=== PATIENT | female | born 1940 | race Caucasian/White ===

== ENCOUNTER → 2020-10-12 15:22 | Outpatient (BNV) | payer MEDICARE, SELFPAY | PROVIDERS: PCP Internal Medicine; Visit Provider Internal Medicine | DX: D72.819 Decreased white blood cell count, unspecified (principal) | CPT/HCPCS: 99212; 99213; 99214; G2211 ==

== ENCOUNTER 2020-12-19 10:44 | Outpatient (REF) | payer MEDICARE, SELFPAY ==
--- NOTE | ~2020-12-19 | XR_ITS ---
EXAMINATION: XR CHEST CLINICAL INFORMATION: Cough COMPARISON: Previous chest x-rays most recent October [address] October 2016 TECHNIQUE: 2 views of the chest were obtained. FINDINGS: The cardiac and mediastinal contours are stable. The right pulmonary hilum is slightly prominent but appears unchanged from old exams. The lung volumes are low. The lungs are clear. There is no pleural effusion or pneumothorax. There are degenerative changes of the spine. XR/XR chest 2V IMPRESSION: No evidence for acute disease in the chest.
== END 2020-12-19 10:45 | disposition home or self-care (01) ==
LOC: HO.LAB 10:44
PROVIDERS: Visit Provider Nurse Practitioner Family
DX: R05 Cough (principal); Z20.822 Contact with and (suspected) exposure to COVID-19
CPT/HCPCS: 36415; 71046; U0003; U0005

== ENCOUNTER 2020-12-19 10:55 | Outpatient (REF) | payer MEDICARE, SELFPAY | END 2020-12-19 10:56 | disposition home or self-care (01) | LOC: HO.HMGCX 10:55 | PROVIDERS: PCP Internal Medicine; Visit Provider Nurse Practitioner Family | DX: Z13.89 Encounter for screening for other disorder (principal) ==

== ENCOUNTER 2021-04-29 10:41 | Outpatient (REF) | payer MEDICARE, SELFPAY ==
--- NOTE | ~2021-04-29 | XR_ITS ---
EXAMINATION: XR CHEST CLINICAL INFORMATION: Cough COMPARISON: Previous chest x-ray November 2020 TECHNIQUE: 2 views of the chest were obtained. FINDINGS: The cardiac and mediastinal contours are stable. The lung volumes are low. The lungs are clear. There is no pleural effusion or pneumothorax. There are degenerative changes of the spine. XR/XR chest 2V IMPRESSION: No evidence for acute disease in the chest.
== END 2021-04-29 10:42 | disposition home or self-care (01) ==
LOC: HO.LAB 10:41
PROVIDERS: Visit Provider Nurse Practitioner Family
DX: Z20.822 Contact with and (suspected) exposure to COVID-19 (principal); R05 Cough
CPT/HCPCS: 71046; U0003; U0005

== ENCOUNTER 2021-04-29 10:51 | Outpatient (REF) | payer MEDICARE, SELFPAY | END 2021-04-29 10:52 | disposition home or self-care (01) | LOC: HO.HMGCX 10:51 | PROVIDERS: PCP Internal Medicine; Visit Provider Nurse Practitioner Family | DX: Z13.89 Encounter for screening for other disorder (principal) ==

== ENCOUNTER 2021-11-07 08:06 | Outpatient (REF) | payer MEDICARE, SELFPAY ==
[2021-11-07 10:43] LABS: Appearance Urine HAZY; Color Urine YELLOW; Glucose Urine UA NEG (NEG); Leukocyte Esterase Urine 1+ (NEG); Nitrite Urine NEG (NEG); PH 6.5 (5.0-8.0); Specific Gravity - Urine <= 1.005 (1.005-1.025); Urine Blood NEG (NEG); Urine Ketones NEG (NEG); Urine Protein NEG (NEG-TRACE)
[2021-11-07 10:45] LABS: Hematocrit 38.9 % (37.0-47.0); Hemoglobin 12.6 g/dl (12.0-16.0); Mean Corpuscular HGB Conc 32.4 g/dl (31.0-35.0); Mean Corpuscular Hemoglobin 29.4 pg (27.0-33.0); Mean Corpuscular Volume 90.9 fL (80.0-98.0); Mean Platelet Volume 12.1 fL (9.4-12.3); Platelet Count 201 X10*3/uL (160-400); Red Blood Count 4.28 X10*6/uL (4.20-5.50); Red Cell Distribution Width 13.9 % (11.0-16.0); White Blood Count 3.3 X10*3/uL (4.8-10.8)
[2021-11-07 10:46] LABS: Alanine Aminotransferase 10 U/L (0-31); Albumin Level 4.2 g/dL (3.5-5.0); Alkaline Phosphatase 57 U/L (39-117); Anion Gap 11 (12-20); Aspartate Amino Transferase 14 U/L (5-31); Bilirubin Direct 0.3 mg/dL (0.0-0.5); Bilirubin Total 0.6 mg/dL (0.0-1.0); Blood Urea Nitrogen 16 mg/dL (9-16); Calcium 8.9 mg/dL (8.4-10.2); Carbon Dioxide 25 mmol/L (22-29); Chloride 106 mmol/L (96-108); Cholesterol 177 mg/dL; Estimated Glomerular Filt Rate > 60; Glucose Random 74 mg/dL (60-115); HDL Cholesterol 51 mg/dL; LDL Cholesterol Calculated 108 mg/dl; Potassium 4.5 mmol/L (3.3-5.1); Sodium 137 mmol/L (135-145); Total Protein 7.1 g/dL (6.5-8.0); Triglycerides 92 mg/dL
[2021-11-07 11:07] LABS: Thyroid Stimulating Hormone 2.33 uIU/mL (0.32-4.0)
[2021-11-07 11:12] LABS: Bacteria Urine 1+ /LPF; Mucus Urine 1+ /LPF; RBC Urine 0 /HPF (0); Squamous Epithelial Cell Urine 1+ /LPF
[2021-11-12 14:43] LABS: Vitamin D 25-OH, D2 <4 ng/mL; Vitamin D 25-OH, D3 11 ng/mL; Vitamin D 25-OH, Total 11 ng/mL (30-100)
== END 2021-11-07 08:07 | disposition home or self-care (01) ==
LOC: HO.10HDL 08:06
PROVIDERS: Visit Provider Internal Medicine
DX: I10 Essential (primary) hypertension (principal)
CPT/HCPCS: 36415; 80048; 80061; 80076; 81001; 82306; 84443; 85027

== ENCOUNTER 2021-11-11 09:18 | Outpatient (REF) | payer MEDICARE, SELFPAY ==
--- NOTE | ~2021-11-11 | XR_ITS ---
EXAMINATION: XR CHEST CLINICAL INFORMATION: Cough. COMPARISON: Chest 04/29/2021 TECHNIQUE: 2 views of the chest were obtained. FINDINGS: The lungs are well-expanded and clear of acute process. The heart size and pulmonary vascularity is normal. No gross bony abnormality seen. XR/XR chest 2V IMPRESSION: Unremarkable chest exam.
[2021-11-11 09:49] LABS: Binax Internal Control QC Valid; Binax Now Covid-19 Ag Negative (Negative); Binax Performed by: HO.BONILM
[2021-11-11 11:45] LABS: Appearance Urine CLEAR; Color Urine YELLOW; Glucose Urine UA NEG (NEG); Leukocyte Esterase Urine TRACE (NEG); Nitrite Urine NEG (NEG); Specific Gravity - Urine <= 1.005 (1.005-1.025); Urine Blood NEG (NEG); Urine Ketones NEG (NEG); Urine Protein NEG (NEG-TRACE)
[2021-11-11 11:56] LABS: Bacteria Urine TRACE /LPF; RBC Urine 0-2 /HPF (0); Squamous Epithelial Cell Urine 1+ /LPF
== END 2021-11-11 09:19 | disposition home or self-care (01) ==
LOC: HO.HMGCLDS 09:18
PROVIDERS: PCP Internal Medicine; Visit Provider Physician Assistant
DX: R05.9 Cough, unspecified (principal)
CPT/HCPCS: 71046; 81001

== ENCOUNTER 2022-02-27 08:50 | Outpatient (REF) | payer MEDICARE, SELFPAY ==
[2022-02-27 10:42] LABS: Thyroid Stimulating Hormone 2.04 uIU/mL (0.32-4.0)
[2022-02-27 10:47] LABS: Alanine Aminotransferase 15 U/L (0-31); Albumin Level 4.3 g/dL (3.5-5.0); Alkaline Phosphatase 60 U/L (39-117); Anion Gap 14 (12-20); Aspartate Amino Transferase 16 U/L (5-31); Bilirubin Direct 0.2 mg/dL (0.0-0.5); Bilirubin Total 0.5 mg/dL (0.0-1.0); Blood Urea Nitrogen 20 mg/dL (9-16); Calcium 9.5 mg/dL (8.4-10.2); Carbon Dioxide 25 mmol/L (22-29); Chloride 103 mmol/L (96-108); Cholesterol 181 mg/dL; Estimated Glomerular Filt Rate > 60; Glucose Random 77 mg/dL (60-115); HDL Cholesterol 53 mg/dL; LDL Cholesterol Calculated 113 mg/dl; Potassium 4.7 mmol/L (3.3-5.1); Sodium 137 mmol/L (135-145); Total Protein 7.5 g/dL (6.5-8.0); Triglycerides 78 mg/dL
== END 2022-02-27 08:51 | disposition home or self-care (01) ==
LOC: HO.LAB 08:50
PROVIDERS: PCP Internal Medicine; Visit Provider Internal Medicine
DX: I10 Essential (primary) hypertension (principal)
CPT/HCPCS: 36415; 80048; 80061; 80076; 84443

== ENCOUNTER 2022-04-18 16:41 | Outpatient (REF) | payer MEDICARE, SELFPAY ==
--- NOTE | ~2022-04-18 | XR_ITS ---
EXAMINATION: XR CHEST CLINICAL INFORMATION: Acute bronchitis. COMPARISON: 11/11/2021 chest radiographs. TECHNIQUE: 2 views of the chest were obtained. FINDINGS: No significant abnormality is noted involving the heart, lungs, mediastinum, bony thorax or soft tissues. XR/XR chest 2V IMPRESSION: No acute cardiopulmonary process.
== END 2022-04-18 16:42 | disposition home or self-care (01) ==
LOC: HO.HMGCX 16:41
PROVIDERS: PCP Internal Medicine; Visit Provider Internal Medicine
DX: Z20.822 Contact with and (suspected) exposure to COVID-19 (principal); J20.9 Acute bronchitis, unspecified
CPT/HCPCS: 71046

== ENCOUNTER 2022-05-20 17:44 | Emergency (ER) | payer MEDICARE, SELFPAY ==
--- NOTE | 2022-05-20 | ECG_ITS ---
Test Reason : sob Blood Pressure : / mmHG Vent. Rate : 093 BPM Atrial Rate : 093 BPM P-R Int : 158 ms QRS Dur : 078 ms QT Int : 328 ms P-R-T Axes : -01 -06 019 degrees QTc Int : 407 ms Normal sinus rhythm Cannot rule out Anterior infarct , age undetermined Abnormal ECG When compared with ECG of 15-MAY-2019 03:34, No significant change was found Referred By: Generic ED Physician Electronically Signed By:LEANNA BOYER
--- NOTE | ~2022-05-20 | XR_ITS ---
EXAMINATION: XR CHEST CLINICAL INFORMATION: COVID positive, rule out pneumonia. COMPARISON: 04/18/2022 chest radiograph. TECHNIQUE: Frontal view of the chest was obtained. FINDINGS: No significant abnormality is noted involving the heart, lungs, mediastinum, bony thorax or soft tissues. XR/XR chest 1V IMPRESSION: No acute cardiopulmonary process.
[2022-05-20 19:26] VITALS: BP 156/69; PULSE 95; RESP 20; TEMP 36.9; O2SAT 96; BMI 33.7
[2022-05-20 19:54] LABS: COVID-19 Test Positive (Negative); IDNOW Serial# 16C4AD1C
--- NOTE | 2022-05-20 23:16 | ED_ITS ---
HPI - URI/Sore Throat General Chief Complaint: Upper Respiratory Symptoms Stated Complaint: Cough COVID + Time Seen by Provider: 05/20/22 21:33 Source: patient Mode of arrival: ambulatory Limitations: no limitations History of Present Illness HPI Narrative: this is an 82-year-old female with a history of hypertension, chronic bronchitis who presents to the emergency room with 2 days of nonproductive cough, fatigue, headache, body aches, chest discomfort with coughing. Patient took a home COVID test that was positive. She has had 3 COVID vaccinations. She denies any shortness of breath, leg swelling or leg pain, fevers, neck pain or stiffness, rash, abdominal pain, vomiting, diarrhea. Related Data Previous Rx's Medication Instructions Recorded albuterol sulfate 90 mcg/actuation 1 inh inhalation Q4-6H PRN 11/11/21 aerosol inhaler (ProAir HFA) shortness of breath or wheezing #6.7 grams lisinopril 20 mg tablet 20 mg PO DAILY #90 tabs 11/27/21 cholecalciferol (vitamin D3) 1,250 1,250 mcg PO QWEEK #12 caps 02/05/22 mcg (50,000 unit) capsule pantoprazole 40 mg tablet,delayed 40 mg PO DAILY #90 tabs 03/05/22 release amitriptyline 10 mg tablet 10 mg PO DAILY #90 tabs 04/24/22 metoprolol succinate 25 mg 25 mg PO DAILY #90 tabs 04/24/22 tablet,extended release 24 hr azithromycin 250 mg tablet See Rx Instructions PO .COMPLEX #6 05/20/22 tabs codeine 10 mg-guaifenesin 100 mg/5 10 ml PO Q4-6H PRN cough #118 mL 05/20/22 mL oral liquid (Virtussin AC) prednisone 20 mg tablet 40 mg PO DAILY #10 tabs 05/20/22 Allergies Allergy/AdvReac Type Severity Reaction Status Date / Time ENVIRONMENTAL Allergy Mild CONGESTION Uncoded 05/15/22 10:16 Review of Systems Review of Systems: Yes all other systems are reviewed and are negative Constitutional: Constitutional: Reports no additional constitutional complaints, Reports body ache(s), Denies chills, Reports fatigue, Denies fever(s), Reports headache(s) and Denies weakness Eyes: Eyes: Reports no additional eye complaints and Denies change in vision ENT: Reports system reviewed and no additional complaints, except as documented, Denies dizziness, Reports headache(s), Denies nasal congestion, Denies nasal discharge and Denies neck pain Cardiovascular: Cardiovascular: Reports no additional cardiovascular complaints, Reports chest pain, Denies leg edema and Denies dyspnea Respiratory: Respiratory: Reports no additional respiratory complaints, Reports cough and Denies dyspnea Gastrointestinal: Gastrointestinal: Reports no additional gastrointestinal complaints, Denies abdominal pain, Denies diarrhea, Denies nausea and Denies vomiting Genitourinary: Genitourinary: Reports no additional female genitourinary complaints and Denies urinary incontinence Musculoskeletal: Musculoskeletal: Reports no additional musculoskeletal complaints, Denies back pain, Denies arthralgias, Denies joint swelling, Denies neck pain, Denies numbness and Denies tingling Integumentary/Breasts: Skin/Breast: Reports system reviewed and no additional complaints, except as docu and Denies rash Neurologic: Reports system reviewed and no additional complaints, except as documented, Denies Abnormal speech present, Denies dizziness, Reports headache(s), Denies numbness, Denies tingling and Denies weakness Endocrine: Endocrine: Reports fatigue PMF Past Medical History Attestation statement: The following information was validated with the patient. Source: old records reviewed and nursing notes reviewed Medical History Chronic anxiety Chronic leukopenia GERD (gastroesophageal reflux disease) History of bronchitis Hypertension Osteoarthritis Surgical History History of cholecystectomy Family History Family History Father Medical history unknown Mother Cancer Sister No problems noted. Son No problems noted. Daughter No problems noted. 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) Vision needs: No Physical Exam Vital Signs: Vital Signs: Last Vital Signs Temp 98.5 F 05/20/22 19:26 Pulse 93 05/20/22 23:33 Resp 18 05/20/22 23:33 BP 165/75 H 05/20/22 23:33 Pulse Ox 97 05/20/22 23:33 O2 Del Method 05/20/22 23:33 BMI result Body Mass Index 33.7 Const: General: cooperative, healthy appearing, comfortable and no acute distress Orientation/consciousness: patient oriented x3 Limitations: no limitations HEENT: Head: Yes normal to inspection Ears: hearing grossly normal bilaterally and TM's normal bilaterally General nose exam: Normal external nose present Face and sinus: Yes normal facial exam Mouth: Normal oral and palatal mucosa present Throat: Yes posterior oropharynx normal, Yes tonsils normal and Yes uvula midline Eyes: General: appearance normal, both eyes and all related structures Pupils: Equal, round and reactive pupils present Neck: Neck: Yes normal visual inspection, Yes full ROM, Yes no lymphadenopathy and Yes no meningeal signs Chest: Chest palpation & inspection: normal inspection of the chest Resp: Effort & Inspection: normal respiratory effort Auscultation: clear to auscultation bilaterally Cardio: Rate: regular rate Rhythm: regular rhythm Peripheral pulses: Peripheral pulses 2+ throughout GI: Inspection: Yes normal to inspection Palpation (GI): Soft to palpation and nontender Auscultation: normal bowel sounds Back/Spine/Pelvis: Thoracic/Lumbar Spine: thoracic and lumbar spine normal to inspection Skin: General skin exam: no rashes or lesions noted Neuro: General: patient oriented x3, no meningeal signs, no focal motor deficits and normal sensation to monofilament Cranial nerves: Yes Equal, round and reactive pupils present Cognition (Neuro): normal cognition Speech: No Abnormal speech present Gait exam (Neuro): Normal gait present Motor exam (neuro): 5/5 motor strength present throughout Extrem: General: Yes normal to inspection, Yes no pedal edema and Yes no calf tenderness Course Course Course Narrative: COVID screen is positive. Chest x-ray shows no occult pneumonia. I discussed this with the patient. We reviewed current treatment options for COVID-19 which are under emergency use authorization and are not FDA approved. these include monoclonal antibodies and Paxlovid. I reviewed both medications with the patient and at this time she is not interested in treatment. I will send her home with prednisone burst, antibiotic course and cough suppressant for night time. Patient has adequate albuterol at home which she can take as needed. We discussed that she should return for any shortness of breath, worsening chest pain, weakness. She is comfortable with this plan of care. Patient is up and ambulating with NO SOB/CP and appears well overall and nontoxic. MDM - URI/Sore Throat MDM Narrative Medical decision making narrative: This is an 82-year-old female who to go home COVID test that was positive who presents today with nonproductive cough, chest discomfort with coughing, headache, body aches, fatigue. Patient has had symptoms for 2 days. On arrival her vital signs are stable. She has no tachypnea, tachycardia, hypoxia or fever. Her lungs are clear. She does have some chest discomfort with coughing only. It is not pleuritic in nature. She has no leg pain or leg swelling. Patient reports history of chronic bronchitis which normally improved with antibiotics and prednisone. She does have an albuterol inhaler at home which she uses for cough as needed. Will check chest x-ray to rule out occult pneumonia, COVID screen here. Medical Records Attestation: I reviewed the patient's medical records. Lab Data Attestation: I reviewed the patient's lab results. Labs: Lab Results 05/20/22 Range/Units 19:42 COVID-19 ([facility]) Positive A (Negative) COVID-19 Clin Com See Note Imaging Data Chest x-ray: Attestation: I personally reviewed and interpreted this imaging study as follows: Radiologist's impression: [address] [address] XRay Report Signed Patient: Elisabeth Darling MR#: [id number] : 1940 Acct:[id number] Age/Sex: 82 / F ADM Date: 05/20/22 Loc: HO.ED Attending Dr: Ordering Physician: Kala Stanley MD Date of Service: 05/20/22 Procedure(s): XR chest 1V Accession Number(s): [id number] cc: Kala Stanley MD~ EXAMINATION: XR CHEST CLINICAL INFORMATION: COVID positive, rule out pneumonia. COMPARISON: 04/18/2022 chest radiograph. TECHNIQUE: Frontal view of the chest was obtained. FINDINGS: No significant abnormality is noted involving the heart, lungs, mediastinum, bony thorax or soft tissues. XR/XR chest 1V IMPRESSION: No acute cardiopulmonary process. ? ECG Data Attestation: I personally reviewed and interpreted this ECG as follows: ECG interpretation date: 05/21/22 ECG interpretation time: 19:32 Interpretation: NSR with rate 93, normal pr. normal qrs, normal qtc Discharge Plan Discharge Clinical Impression: COVID-19 Patient Disposition: Home, Self-Care Instructions: COVID-19 (Coronavirus Disease 2019) (ED) Additional Instructions: we discussed current treatments available for COVID including monoclonal antibodies and Paxlovid. At this time he decided to declined this. If you c hange your mind call me tomorrow. Take Motrin or Tylenol for pain or fever as needed Increase fluids, rest Return for chest pain, shortness of breath as discussed. Continue quarantine Prescriptions: New azithromycin 250 mg tablet See Rx Instructions .ROUTE .COMPLEX Qty: 6 0RF Rx Instructions: For 250 mg dose pack: take 500 mg today (day 1), then 250 mg for 4 days (days 2-5) prednisone 20 mg tablet 40 mg PO DAILY Qty: 10 0RF codeine-guaifenesin [Virtussin AC] 10-100 mg/5 mL liquid 10 ml PO Q4-6H PRN (Reason: cough) Qty: 118 0RF No Action lisinopril 20 mg tablet 20 mg PO DAILY Qty: 90 1RF cholecalciferol (vitamin D3) 1,250 mcg (50,000 unit) capsule 1,250 mcg PO QWEEK Qty: 12 1RF pantoprazole 40 mg tablet,delayed release (DR/EC) 40 mg PO DAILY Qty: 90 1RF amitriptyline 10 mg tablet 10 mg PO DAILY Qty: 90 0RF metoprolol succinate 25 mg tablet extended release 24 hr 25 mg PO DAILY Qty: 90 0RF albuterol sulfate [ProAir HFA] 90 mcg/actuation HFA aerosol inhaler 1 inh inhalation Q4-6H PRN (Reason: shortness of breath or wheezing) Qty: 6.7 0RF Referrals: Mustapha Andrew MD [Primary Care Provider] - 1 week (as needed) Interventions: ED Discharge Assessment Last Done: 05/20/22 23:32 Discharge Date/Time: 05/20/22 23:34
[2022-05-20 23:33] VITALS: BP 165/75; PULSE 93; RESP 18; O2SAT 97
== END 2022-05-20 23:34 | disposition home or self-care (01) ==
PROVIDERS: Emergency Provider Internal Medicine; PCP Internal Medicine
DX: U07.1 COVID-19 (principal); R05.9 Cough, unspecified; M79.10 Myalgia, unspecified site; R51.9 Headache, unspecified; Z79.899 Other long term (current) drug therapy
CPT/HCPCS: 71045; 87635; 93005; 99283

== ENCOUNTER 2022-08-14 14:12 | Outpatient (REF) | payer MEDICARE, SELFPAY ==
--- NOTE | ~2022-08-14 | XR_ITS ---
EXAMINATION: XR CHEST CLINICAL INFORMATION: Cough COMPARISON: 05/20/2022 TECHNIQUE: 2 views of the chest were obtained. FINDINGS: Lung volumes are low. Hazy opacity at the left base with bronchial wall thickening throughout. No pleural effusion or pneumothorax. The cardiomediastinal silhouette is size. Degenerative changes of the spine. XR/XR chest 2V IMPRESSION: Bronchial wall thickening can be seen with a small airways process such as asthma or atypical/viral infection. Left basilar opacity could represent superimposed atelectasis or pneumonia.
== END 2022-08-14 14:13 | disposition home or self-care (01) ==
LOC: HO.HMGCX 14:12
PROVIDERS: PCP Internal Medicine
DX: R05.9 Cough, unspecified (principal)
CPT/HCPCS: 71046

== ENCOUNTER 2022-08-31 08:15 | Emergency (ER) | payer MEDICARE, SELFPAY ==
--- NOTE | ~2022-08-31 | CT_ITS ---
EXAMINATION: CT SINUS WITHOUT CONTRAST CLINICAL INFORMATION: Congestion. COMPARISON: None TECHNIQUE: Noncontrast CT imaging examination of the paranasal sinuses performed. The axial images and multiplanar reformatted images are reviewed. This CT examination was performed using dose optimization techniques as appropriate, variously including the following: *Automated exposure control *Adjustment of mA and/or kV according to patient size (this includes techniques or standardized protocols for targeted exams where dose is matched to indication/reason for exam; i.e. extremities or head) *Use of iterative reconstruction technique DLP: 107 mGy-cm FINDINGS: Frontal sinuses and drainage pathways: Normal. Maxillary sinuses and drainage pathways: Normal. No evidence of mucosal thickening along the ostium and infundibulum. Ethmoid and sphenoid sinuses: Well aerated. Ethmoid roofs are symmetric and lamina papyracea are intact. The sphenoid ostia are patent. Carotid canals are covered by bone. Nasal cavity and nasopharynx: Unremarkable. Orbits: Prior ocular lens extractions. The extraocular muscles, optic nerves and retrobulbar fat are unremarkable. Facial bones, mastoids and temporomandibular joints: Intact. No mastoid effusion. Imaged portions of the brain parenchyma: Normal attenuation. No extra-axial fluid collection within the examined [id number]. CT/CT sinus wo IV con IMPRESSION: The paranasal sinuses are well aerated. No mucoperiosteal thickening or air-fluid levels. No evidence of either acute or chronic sinusitis.
--- NOTE | 2022-08-31 08:17 | ECG_ITS ---
Test Reason : CHEST PAIN Blood Pressure : / mmHG Vent. Rate : 089 BPM Atrial Rate : 089 BPM P-R Int : 156 ms QRS Dur : 078 ms QT Int : 340 ms P-R-T Axes : 004 001 030 degrees QTc Int : 413 ms Normal sinus rhythm Cannot rule out Anterior infarct (cited on or before 20-MAY-2022) Abnormal ECG When compared with ECG of 20-MAY-2022 19:32, No significant change was found Referred By: Easton Waters Electronically Signed By:ODETTE EUGENE MD
[2022-08-31 08:33] VITALS: PULSE 85; RESP 22; O2SAT 98; BMI 34.3
--- NOTE | 2022-08-31 08:47 | ED.SOB ---
HPI - SOB/Dyspnea General Chief Complaint: Dyspnea Stated Complaint: Chest pain/Difficulty breathing Time Seen by Provider: 08/31/22 08:17 Source: patient and family Mode of arrival: ambulatory Limitations: no limitations History of Present Illness HPI Narrative: 82 year old female with PMH of COVID, bronchitis, hypertension and leukopenia presents to the ED this morning c/o continued symptoms of cough, nasal and sinus congestion and excessive mucous production. The patient has been seen by her PCP as well as ENT for the same problem, without resolution. She states that she came to the ER this morning so you could figure out what's wrong . MD elicited complaint: cough and chest pain (with coughing) Onset (ago): month(s) Timing: constant Severity: moderate Exacerbating factors: lying flat Relieving factors: nothing Related Data Home oxygen amount: none Previous Rx's Medication Instructions Recorded albuterol sulfate 90 mcg/actuation 1 inh inhalation Q4-6H PRN 11/11/21 aerosol inhaler (ProAir HFA) shortness of breath or wheezing #6.7 grams codeine 10 mg-guaifenesin 100 mg/5 10 ml PO Q4-6H PRN cough #118 mL 05/20/22 mL oral liquid (Virtussin AC) prednisone 20 mg tablet 40 mg PO DAILY #10 tabs 05/20/22 lisinopril 20 mg tablet 20 mg PO DAILY #90 tabs 05/22/22 amitriptyline 10 mg tablet 10 mg PO DAILY #90 tabs 07/18/22 metoprolol succinate 25 mg 25 mg PO DAILY #90 tabs 07/18/22 tablet,extended release 24 hr cholecalciferol (vitamin D3) 1,250 1,250 mcg PO QWEEK #12 caps 08/01/22 mcg (50,000 unit) capsule acetaminophen 120 mg-codeine 12 10 ml PO Q4-6H PRN pain #200 mL 08/14/22 mg/5 mL (5 mL) oral solution azithromycin 250 mg tablet See Rx Instructions PO .COMPLEX #6 08/14/22 (Zithromax Z-Meet) tabs pantoprazole 40 mg tablet,delayed 40 mg PO DAILY #90 tabs 08/28/22 release benzonatate 200 mg capsule 200 mg PO TID PRN cough #20 caps 08/31/22 fluticasone propionate 50 1 spray intranasal BID #16 grams 08/31/22 mcg/actuation nasal spray,suspension (Flonase Allergy Relief) Allergies Allergy/AdvReac Type Severity Reaction Status Date / Time ENVIRONMENTAL Allergy Mild CONGESTION Uncoded 08/14/22 13:52 Review of Systems Review of Systems: Constitutional: Denies chills and Denies fever(s) Eyes: Denies blurry vision and Denies diplopia ENT: Denies dizziness, admits to nasal congestion and sore throat Cardiovascular: admits to chest pain(with cough), Denies syncope and Denies rapid heart rate Respiratory: admits to cough and Denies wheezing Gastrointestinal: Denies diarrhea, Denies nausea and Denies vomiting Genitourinary: No vaginal bleeding. No discharge. Musculoskeletal: Denies back pain and Denies myalgias Neuro: Denies dizziness and Denies syncope Allergic/Immunologic: Denies wheezing, rash Neurologic: Denies Sensory deficit (Neuro) [facility] Past Medical History Medical History Chronic anxiety Chronic leukopenia GERD (gastroesophageal reflux disease) History of bronchitis Hypertension Osteoarthritis Surgical History History of cholecystectomy Family History Family History Father Medical history unknown Mother Cancer Sister No problems noted. Son No problems noted. Daughter No problems noted. 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) Vision needs: No Physical Exam Vital Signs: Vital Signs: Last Vital Signs Temp 97.7 F 08/31/22 11:20 Pulse 78 08/31/22 11:20 Resp 16 08/31/22 11:20 BP 155/61 H 08/31/22 11:20 Pulse Ox 98 08/31/22 08:56 O2 Del Method 08/31/22 11:20 BMI result Body Mass Index 34.3 VS stable and normal Const: General: cooperative, healthy appearing, comfortable and no acute distress Nutritional Appearance: obese Orientation/consciousness: patient oriented x3 HEENT: Head: Yes normal to inspection, Yes normocephalic and Yes atraumatic Ears: external ears normal General nose exam: Normal external nose present Face and sinus: Yes normal facial exam Mouth: Normal oral and palatal mucosa present Eyes: Conjunctivae: conjunctivae normal Sclerae: sclerae normal Pupils: Equal, round and reactive pupils present EOM: EOMs intact bilaterally Neck: Neck: Yes normal visual inspection and Yes full ROM Resp: Effort & Inspection: normal respiratory effort and no cough Auscultation: clear to auscultation bilaterally Cardio: Rate: regular rate Rhythm: regular rhythm GI: Inspection: Yes normal to inspection and No distended Palpation (GI): nontender Back/Spine/Pelvis: Cervical Spine: normal cervical lordosis Thoracic/Lumbar Spine: thoracic and lumbar spine normal to inspection Skin: General skin exam: no rashes or lesions noted, no mottling and no pallor Neuro: General: patient oriented x3 Cranial nerves: Yes CN's II-XII intact bilaterally and Yes Equal, round and reactive pupils present Motor exam (neuro): 5/5 motor strength present throughout Sensory Exam: No Sensory deficit (Neuro) Extrem: General: Yes normal to inspection, Yes full ROM and Yes no clubbing, cyanosis or edema Medications Administered Discontinued Medications Generic Name Dose Route Start Last Admin Trade Name Freq PRN Reason Stop Dose Admin Albuterol/Ipratropium 3 ml 08/31/22 09:09 08/31/22 10:02 Albuterol/Iprat 2.5/0.5mg 3 Ml Ampul.Neb INHALE 08/31/22 09:10 Not Given ONCE ONE Benzonatate 200 mg 08/31/22 11:07 08/31/22 11:39 Benzonatate 100 Mg Capsule PO 08/31/22 11:08 200 mg ONCE ONE Administration Albuterol Sulfate 7.5 mg/ 0 mg 08/31/22 09:28 08/31/22 09:36 Albuterol/Ipratropium 3 ml INHALE 08/31/22 09:29 10 each ONCE ONE Administration MDM - SOB/Dyspnea MDM Narrative Medical decision making narrative: 82-year-old female with a long history of postnasal drip, cough and upper respiratory symptoms. the patient had a CT of the sinuses here which was normal.Ewa Salinas here in the emergency room which seemed to help. She will be discharged home with follow-up to her primary care doctor . I recommended that she also follow up with an hematology technician, as this could potentially be environmental allergy related. Lab Data Attestation: I reviewed the patient's lab results. Labs: Lab Results 08/31/22 Range/Units 09:30 Influenza Type A (PCR) NEGATIVE (Negative) Influenza Type B (PCR) NEGATIVE (Negative) RSV RNA Qual (PCR) NEGATIVE (Negative) SARS-CoV-2 RNA (RT-PCR) NEGATIVE (Negative) Imaging Data CT sinuses: Radiologist's impression: IMPRESSION: The paranasal sinuses are well aerated. No mucoperiosteal thickening or air-fluid levels. No evidence of either acute or chronic sinusitis ECG Data Attestation: I personally reviewed and interpreted this ECG as follows: ECG interpretation date: 08/31/22 ECG interpretation time: 08:35 Interpretation: NSR at 89 normal intervals, normal axis, normal QTc. No old EKG for comparison Discharge Plan Discharge Clinical Impression: Allergic rhinitis with postnasal drip Cough Qualifiers: Cough type: chronic Qualified Code(s): R05.3 - Chronic cough Leucopenia Qualifiers: Leukopenia type: unspecified Qualified Code(s): D72.819 - Decreased white blood cell count, unspecified Patient Disposition: Home, Self-Care Instructions: Allergic Rhinitis (ED) Prescriptions: New benzonatate 200 mg capsule 200 mg PO TID PRN (Reason: cough) Qty: 20 0RF fluticasone propionate [Flonase Allergy Relief] 50 mcg/actuation spray,suspension 1 spray intranasal BID Qty: 16 0RF Rx Instructions: administer into each nostril No Action lisinopril 20 mg tablet 20 mg PO DAILY Qty: 90 1RF amitriptyline 10 mg tablet 10 mg PO DAILY Qty: 90 0RF metoprolol succinate 25 mg tablet extended release 24 hr 25 mg PO DAILY Qty: 90 0RF cholecalciferol (vitamin D3) 1,250 mcg (50,000 unit) capsule 1,250 mcg PO QWEEK Qty: 12 1RF pantoprazole 40 mg tablet,delayed release (DR/EC) 40 mg PO DAILY Qty: 90 1RF prednisone 20 mg tablet 40 mg PO DAILY Qty: 10 0RF codeine-guaifenesin [Virtussin AC] 10-100 mg/5 mL liquid 10 ml PO Q4-6H PRN (Reason: cough) Qty: 118 0RF acetaminophen-codeine 120 mg-12 mg /5 mL (5 mL) solution 10 ml PO Q4-6H PRN (Reason: pain) Qty: 200 0RF azithromycin [Zithromax Z-Meet] 250 mg tablet See Rx Instructions PO .COMPLEX Qty: 6 0RF Rx Instructions: For 250 mg dose pack: take 500 mg today (day 1), then 250 mg for 4 days (days 2-5) PO albuterol sulfate [ProAir HFA] 90 mcg/actuation HFA aerosol inhaler 1 inh inhalation Q4-6H PRN (Reason: shortness of breath or wheezing) Qty: 6.7 0RF
[2022-08-31 08:56] VITALS: BP 156/58; PULSE 85; RESP 22; O2SAT 98
--- NOTE | 2022-08-31 08:57 | PC.NURSE ---
pt complains of chest pain, congestion, coughing, excessive sputum production. LS whizzing on expiration bilat. she states she can't sleep because she can't stop coughing when laying down and is sick of being sick .
[2022-08-31 09:15] VITALS: BP 150/52; PULSE 72; RESP 14; TEMP 36.4
[2022-08-31] MEDS: Albuterol Sulfate 7.5 MG, Albuterol/Iprat 2.5/0.5MG 3 ML 3 ML INHALE (09:36)
[2022-08-31 09:37] VITALS: PULSE 74; RESP 18; O2SAT 96
[2022-08-31 10:21] LABS: Influenza A PCR NEGATIVE (Negative); Influenza B PCR NEGATIVE (Negative); Resp Syncy Virus RNA Qual PCR NEGATIVE (Negative); SARS COV2 PCR INHOUSE NEGATIVE (Negative)
[2022-08-31 11:20] VITALS: BP 155/61; PULSE 78; RESP 16; TEMP 36.5
[2022-08-31] MEDS: Benzonatate 100 MG CAPSULE 200 MG PO (11:39)
--- NOTE | 2022-08-31 11:43 | PC.NURSE ---
pt alert and oriented. she states breathing treatment helped. gave her cough med. waiting deposition.
== END 2022-08-31 14:08 | disposition home or self-care (01) ==
PROVIDERS: Emergency Provider Emergency Medicine; PCP Internal Medicine
DX: J30.9 Allergic rhinitis, unspecified (principal); D72.819 Decreased white blood cell count, unspecified; R07.89 Other chest pain; R06.02 Shortness of breath; R05.3 Chronic cough; Z20.822 Contact with and (suspected) exposure to COVID-19; Z79.899 Other long term (current) drug therapy
CPT/HCPCS: 0241U; 70486; 93005; 94640; 99284

== ENCOUNTER 2022-09-17 12:45 | Emergency (ER) | payer MEDICARE, SELFPAY ==
--- NOTE | ~2022-09-17 | US_ITS ---
EXAMINATION: US VENOUS ULTRASOUND WITH DOPPLER LOWER EXTREMITY, RIGHT CLINICAL INFORMATION: Right leg numbness, swelling, pain COMPARISON: Right lower extremity venous ultrasound with Doppler 10/10/2019. TECHNIQUE: Ultrasound of the deep veins is performed from the hip to the calf with compression sonography and color and pulse Doppler assessment. Spectral analysis with color-flow imaging is performed. FINDINGS: There is incomplete compressibility and subtle echogenic thrombus seen in the right femoral vein proximal thigh. The lumen is wide and there is no venous wall thickening to suggest chronic thrombus. There is also DVT suggested in the profunda femoris vein and poor flow documented in the posterior tibial vein. The remainder of the deep veins show normal compressibility and Doppler and augmentation of flow. No thrombus noted in right common femoral vein. Additional imaging of the left common femoral vein shows no contralateral thrombus at the groin. Results are called to Dr. Kala Stanley in the emergency department at 1552 hours. US/US venous duplex LE RT IMPRESSION: -Positive for DVT right femoral vein and profunda femoris in region of upper thigh. -Suspect thrombus upper calf posterior tibial vein.
--- NOTE | ~2022-09-17 | CT_ITS ---
EXAMINATION: CT HEAD WITHOUT CONTRAST CLINICAL INFORMATION: Right leg numbness. Rule out stroke. COMPARISON: None. TECHNIQUE: Contiguous axial imaging was performed from the skullbase to vertex without intravenous administration of contrast. This CT examination was performed using dose optimization techniques as appropriate, variously including the following: *Automated exposure control *Adjustment of mA and/or kV according to patient size (this includes techniques or standardized protocols for targeted exams where dose is matched to indication/reason for exam; i.e. extremities or head) *Use of iterative reconstruction technique DLP: 533 mGy-cm. FINDINGS: There is no evidence of acute intracranial hemorrhage or territorial infarction. No abnormal mass effect or midline shift is seen. Dominguez to white matter differentiation is well preserved. No extra-axial fluid collections are identified. The ventricles are normal in size. There is no abnormal attenuation within the brain parenchyma. The osseous structures and soft tissues are normal. The mastoid air cells and visualized portions of the paranasal sinuses are well aerated. Moderate degenerative changes noted in the condylar head of the right temporomandibular joint. CT/CT head/brain wo IV con IMPRESSION: No acute territorial infarction or intracranial hemorrhage.
[2022-09-17 12:51] VITALS: BP 154/58; PULSE 96; RESP 16; TEMP 36.6; O2SAT 100; BMI 33.6
--- NOTE | 2022-09-17 13:00 | ED_ITS ---
HPI - Extremity Injury (Lower) General Chief Complaint: Extremity Injury, Lower <Zach Wang MD - Last Filed: 09/17/22 13:03> Stated Complaint: R Leg Pain Burning <Zach Wang MD - Last Filed: 09/17/22 13:03> Time Seen by Provider: 09/17/22 13:49 <Zach Wang MD - Last Filed: 09/17/22 13:03> Source: patient <Shanique Dejesus MD - Last Filed: 09/17/22 15:57> Mode of arrival: ambulatory <Shanique Dejesus MD - Last Filed: 09/17/22 15:57> History of Present Illness HPI Narrative: 82-year-old female with 2 days of right inner thigh pain/?cold?/heaviness, using a cane because of the pain and denies the use of any blood thinners or prior injuries. She denies any fever, chills, shortness of breath, recent tra jeniffer. <Shanique Dejesus MD - Last Filed: 09/17/22 15:57> Related Data Home Medications: Previous Rx's Medication Instructions Recorded albuterol sulfate 90 mcg/actuation 1 inh inhalation Q4-6H PRN 11/11/21 aerosol inhaler (ProAir HFA) shortness of breath or wheezing #6.7 grams codeine 10 mg-guaifenesin 100 mg/5 10 ml PO Q4-6H PRN cough #118 mL 05/20/22 mL oral liquid (Virtussin AC) prednisone 20 mg tablet 40 mg PO DAILY #10 tabs 05/20/22 lisinopril 20 mg tablet 20 mg PO DAILY #90 tabs 05/22/22 amitriptyline 10 mg tablet 10 mg PO DAILY #90 tabs 07/18/22 metoprolol succinate 25 mg 25 mg PO DAILY #90 tabs 07/18/22 tablet,extended release 24 hr cholecalciferol (vitamin D3) 1,250 1,250 mcg PO QWEEK #12 caps 08/01/22 mcg (50,000 unit) capsule acetaminophen 120 mg-codeine 12 10 ml PO Q4-6H PRN pain #200 mL 08/14/22 mg/5 mL (5 mL) oral solution azithromycin 250 mg tablet See Rx Instructions PO .COMPLEX #6 08/14/22 (Zithromax Z-Meet) tabs pantoprazole 40 mg tablet,delayed 40 mg PO DAILY #90 tabs 08/28/22 release benzonatate 200 mg capsule 200 mg PO TID PRN cough #20 caps 08/31/22 fluticasone propionate 50 1 spray intranasal BID #16 grams 08/31/22 mcg/actuation nasal spray,suspension (Flonase Allergy Relief) apixaban 5 mg (74 tabs) tablets in 5 mg PO BID #74 ea 09/17/22 a dose pack (Eliquis DVT-PE Treat 30D Start) <Zach Wang MD - Last Filed: 09/17/22 13:03> Allergies/Adverse Reactions: Allergies Allergy/AdvReac Type Severity Reaction Status Date / Time ENVIRONMENTAL Allergy Mild CONGESTION Uncoded 08/14/22 13:52 <Zach Wang MD - Last Filed: 09/17/22 13:03> Review of Systems Review of Systems: Pertinent positives and negatives as stated in HPI 10 point review of systems is otherwise negative. <Shanique Dejesus MD - Last Filed: 09/17/22 15:57> PMFSH Past Medical History Source: nursing notes reviewed <Shanique Dejesus MD - Last Filed: 09/17/22 15:57> Medical History: Medical History Chronic anxiety Chronic leukopenia GERD (gastroesophageal reflux disease) History of bronchitis Hypertension Osteoarthritis <Zach Wang MD - Last Filed: 09/17/22 13:03> Surgical History: Surgical History History of cholecystectomy <Zach Wang MD - Last Filed: 09/17/22 13:03> Family History Family History: Family History Father Medical history unknown Mother Cancer Sister No problems noted. Son No problems noted. Daughter No problems noted. 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 GENERAL: Well developed, well nourished, in no acute distress. HEAD: Normocephalic/atraumatic EYES: PERRLA, EOMI EARS: Ext canals without abnormality OROPHARYNX: no oral lesions noted, posterior pharynx clear LUNGS: Normal breath sounds. No adventitious sounds or accessory muscle use. SpO2<100> CARDIOVASCULAR: Regular rate and rhythm without noted murmurs ABDOMEN: Soft, non-tender, non-distended with bowel sounds. MUSCULOSKELETAL: No tenderness, deformities, or effusions noted on gross inspection. EXTREMITIES: No cyanosis, clubbing or edema; RIGHT LOWER EXTREMITY: There is no erythema, induration, the foot is warm and I am able to palpate AT/PT, sensation is intact dense venous varicosity, no palpable cords. SKIN: Inspection of the skin reveals no rashes NEUROLOGIC: Alert and oriented x 4. Strength and sensation to light touch were grossly intact x 4, no facial asymmetry, no pronator drift, cranial nerves 2-12 are grossly intact.. <Shanique Dejesus MD - Last Filed: 09/17/22 15:57> Course Course Course Narrative: RME: 82-year-old female with history of leukopenia, hypertension who presents emergency department for evaluation of 2 days of right leg/thigh burning sensation, heaviness without redness or swelling. Patient states that she had a vascular procedure done by Dr. Boggs 5 years prior but the symptoms feel different. Physical exam did reveal foot with normal temperature, entire leg was not examined in triage. I ordered a CBC, CMP, PT/INR, PTT, right lower extremity duplex ultrasound, CT scan of the brain to rule out stroke as possible cause of the leg heaviness. Patient will be placed back in triage. <Zach Wang MD - Last Filed: 09/17/22 13:03> RME: 82-year-old female with history of leukopenia, hypertension who p resents emergency department for evaluation of 2 days of right leg/thigh burning sensation, heaviness without redness or swelling. Patient states that she had a vascular procedure done by Dr. Boggs 5 years prior but the symptoms feel different. Physical exam did reveal foot with normal temperature, entire leg was not examined in triage. I ordered a CBC, CMP, PT/INR, PTT, right lower extremity duplex ultrasound, CT scan of the brain to rule out stroke as possible cause of the leg heaviness. Patient will be placed back in triage. Review of all investigations and patient has DVT, she received initial Eliquis here in the emergency room and then was discharged on 30 day course. <Shanique Dejesus MD - Last Filed: 09/17/22 15:57> Medical Decision Making Medical Decision Making MDM Narrative: 82-year-old female with history and clinical presentation right inner thigh pain. On clinical exam there is minimal evidence to suggest a thrombophlebitis, cellulitis. 1517: Ultrasound stenographer informed me that patient has a DVT, the patient is specifically requesting Eliquis and on review of renal function there should be no problem. The otherwise, right lower extremity seems to be functioning fine with good arterial flow no evidence of coolness or lack of perfusion. <Shanique Dejesus MD - Last Filed: 09/17/22 15:57> Differential Diagnosis Differential Diagnoses: The differential diagnosis associated with the presentation includes <Shanique Dejesus MD - Last Filed: 09/17/22 15:57> DVT, thrombophlebitis, cellulitis, muscle strain, stroke <Shanique Dejesus MD - Last Filed: 09/17/22 15:57> Lab Data MDM Lab Attestation statement: I reviewed the patient's lab results. <Shanique Dejesus MD - Last Filed: 09/17/22 15:57> I reviewed all laboratory investigations and was informed by the jar capper that patient has a DVT located in the CFV and involving the profunda <Shanique Dejesus MD - Last Filed: 09/17/22 15:57> Result Diagrams: : 09/17/22 13:14 09/17/22 13:14 <Zach Wang MD - Last Filed: 09/17/22 13:03> Labs: Lab Results 09/17/22 09/17/22 09/17/22 Range/Units 13:14 13:14 13:14 WBC 7.8 (4.8-10.8) X10*3/uL RBC 4.28 (4.20-5.50) X10*6/uL Hgb 12.9 (12.0-16.0) g/dl Hct 39.2 (37.0-47.0) % MCV 91.6 (80.0-98.0) fL MCH 30.1 (27.0-33.0) pg MCHC 32.9 (31.0-35.0) g/dl RDW 13.0 (11.0-16.0) % Plt Count 135 L D (160-400) X10*3/uL MPV Not Reportable Immature Gran % (Auto) 1.3 H (0.0-0.4) % Neut % (Auto) 62.0 (45-73) % Lymph % (Auto) 19.9 L (20-40) % [place] % (Auto) 16.1 H (2-11) % Eos % (Auto) 0.4 (0-4) % Baso % (Auto) 0.3 (0-2) % Lymph # (Auto) 1.6 (1.2-4.9) X10*3/uL [place] # (Auto) 1.3 H (0.1-1.2) X10*3/uL Eos # (Auto) 0.0 (0.0-0.4) X10*3/uL Baso # (Auto) 0.0 (0.0-0.2) X10*3/uL Abs Immat Gran (auto) 0.10 H (0.00-0.03) X10*3/uL Absolute Neuts (auto) 4.9 (2.0-8.3) x10*3/uL Absolute Nucleated RBC 0.000 (0.0-0.012) X10*3/uL Nucleated RBC % (auto) 0.0 (0.0-0.2) /100WBC Smear Tech's Comments VERIFIED PT 12.0 (10.0-13.1) SEC INR 1.0 (0.9-1.1) APTT 34.4 (26.0-36.4) SEC Sodium 137 (135-145) mmol/L Potassium 4.1 (3.3-5.1) mmol/L Chloride 104 (96-108) mmol/L Carbon Dioxide 25 (22-29) mmol/L Anion Gap 12 (12-20) BUN 14 (9-16) mg/dL Creatinine 0.85 (0.5-1.4) mg/dL Estim Creat Clear Calc 46.8 Estimated GFR > 60 Random Glucose 127 H (60-115) mg/dL Calcium 9.3 (8.4-10.2) mg/dL Total Bilirubin 0.7 (0.0-1.0) mg/dL AST 14 (5-31) U/L ALT 10 (0-31) U/L Alkaline Phosphatase 66 (39-117) U/L Total Protein 7.2 (6.5-8.0) g/dL Albumin 4.3 (3.5-5.0) g/dL <Zach Wang MD - Last Filed: 09/17/22 13:03> Lab Results 09/17/22 09/17/22 09/17/22 Range/Units 13:14 13:14 13:14 WBC 7.8 (4.8-10.8) X10*3/uL RBC 4.28 (4.20-5.50) X10*6/uL Hgb 12.9 (12.0-16.0) g/dl Hct 39.2 (37.0-47.0) % MCV 91.6 (80.0-98.0) fL MCH 30.1 (27.0-33.0) pg MCHC 32.9 (31.0-35.0) g/dl RDW 13.0 (11.0-16.0) % Plt Count 135 L D (160-400) X10*3/uL MPV Not Reportable Immature Gran % (Auto) 1.3 H (0.0-0.4) % Neut % (Auto) 62.0 (45-73) % Lymph % (Auto) 19.9 L (20-40) % [place] % (Auto) 16.1 H (2-11) % Eos % (Auto) 0.4 (0-4) % Baso % (Auto) 0.3 (0-2) % Lymph # (Auto) 1.6 (1.2-4.9) X10*3/uL [place] # (Auto) 1.3 H (0.1-1.2) X10*3/uL Eos # (Auto) 0.0 (0.0-0.4) X10*3/uL Baso # (Auto) 0.0 (0.0-0.2) X10*3/uL Abs Immat Gran (auto) 0.10 H (0.00-0.03) X10*3/uL Absolute Neuts (auto) 4.9 (2.0-8.3) x10*3/uL Absolute Nucleated RBC 0.000 (0.0-0.012) X10*3/uL Nucleated RBC % (auto) 0.0 (0.0-0.2) /100WBC Smear Tech's Comments VERIFIED PT 12.0 (10.0-13.1) SEC INR 1.0 (0.9-1.1) APTT 34.4 (26.0-36.4) SEC Sodium 137 (135-145) mmol/L Potassium 4.1 (3.3-5.1) mmol/L Chloride 104 (96-108) mmol/L Carbon Dioxide 25 (22-29) mmol/L Anion Gap 12 (12-20) BUN 14 (9-16) mg/dL Creatinine 0.85 (0.5-1.4) mg/dL Estim Creat Clear Calc 46.8 Estimated GFR > 60 Random Glucose 127 H (60-115) mg/dL Calcium 9.3 (8.4-10.2) mg/dL Total Bilirubin 0.7 (0.0-1.0) mg/dL AST 14 (5-31) U/L ALT 10 (0-31) U/L Alkaline Phosphatase 66 (39-117) U/L Total Protein 7.2 (6.5-8.0) g/dL Albumin 4.3 (3.5-5.0) g/dL <Shanique Dejesus MD - Last Filed: 09/17/22 15:57> Independent Interpretation I performed an independent interpretation of an: EKG <Shanique Dejesus MD - Last Filed: 09/17/22 15:57> Interpretation: NSR, HR-86, no STEMI, KS/QRS/QTC is within normal limits. <Shanique Dejesus MD - Last Filed: 09/17/22 15:57> Radiology Impression Discussion of test interpretation with radiology: I have reviewed the radiologist's reading. <Shanique Dejesus MD - Last Filed: 09/17/22 15:57> Radiologist Impression: My interpretation of patient's head CT in agreement with radiology's impression. My interpretation of patient's venous duplex is in agreement with radiology's impression. <Shanique Dejesus MD - Last Filed: 09/17/22 15:57> Chronic Conditions Patient?s care impacted by: Hypertension <Shanique Dejesus MD - Last Filed: 09/17/22 15:57> Critical Care Time Critical Care Time Critical Care Time: Yes <Shanique Dejesus MD - Last Filed: 09/17/22 15:57> Total Critical Care Time: 30 <Shanique Dejesus MD - Last Filed: 09/17/22 15:57> Attestation: I personally attest to this time spent taking care of the patient. <Shanique Dejesus MD - Last Filed: 09/17/22 15:57> Discharge Plan Discharge Clinical Impression: DVT (deep venous thrombosis) <Zach Wang MD - Last Filed: 09/17/22 13:03> Patient Disposition: Home, Self-Care <Zach Wang MD - Last Filed: 09/17/22 13:03> Instructions: Apixaban (By mouth), Deep Vein Thrombosis (ED) <Zach Wang MD - Last Filed: 09/17/22 13:03> Additional Instructions: 1. Please take your 1st dose of Eliquis tomorrow morning as you have received the evening dose for today. 2. Resume all other home medications as prescribed. 3. Call the office of your primary care provider and set up an appointment for re-evaluation further outpatient management. Return to the ER for any worsening symptoms. <Zach Wang MD - Last Filed: 09/17/22 13:03> Prescriptions: New Eliquis DVT-PE Treat 30D Start 5 mg (74 tabs) tablets,dose pack 5 mg PO BID Qty: 74 0RF No Action lisinopril 20 mg tablet 20 mg PO DAILY Qty: 90 1RF amitriptyline 10 mg tablet 10 mg PO DAILY Qty: 90 0RF metoprolol succinate 25 mg tablet extended release 24 hr 25 mg PO DAILY Qty: 90 0RF cholecalciferol (vitamin D3) 1,250 mcg (50,000 unit) capsule 1,250 mcg PO QWEEK Qty: 12 1RF pantoprazole 40 mg tablet,delayed release (DR/EC) 40 mg PO DAILY Qty: 90 1RF benzonatate 200 mg capsule 200 mg PO TID PRN (Reason: cough) Qty: 20 0RF fluticasone propionate [Flonase Allergy Relief] 50 mcg/actuation spray,suspension 1 spray intranasal BID Qty: 16 0RF Rx Instructions: administer into each nostril prednisone 20 mg tablet 40 mg PO DAILY Qty: 10 0RF codeine-guaifenesin [Virtussin AC] 10-100 mg/5 mL liquid 10 ml PO Q4-6H PRN (Reason: cough) Qty: 118 0RF acetaminophen-codeine 120 mg-12 mg /5 mL (5 mL) solution 10 ml PO Q4-6H PRN (Reason: pain) Qty: 200 0RF azithromycin [Zithromax Z-Meet] 250 mg tablet See Rx Instructions PO .COMPLEX Qty: 6 0RF Rx Instructions: For 250 mg dose pack: take 500 mg today (day 1), then 250 mg for 4 days (days 2-5) PO albuterol sulfate [ProAir HFA] 90 mcg/actuation HFA aerosol inhaler 1 inh inhalation Q4-6H PRN (Reason: shortness of breath or wheezing) Qty: 6.7 0RF <Zach Wang MD - Last Filed: 09/17/22 13:03> Referrals: uMstapha Andrew MD [Primary Care Provider] - (Diagnosis DVT and started with 30 day and will need remaining course) <Zach Wang MD - Last Filed: 09/17/22 13:03>
--- NOTE | 2022-09-17 13:05 | ECG_ITS ---
Test Reason : chest pain Blood Pressure : / mmHG Vent. Rate : 086 BPM Atrial Rate : 086 BPM P-R Int : 154 ms QRS Dur : 084 ms QT Int : 350 ms P-R-T Axes : 005 -09 012 degrees QTc Int : 418 ms Normal sinus rhythm Minimal voltage criteria for LVH, may be normal variant ( R in aVL ) Cannot rule out Anterior infarct (cited on or before 20-MAY-2022) Abnormal ECG When compared with ECG of 31-AUG-2022 08:25, No significant change was found Referred By: Zach Wang Electronically Signed By:Raz Chung
[2022-09-17 13:24] LABS: Basophils Percent Auto 0.3 % (0-2); Eosinophils Percent Auto 0.4 % (0-4); Hematocrit 39.2 % (37.0-47.0); Hemoglobin 12.9 g/dl (12.0-16.0); Imm Gran Pct Auto 1.3 % (0.0-0.4); Lymphocytes Absolute Auto 1.6 X10*3/uL (1.2-4.9); Lymphocytes Percent Auto 19.9 % (20-40); MANUAL DIFF FLAG SCAN; Mean Corpuscular HGB Conc 32.9 g/dl (31.0-35.0); Mean Corpuscular Hemoglobin 30.1 pg (27.0-33.0); Mean Corpuscular Volume 91.6 fL (80.0-98.0); Monocytes Absolute Auto 1.3 X10*3/uL (0.1-1.2); Monocytes Percent Auto 16.1 % (2-11); Neutrophils Absolute Auto 4.9 x10*3/uL (2.0-8.3); PLT CLUMP 1; Red Blood Count 4.28 X10*6/uL (4.20-5.50); SCAN SMEAR FLAG 1
[2022-09-17 13:30] LABS: Partial Thromboplastin Time 34.4 SEC (26.0-36.4)
--- NOTE | 2022-09-17 13:39 | PC.NURSE ---
pt a&ox3, vss, pt reporting 7/10 bilateral upper leg/thigh pain started ~2 days ago. pt pending u/s, and CT results.
[2022-09-17 13:49] LABS: Platelet Count 135 X10*3/uL (160-400); SLIDE REVIEW VERIFIED; White Blood Count 7.8 X10*3/uL (4.8-10.8)
[2022-09-17 13:52] LABS: Alanine Aminotransferase 10 U/L (0-31); Albumin Level 4.3 g/dL (3.5-5.0); Alkaline Phosphatase 66 U/L (39-117); Anion Gap 12 (12-20); Aspartate Amino Transferase 14 U/L (5-31); Bilirubin Total 0.7 mg/dL (0.0-1.0); Blood Urea Nitrogen 14 mg/dL (9-16); Calcium 9.3 mg/dL (8.4-10.2); Carbon Dioxide 25 mmol/L (22-29); Chloride 104 mmol/L (96-108); Creatinine Clr Calc Pharmacy 46.8; Estimated Glomerular Filt Rate > 60; Glucose Random 127 mg/dL (60-115); Potassium 4.1 mmol/L (3.3-5.1); Sodium 137 mmol/L (135-145); Total Protein 7.2 g/dL (6.5-8.0)
[2022-09-17] MEDS: Acetaminophen 325 MG TABLET 975 MG PO (16:10)
[2022-09-17] MEDS: Apixaban 5 MG TABLET 10 MG PO (16:11)
--- NOTE | 2022-09-17 16:15 | PC.NURSE ---
pt medicated per provider order.
== END 2022-09-17 16:19 | disposition home or self-care (01) ==
PROVIDERS: Emergency Medicine Emergency Medical Services; Emergency Provider Student in an Organized Health Care Education/Training Program; PCP Internal Medicine
DX: I82.411 Acute embolism and thrombosis of right femoral vein (principal); M79.604 Pain in right leg; I10 Essential (primary) hypertension; Z79.899 Other long term (current) drug therapy
CPT/HCPCS: 36415; 70450; 80053; 85025; 85610; 85730; 93005; 93971; 99284

== ENCOUNTER 2022-11-15 10:28 | Outpatient (REF) | payer MEDICARE, SELFPAY ==
--- NOTE | ~2022-11-15 | XR_ITS ---
EXAMINATION: XR CHEST CLINICAL INFORMATION: Acute bronchitis. COMPARISON: None TECHNIQUE: 2 views of the chest were obtained. FINDINGS: No significant abnormality is noted involving the heart, lungs, mediastinum, or soft tissues. Uncoiled aorta, suggesting hypertension. Mild degenerative changes of the spine. XR/XR chest 2V IMPRESSION: No acute finding.
== END 2022-11-15 10:29 | disposition home or self-care (01) ==
LOC: HO.HMGCX 10:28
PROVIDERS: PCP Internal Medicine; Visit Provider Internal Medicine
DX: J20.9 Acute bronchitis, unspecified (principal)
CPT/HCPCS: 71046

== ENCOUNTER 2022-12-05 10:08 | Outpatient (REF) | payer MEDICARE, SELFPAY ==
--- NOTE | ~2022-12-05 | XR_ITS ---
EXAMINATION: XR KNEE, RIGHT CLINICAL INFORMATION: Right knee contusion. COMPARISON: None TECHNIQUE: Four views of the right knee. FINDINGS: Bones and soft tissues are normal. No fracture or joint effusion. Alignment is anatomic. Joint spaces are well maintained. Mild soft tissue swelling without focal abnormality. XR/XR knee RT 4V IMPRESSION: Mild soft tissue swelling without acute underlying osseous abnormality.
== END 2022-12-05 10:09 | disposition home or self-care (01) ==
LOC: HO.HMGCX 10:08
PROVIDERS: PCP Internal Medicine; Visit Provider Internal Medicine
DX: S80.01XA Contusion of right knee, initial encounter (principal)
CPT/HCPCS: 73564

== ENCOUNTER 2023-03-04 04:54 | Emergency (ER) | payer MEDICARE, SELFPAY ==
--- NOTE | ~2023-03-04 | XR_ITS ---
EXAMINATION: PELVIS AND LEFT HIP, RIGHT KNEE CLINICAL INFORMATION: Right knee pain with question of pubic ramus fracture COMPARISON: Right knee 12/05/2022 TECHNIQUE: 4 views right knee, single view pelvis with 2 additional views left hip FINDINGS: No significant bone, joint or soft tissue abnormality is seen faint vascular calcifications are present. No pelvic fracture is seen the pubic rami appear normal. Degenerative changes are present at the pubic symphysis with sclerosis and some mild osteophytes. Some minimal degenerative changes are present in both hips, left greater than right with some lateral acetabular osteophytes. There is amorphous calcification above the greater trochanter which could represent calcific tendinitis of the gluteus medius on the left. XR/XR hip LT w PEL1V IMPRESSION: 1. No evidence of a traumatic osseous injury. 2. Calcific tendinitis of the gluteus medius on the left. 3. Mild degenerative changes in the hips, left greater than right.
--- NOTE | ~2023-03-04 | XR_ITS ---
EXAMINATION: PELVIS AND LEFT HIP, RIGHT KNEE CLINICAL INFORMATION: Right knee pain with question of pubic ramus fracture COMPARISON: Right knee 12/05/2022 TECHNIQUE: 4 views right knee, single view pelvis with 2 additional views left hip FINDINGS: No significant bone, joint or soft tissue abnormality is seen faint vascular calcifications are present. No pelvic fracture is seen the pubic rami appear normal. Degenerative changes are present at the pubic symphysis with sclerosis and some mild osteophytes. Some minimal degenerative changes are present in both hips, left greater than right with some lateral acetabular osteophytes. There is amorphous calcification above the greater trochanter which could represent calcific tendinitis of the gluteus medius on the left. XR/XR knee RT 4V IMPRESSION: 1. No evidence of a traumatic osseous injury. 2. Calcific tendinitis of the gluteus medius on the left. 3. Mild degenerative changes in the hips, left greater than right.
[2023-03-04 04:56] VITALS: BP 188/67; PULSE 80; RESP 20; TEMP 36.6; O2SAT 100; BMI 33.7
--- NOTE | 2023-03-04 07:29 | ED.GENADULT ---
HPI - General Adult General Chief complaint: Extremity Problem Stated complaint: Fall/ Difficulty walking Time Seen by Provider: 03/04/23 07:28 Source: patient Mode of arrival: ambulatory Limitations: no limitations History of Present Illness HPI narrative: Patient 82 year so very active and healthy on Eliquis for left leg DVT apparently fell about a month ago landed on her knees says has not been having pain in both knees right more than left and left groin area patient was seen by PCP who did x-ray of the knee which was negative but still patient complaining of pain in the left groin area patient is on Flexeril and take a Tylenol without much relief no swelling of the thigh muscles no bruising pain increases on ambulation only Related Data Previous Rx's Medication Instructions Recorded albuterol sulfate 90 mcg/actuation 1 inh inhalation Q4-6H PRN 11/11/21 aerosol inhaler (ProAir HFA) shortness of breath or wheezing #6.7 grams fluticasone propionate 50 1 spray intranasal BID #16 grams 08/31/22 mcg/actuation nasal spray,suspension (Flonase Allergy Relief) montelukast 10 mg tablet 10 mg PO BEDTIME #90 tabs 11/15/22 (Singulair) lisinopril 20 mg tablet 20 mg PO DAILY #90 tabs 11/19/22 walker #1 ea 12/26/22 amitriptyline 10 mg tablet 10 mg PO DAILY #90 tabs 01/13/23 metoprolol succinate 25 mg 25 mg PO DAILY #90 tabs 01/13/23 tablet,extended release 24 hr apixaban 5 mg tablet (Eliquis) 5 mg PO BID #180 tabs 01/18/23 cholecalciferol (vitamin D3) 1,250 1,250 mcg PO QWEEK #12 caps 01/29/23 mcg (50,000 unit) capsule pantoprazole 40 mg tablet,delayed 40 mg PO DAILY #90 tabs 02/24/23 release cyclobenzaprine 10 mg tablet 10 mg PO BEDTIME #14 tabs 02/25/23 tramadol 50 mg tablet 50 mg PO BID PRN pain #20 tabs 03/04/23 Allergies Allergy/AdvReac Type Severity Reaction Status Date / Time ENVIRONMENTAL Allergy Mild CONGESTION Uncoded 12/23/22 11:21 Review of Systems Review of Systems: Yes all other systems are reviewed and are negative PMFSH Past Medical History Medical History Chronic anxiety Chronic leukopenia Deep vein thrombosis of right femoral vein GERD (gastroesophageal reflux disease) History of bronchitis Hypertension Osteoarthritis Surgical History History of cholecystectomy Family History Family History Father Medical history unknown Mother Cancer Sister No problems noted. Son No problems noted. Daughter No problems noted. 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 Oriented X3. No acute distress. CVS: Normal heart rate and rhythm. Pulses normal. Respiratory: No respiratory distress. Equal air entry bilateral, no wheezing/rales/rhonchi Abdomen: Soft and nontender. Bowel sounds are present, Skin: Skin warm and dry. Normal skin color. Normal skin turgor. Extremities: No lower extremity edema. No calf tenderness Neuro: Oriented X 3. No motor deficit. Extrem Upper/lower leg/hip images: 1. Increased pain in left groin area especially on adduction and flexion no soft tissue swelling or bruising neurovascular intact 2. Diffuse pain right knee with no significant effusion anterior drawer sign and McBurney sign negative Medical Decision Making Medical Decision Making MDM Narrative: Patient with left groin strain x-ray negative for pubic rami fracture, shows calcified gluteus tendon, with discharge patient home on tramadol advised to follow-up with PCP Discharge Plan Discharge Clinical Impression: Strain of left hip adductor muscle Patient Disposition: Home, Self-Care Instructions: Groin Strain (ED) Additional Instructions: Rest to your left leg do not go upstairs Pain medication as prescribed Follow with PCP as needed Prescriptions: New tramadol 50 mg tablet 50 mg PO BID PRN (Reason: pain) Qty: 20 0RF No Action lisinopril 20 mg tablet 20 mg PO DAILY Qty: 90 1RF (DME) walker Misc See Rx Instructions .Route Qty: 1 0RF Rx Instructions: As directed amitriptyline 10 mg tablet 10 mg PO DAILY Qty: 90 0RF metoprolol succinate 25 mg tablet extended release 24 hr 25 mg PO DAILY Qty: 90 0RF Eliquis 5 mg tablet 5 mg PO BID Qty: 180 0RF cholecalciferol (vitamin D3) 1,250 mcg (50,000 unit) capsule 1,250 mcg PO QWEEK Qty: 12 1RF pantoprazole 40 mg tablet,delayed release (DR/EC) 40 mg PO DAILY Qty: 90 1RF fluticasone propionate [Flonase Allergy Relief] 50 mcg/actuation spray,suspension 1 spray intranasal BID Qty: 16 0RF Rx Instructions: administer into each nostril ipratropium-albuterol 0.5 mg-3 mg(2.5 mg base)/3 mL solution for nebulization 3 ml inhalation ONCE Qty: 3 0RF albuterol sulfate 2.5 mg /3 mL (0.083 %) solution for nebulization 2.5 mg inhalation ONCE Qty: 3 0RF montelukast [Singulair] 10 mg tablet 10 mg PO BEDTIME Qty: 90 1RF albuterol sulfate [ProAir HFA] 90 mcg/actuation HFA aerosol inhaler 1 inh inhalation Q4-6H PRN (Reason: shortness of breath or wheezing) Qty: 6.7 0RF cyclobenzaprine 10 mg tablet 10 mg PO BEDTIME Qty: 14 0RF
[2023-03-04 08:34] VITALS: BP 190/69; PULSE 71; RESP 16; O2SAT 100
[2023-03-04] MEDS: traMADoL HCL 50 MG TABLET PO (09:46)
== END 2023-03-04 09:57 | disposition home or self-care (01) ==
PROVIDERS: Emergency Provider Internal Medicine; PCP Internal Medicine
DX: S76.012A Strain of muscle, fascia and tendon of left hip, initial encounter (principal); W01.0XXA Fall on same level from slipping, tripping and stumbling without subsequent striking against object, initial encounter; M25.561 Pain in right knee; I10 Essential (primary) hypertension; Z86.718 Personal history of other venous thrombosis and embolism; Z79.01 Long term (current) use of anticoagulants; Z79.899 Other long term (current) drug therapy; Y93.9 Activity, unspecified; Y92.9 Unspecified place or not applicable; Y99.9 Unspecified external cause status
CPT/HCPCS: 73502; 73564; 99283

== ENCOUNTER 2023-04-10 09:18 | Outpatient (AMB) | payer MEDICARE, SELFPAY ==
--- NOTE | 2023-04-10 09:37 | AM.OFFWIN_ITS ---
Intake Vital Signs 04/10/23 09:43 BP 124/80 Blood Pressure Location Rt brachial Position Sitting Pulse 78 Pulse Source Pulse Oximeter Temp 98.6 F Temp Source Temporal Artery Scan Pulse Oximetry (%) 97 Oxygen Delivery Method Room Air Intake Visit Reasons: EST/short of breath/jesse Intake Note: Patient here for for possible bronchitis, she has a dry cough, hasnt been able to sleep laying down, she states she has mucus coming up but it is very hard to come up, wheezing/rattling in chest and ribs hurt from coughing so much. Patient Tobacco Use Status: Never used Tobacco Allergies ENVIRONMENTAL Allergy (Mild, Uncoded 04/10/23 09:49) CONGESTION Do you need a note to return to daycare/school/sports/work: No HPI HPI Comments History of Present Illness Details This is an 83-year-old female presenting to the office for a sick visit. Patient reports productive cough, chest congestion, and dyspnea on exertion x4 days. Patient states she has been utilizing others and nebulizers at home with minimal relief. She has also been utilizing [id number] cough and cold medications with minimal relief. She denies any fevers or chills. She denies any chest pain. She denies any abdominal pain or nausea/vomiting/diarrhea. COUNT INCLUDES THE [facility] Medical History Chronic anxiety Chronic leukopenia Deep vein thrombosis of right femoral vein GERD (gastroesophageal reflux disease) History of bronchitis Hypertension Osteoarthritis Surgical History History of cholecystectomy Family History Father Medical history unknown Mother Cancer Sister No problems noted. Son No problems noted. Daughter No problems noted. 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) Vision needs: No Review of Systems Const All systems reviewed & are unremarkable except as noted in HPI and below Denies chills and Denies fever(s) Eyes Reports no additional complaints ENT Reports no additional complaints Card Denies chest pain, Denies chest pain at rest, Denies chest pain with activity and Reports dyspnea on exertion Resp Reports dyspnea on exertion GI Denies abdominal pain, Denies diarrhea, Denies nausea and Denies vomiting Reports no additional complaints Musc Reports no additional complaints Neuro Reports no additional complaints Psych Reports no additional complaints Physical Exam Vital Signs: Last Vital Signs Temp 98.6 F 04/10/23 09:43 Pulse 78 04/10/23 09:43 BP 124/80 04/10/23 09:43 Pulse Ox 97 04/10/23 09:43 Oxygen Delivery Method Room Air 04/10/23 09:43 Const General: cooperative Orientation/consciousness: patient oriented x3 HEENT Head: Yes normal to inspection Ears: hearing grossly normal bilaterally General nose exam: Normal external nose present Face and sinus: Yes normal facial exam Resp Effort & Inspection: normal respiratory effort Auscultation: wheezes (Scattered expiratory wheezing, left greater than right) Cardio Rate: regular rate Rhythm: regular rhythm Heart sounds: no gallops, no murmurs and no rubs Peripheral pulses: Peripheral pulses 2+ throughout Skin General skin exam: no rashes or lesions noted Neuro General: patient oriented x3 Cranial nerves: Yes CN's II-XII intact bilaterally Cognition (Neuro): normal cognition Assessment & Plan Assessment & Plan (1) Bronchitis: Code(s): J40 - Bronchitis, not specified as acute or chronic Plan This is an 83-year-old female presenting with productive cough, dyspnea on exertion, and chest congestion x4 days. History and physical most consistent with acute bronchitis. Albuterol nebulizer x1 ordered but patient declined as she would like to go home to rest. Patient currently maintaining oxygen saturations on room air and does not appear to be in acute respiratory distress. Prescriptions sent for albuterol inhaler, p.o. azithromycin 500 mg x 1 followed by 250 mg daily x4 days, p.o. prednisone 40 mg daily x5 days, and p.o. benzonatate 100 mg 3 times daily as needed for cough. Recommended symptomatic management including rest, increased fluids, advil/tylenol for pain/fever, and over the counter throat lozenges/decongestants. Patient advised to follow up here or go to the emergency room for worsening/persistent symptoms. Patient advised to purchase a pulse oximeter to monitor oxygen saturations and to present to the emergency room her oxygen saturations less than 90%. Patient verbalizes her understanding and she is agreeable with the plan. Orders: Orders AMB Nebulizer Treatment Today J40 - Bronchitis, not specified as acute or chronic Medications: New albuterol sulfate 2.5 mg (3 mL) inhalation ONCE 3 mL 0RF J40 - Bronchitis, not specified as acute or chronic azithromycin For 250 mg dose pack: take 500 mg today (day 1), then 250 mg for 4 days (days 2-5) PO 6 tabs 0RF prednisone 40 mg (2 x 20 mg) PO DAILY 10 tabs 0RF benzonatate 100 mg PO TID PRN 10 caps 0RF cough albuterol sulfate 90 mcg/actuation 1 inh inhalation QID PRN 6.7 grams 0RF shortness of breath or wheezing Coding Level of Care Code Est Pt Level 3 (58519) Diagnoses Bronchitis J40
[2023-04-10 09:43] VITALS: BP 124/80; PULSE 78; TEMP 37; O2SAT 97
== END 2023-04-10 10:28 | disposition home or self-care (01) ==
PROVIDERS: PCP Internal Medicine; Visit Provider Physician Assistant Medical
DX: J40 Bronchitis, not specified as acute or chronic (principal)
CPT/HCPCS: 99213

== ENCOUNTER 2023-07-16 10:14 | Outpatient (AMB) | payer MEDICARE, SELFPAY ==
--- NOTE | 2023-07-16 10:15 | MHC.PC.OV ---
Vital Signs 07/16/23 10:17 Height 4 ft 11 in BP 132/70 Blood Pressure Location Lt brachial Position Sitting Pulse 74 Pulse Source Pulse Oximeter Pulse Oximetry (%) 96 Oxygen Delivery Method Room Air Intake Visit Reasons: BP Intake Note: Patient is here to follow up on HTN. Client Service Supervisor Required: No Overhead Distribution Engineer: Not Required per policy Accompanied by: Spouse Allergies ENVIRONMENTAL Allergy (Mild, Uncoded 07/16/23 15:23) CONGESTION Medication List - Last Reconciled 07/16/23 by Mustapha Andrew MD albuterol sulfate 90 mcg/actuation (ProAir HFA) 1 inh inhalation Q4-6H PRN amitriptyline 10 mg PO DAILY apixaban (Eliquis) 5 mg PO BID cholecalciferol (vitamin D3) 1,250 mcg PO QWEEK fluticasone propionate 50 mcg/actuation (Flonase Allergy Relief) 1 spray intranasal BID lisinopril 20 mg PO DAILY metoprolol succinate ER 25 mg PO DAILY montelukast (Singulair) 10 mg PO BEDTIME pantoprazole 40 mg PO DAILY walker As directed Tobacco use date assessed: 12/22/22 HPI BP HPI Details 83-year-old female presents to the office to discuss her chronic medical conditions. Patient is compliant with medications and reporting no side effects. Able to function and do all activities of daily living. Patient is under slight emotional stress as her is sick. She spends her time taking care of him. Continues to drive. [facility], LAT[facility] Medical History Chronic anxiety Chronic leukopenia Deep vein thrombosis of right femoral vein GERD (gastroesophageal reflux disease) History of bronchitis Hypertension Osteoarthritis Surgical History History of cholecystectomy Family History Father Medical history unknown Mother Cancer Sister No problems noted. Son No problems noted. Daughter No problems noted. 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 Easton Peña, Kim Smith, Irvin Arvizu and colleagues, with an educational robina from [employer]. Physical exam (Primary Care) Vital Signs: Last Vital Signs Pulse 74 07/16/23 10:17 BP 132/70 07/16/23 10:17 Pulse Ox 96 07/16/23 10:17 Oxygen Delivery Method Room Air 07/16/23 10:17 Tobacco/Smoking Status: Tobacco use Status Tobacco use date assessed 12/22/22 07/16/23 10:19 Patient Tobacco Use Status Never used Tobacco 07/16/23 10:19 e-Cigarette/Vaping Use Never Used 07/16/23 10:19 Thrive Assessment: Date of Thrive Assessment Date Thrive assessed 12/22/22 07/16/23 10:19 Const General: cooperative and healthy appearing Nutritional Appearance: well nourished Orientation/consciousness: patient oriented x3 Limitations: no limitations HENMT Head: Yes normal to inspection Eyes General: appearance normal, both eyes and all related structures Neck Neck: Yes normal visual inspection Chest Chest palpation & inspection: normal palpation of entire chest wall Resp Effort & Inspection: normal respiratory effort Neuro General: patient oriented x3 Assessment and Plan Assessment & Plan (1) Hypertension: Code(s): I10 - Essential (primary) hypertension Qualifiers: Hypertension type: essential hypertension Qualified Code(s): I10 - Essential (primary) hypertension Plan: Blood pressure is stable. Continue medications at same dosage. Importance of diet and exercise emphasized. Coding Level of Care Code Est Pt Level 4 (57395) Diagnoses Essential hypertension I10 Hypertension type: essential hypertension
[2023-07-16 10:17] VITALS: BP 132/70; PULSE 74; O2SAT 96
== END 2023-07-16 10:49 | disposition home or self-care (01) ==
PROVIDERS: PCP Internal Medicine; Visit Provider Internal Medicine
DX: I10 Essential (primary) hypertension (principal)
CPT/HCPCS: 99214

== ENCOUNTER 2023-08-15 06:21 | Emergency (ER) | payer MEDICARE, SELFPAY ==
--- NOTE | 2023-08-15 | ECG_ITS ---
Test Reason : cp Blood Pressure : / mmHG Vent. Rate : 076 BPM Atrial Rate : 076 BPM P-R Int : 164 ms QRS Dur : 080 ms QT Int : 360 ms P-R-T Axes : 040 002 026 degrees QTc Int : 405 ms Normal sinus rhythm Normal ECG When compared with ECG of 17-SEP-2022 13:04, No significant change was found Referred By: Generic ED Physician Electronically Signed By:SUSY BLACK MD
--- NOTE | ~2023-08-15 | XR_ITS ---
EXAMINATION: XR chest 1V CLINICAL INFORMATION: Chest pain COMPARISON: 11/15/2022 TECHNIQUE: XR chest 1V Tubes and lines: None Lungs and pleura: Mild patchy interstitial opacification right parahilar region, possible mild interstitial infiltrates pneumonia. Heart and mediastinum: The mediastinum is within normal limits.. Bones/soft tissue: Skeletal structures included are normal for patient's age. XR/XR chest 1V IMPRESSION: * Mild patchy interstitial opacification right parahilar region, possible mild interstitial infiltrates pneumonia. Attention to follow-up chest x-ray one month after completion of treatment recommended to ensure complete clearance and exclude underlying pathology. * No pleural effusion.
[2023-08-15 06:23] VITALS: BP 181/83; PULSE 100; RESP 18; TEMP 36.6; O2SAT 98; BMI 32.3
--- NOTE | 2023-08-15 06:42 | MHC.EDTECH ---
Patient brought from triage, EKG taken per order and signed by provider,Sars/Flu/RSV obtained and sent to lab.
[2023-08-15 07:22] LABS: Influenza A PCR NEGATIVE (Negative); Influenza B PCR NEGATIVE (Negative); Resp Syncy Virus RNA Qual PCR NEGATIVE (Negative); SARS COV2 PCR INHOUSE NEGATIVE (Negative)
--- NOTE | 2023-08-15 07:58 | ED.URI ---
HPI - URI/Sore Throat General Chief Complaint: General Medical Stated Complaint: Cough, Chest pressure, multiple complaints Time Seen by Provider: 08/15/23 07:28 Source: patient, family and old records reviewed Mode of arrival: ambulatory Limitations: no limitations History of Present Illness HPI Narrative: 83 yo female with PMH of DVT on eliquis, bronchitis, HTN, chronic runny nose has seen ENT on singulair, flonase, INH, she comes in with c/o runny nose keeping her up at night due to post nasal drip and cough x 4 days. No fevers. She cannot sleep. She has pain in L chest posterior due to the cough. She denies n/v/d to me. She has had this before and usually takes a steroid and zpak but ultimately the symptoms come back. MD elicited complaint: cough Pertinent past history: seasonal allergies Onset (ago): day(s) (4) Consistency: progressively worsening Severity: moderate Description of mucous: clear and watery Able to tolerate fluids by mouth: Yes Exacerbating factors: other (coughing) Relieving factors: nothing Context: other (chronic issue) Associated symptoms: rhinorrhea and other (left posterior rib pain) Treatments prior to arrival: other (her regimen for allergies) Related Data Previous Rx's Medication Instructions Recorded albuterol sulfate 90 mcg/actuation 1 inh inhalation Q4-6H PRN 11/11/21 aerosol inhaler (ProAir HFA) shortness of breath or wheezing #6.7 grams fluticasone propionate 50 1 spray intranasal BID #16 grams 08/31/22 mcg/actuation nasal spray,suspension (Flonase Allergy Relief) mikayla #1 ea 12/26/22 cholecalciferol (vitamin D3) 1,250 1,250 mcg PO QWEEK #12 caps 01/29/23 mcg (50,000 unit) capsule pantoprazole 40 mg tablet,delayed 40 mg PO DAILY #90 tabs 02/24/23 release amitriptyline 10 mg tablet 10 mg PO DAILY #90 tabs 04/21/23 montelukast 10 mg tablet 10 mg PO BEDTIME #90 tabs 05/14/23 (Singulair) lisinopril 20 mg tablet 20 mg PO DAILY #90 tabs 05/28/23 metoprolol succinate 25 mg 25 mg PO DAILY #90 tabs 07/21/23 tablet,extended release 24 hr apixaban 5 mg tablet (Eliquis) 5 mg PO BID #180 tabs 07/31/23 azithromycin 250 mg tablet See Rx Instructions PO .COMPLEX #6 08/15/23 tabs prednisone 20 mg tablet 40 mg (2 x 20 mg) PO DAILY 5 days 08/15/23 #10 tabs Allergies Allergy/AdvReac Type Severity Reaction Status Date / Time ENVIRONMENTAL Allergy Mild CONGESTION Uncoded 07/16/23 15:23 Review of Systems Review of Systems: Constitutional : No Fever, No Chills ENT/Mouth : No Hoarseness, No sore throat, pos Rhinorrhea Eyes: No Redness, No Discharge, No Vision Changes Cardiovascular : No Chest Pain, positive SOB, positive Dyspnea on Exertion, No Edema Respiratory : positive Cough, No Sputum, positive Wheezing, Gastrointestinal : No Nausea, No Vomiting, No Diarrhea, No abdominal Pain Genitourinary : No Dysuria, No Hematuria Musculoskeletal : No joint pain, No Myalgias Skin : No rash Neuro : No Weakness, No Numbness, No Headache Psych : No anxiety, depression Heme/Lymph: No Bruising, No Bleeding Endocrine : No Polyuria, No Polydipsia All other systems reviewed and are negative [facility] Past Medical History Attestation statement: The following information was validated with the patient. 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 Son No problems noted. Daughter No problems noted. 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 Oriented X3. No acute distress. Eyes: Pupils equal, round and reactive to light. ENT: Pharynx normal. Neck: Normal inspection. Neck supple. CVS: Normal heart rate and rhythm. Pulses normal. Respiratory: No respiratory distress. Breath sounds very faint end exp wheezes. Abdomen: Soft and non-tender. Skin: Skin warm and dry. Normal skin color. Normal skin turgor. Extremities: No lower extremity edema. No calf ttp Neuro: Oriented X 3. No motor deficit. No sensory deficit. Medications Administered Discontinued Medications Generic Name Dose Route Start Last Admin Trade Name Freq PRN Reason Stop Dose Admin Albuterol/Ipratropium 3 ml 08/15/23 07:54 08/15/23 08:11 Albuterol/Iprat 2.5/0.5mg 3 Ml Ampul.Neb INHALE 08/15/23 07:55 3 ml ONCE ONE Administration Medical Decision Making Medical Decision Making [facility] Narrative: 83 yo female with PMH of DVT on eliquis, bronchitis, HTN, chronic runny nose here with chronic runny nose no fevers now here with c/o runny nose, cough, L posterior rib pain with cough - I do not suspect PE or ACS given symptoms she has benign abdominal exam. She has had this multiple times in the past - will likely start on steroids and zpak refer to PCP for chronic bronchitis. Differential Diagnosis Differential Diagnoses: The differential diagnosis associated with the presentation includes bronchitis, viral panel, pneumonia Admission/Observation Consideration of admission/observation: Escalation of care including admission/observation considered not toxic, clear lungs can be DC home Lab Data [facility] Lab Attestation statement: I reviewed the patient's lab results. Labs: Lab Results 08/15/23 Range/Units 06:40 Influenza Type A (PCR) NEGATIVE (Negative) Influenza Type B (PCR) NEGATIVE (Negative) RSV RNA Qual (PCR) NEGATIVE (Negative) SARS-CoV-2 RNA (RT-PCR) NEGATIVE (Negative) Independent Interpretation I performed an independent interpretation of an: EKG and Plain X-Ray (possible R subtle opacity will start on antibiotics and steroids) Interpretation: Rate: 76 Rhythm: NSR [place]: left Normal P waves. Normal CHRISTIAN. Normal QRS complex. ST T wave : normal no ALINE qTC: normal prior studies: no acute ischemia The study has been interpreted contemporaneously by me. . Independent Historian Clinical information obtained from an independent historian. History obtained from or confirmed by: Spouse External Record Review External record reviewed: Inpatient record Prescription Management I considered prescription management with: Antibiotic and Other Discharge Plan Discharge Clinical Impression: Bronchitis Patient Disposition: Home, Self-Care Instructions: Chronic Bronchitis (ED) Additional Instructions: take all of your medications as well. Return for worsening symptoms, difficulty breathing, no improvement or any other concerns. you can also use saline nasal washes to improve your symptoms. take a probiotic while on antibiotic. on chest xray possible very early start of pneumonia right lung - would repeat a chest xray in 4 weeks with your doctor. Prescriptions: New azithromycin 250 mg tablet See Rx Instructions .ROUTE .COMPLEX Qty: 6 0RF Rx Instructions: For 250 mg dose pack: take 500 mg today (day 1), then 250 mg for 4 days (days 2-5) prednisone 20 mg tablet 40 mg PO DAILY 5 Days Qty: 10 0RF No Action (DME) mikayla [facility] [place] See Rx Instructions .Route Qty: 1 0RF Rx Instructions: As directed cholecalciferol (vitamin D3) 1,250 mcg (50,000 unit) capsule 1,250 mcg PO QWEEK Qty: 12 1RF pantoprazole 40 mg tablet,delayed release (DR/EC) 40 mg PO DAILY Qty: 90 1RF amitriptyline 10 mg tablet 10 mg PO DAILY Qty: 90 0RF montelukast [Singulair] 10 mg tablet 10 mg PO BEDTIME Qty: 90 1RF lisinopril 20 mg tablet 20 mg PO DAILY Qty: 90 1RF metoprolol succinate 25 mg tablet extended release 24 hr 25 mg PO DAILY Qty: 90 0RF Eliquis 5 mg tablet 5 mg PO BID Qty: 180 0RF fluticasone propionate [Flonase Allergy Relief] 50 mcg/actuation spray,suspension 1 spray intranasal BID Qty: 16 0RF Rx Instructions: administer into each nostril ipratropium-albuterol 0.5 mg-3 mg(2.5 mg base)/3 mL solution for nebulization 3 ml inhalation ONCE Qty: 3 0RF albuterol sulfate [ProAir HFA] 90 mcg/actuation HFA aerosol inhaler 1 inh inhalation Q4-6H PRN (Reason: shortness of breath or wheezing) Qty: 6.7 0RF
[2023-08-15] MEDS: Albuterol/Iprat 2.5/0.5MG 3 ML AMPUL.NEB INHALE (08:11)
[2023-08-15 08:13] VITALS: PULSE 100; RESP 16; O2SAT 98
== END 2023-08-15 09:49 | disposition home or self-care (01) ==
PROVIDERS: Emergency Provider Emergency Medicine; PCP Internal Medicine
DX: J40 Bronchitis, not specified as acute or chronic (principal); I10 Essential (primary) hypertension; Z86.718 Personal history of other venous thrombosis and embolism; Z79.01 Long term (current) use of anticoagulants; Z20.822 Contact with and (suspected) exposure to COVID-19; Z20.828 Contact with and (suspected) exposure to other viral communicable diseases
CPT/HCPCS: 0241U; 71045; 93005; 94640; 99284

== ENCOUNTER 2023-09-25 14:08 | Outpatient (AMB) | payer MEDICARE, SELFPAY ==
--- NOTE | 2023-09-25 15:11 | MHC.OFFWIV ---
Intake Vital Signs 09/25/23 15:13 Height 4 ft 11 in BP 136/80 Blood Pressure Location Rt brachial Position Sitting Pulse 83 Pulse Source Pulse Oximeter Temp 97.9 F Temp Source Oral Pulse Oximetry (%) 97 Oxygen Delivery Method Room Air Intake Visit Reasons: EP ? Bronchitis Intake Note: pt is here for c.o possible bronchitis, cough with chest congestion Patient Tobacco Use Status: Never used Tobacco Allergies ENVIRONMENTAL Allergy (Mild, Uncoded 09/25/23 15:13) CONGESTION Do you need a note to return to daycare/school/sports/work: No HPI HPI Comments History of Present Illness Details Patient is an 83yo F who present with for cough He was sick x 2 weeks She started with cough x 5 days She is prone to bronchitis Has been using mucinex and symbicort with little relief No fever or chills + fatigue + mucus Minimal congestion No ST or ear pain No CP but + back ache with coughing and deep breath PFSH Medical History (Updated 09/25/23 @ 15:51 by Arleth Castro PA-C) Cough 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 Son No problems noted. Daughter No problems noted. 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) Vision needs: No Review of Systems Const Reports body aches, Denies chills, Reports fatigue and Denies fever(s) Eyes Denies blurry vision ENT Denies otalgia, Reports nasal congestion, Reports nasal discharge and Denies sore throat Card Denies chest pain, Denies rapid heart rate and Reports dyspnea Resp Reports chest congestion, Reports cough, Reports excessive phlegm production, Reports pain with cough and Reports dyspnea GI Denies abdominal pain Endo Reports fatigue Physical Exam Vital Signs: Last Vital Signs Temp 97.9 F 09/25/23 15:13 Pulse 83 09/25/23 15:13 BP 136/80 09/25/23 15:13 Pulse Ox 97 09/25/23 15:13 Oxygen Delivery Method Room Air 09/25/23 15:13 General: Non-toxic, NAD. Speaking full sentences. Skin: Warm dry throughout Eye: EOMI HENT: Airway patent. Uvula midline. No pharyngeal erythema or edema. No SLASH TRIMMER. Bilateral canals clear. TM non-erythematous, non-bulging. No TM perforation or hemotympanum noted. Respiratory: +rhonchi throughout with upper airway wheeze Cardiac: RRR. No murmur MSK: Full ROM extremities. Neurology: A/O No aphasia or facial droop. Gait without abnormality Psych: Good mood and affect Assessment & Plan Assessment & Plan (1) Cough: Code(s): R05 - Cough Qualifiers: Cough type: chronic Qualified Code(s): R05.3 - Chronic cough Plan: Patient seen and evaluated. Chest xray ordered: i vieed as negative Based on examination, will tx with Prednisone and Azithromycin. 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 F/U with PCP and go to ED with any worsening SOB, CP of symptoms. Patient gave verbal understanding and had no additional questions or concerns at time of discharge All questions answered Orders: Orders XR chest 2V Today R05 - Cough Medications: New azithromycin start on day 2 of therapy 250 mg PO DAILY 6 days 6 tabs 0RF albuterol sulfate 90 mcg/actuation 1 inh inhalation QID PRN 6.7 grams 0RF shortness of breath or wheezing R05 - Cough prednisone 40 mg (2 x 20 mg) PO DAILY 4 days 8 tabs 0RF R05 - Cough Coding Level of Care Code Est Pt Level 3 (00892) Diagnoses Cough R05.3 Cough type: chronic
[2023-09-25 15:13] VITALS: BP 136/80; PULSE 83; TEMP 36.6; O2SAT 97
== END 2023-09-25 16:36 | disposition home or self-care (01) ==
PROVIDERS: PCP Internal Medicine; Visit Provider Physician Assistant
DX: R05.3 Chronic cough (principal)
CPT/HCPCS: 99213

== ENCOUNTER 2023-09-25 15:52 | Outpatient (REF) | payer MEDICARE, SELFPAY ==
--- NOTE | ~2023-09-25 | XR_ITS ---
EXAMINATION: XR CHEST CLINICAL INFORMATION: Cough. COMPARISON: None available. TECHNIQUE: 2 views of the chest were obtained. FINDINGS: No significant abnormality is noted involving the heart, lungs, mediastinum, bony thorax or soft tissues. XR/XR chest 2V IMPRESSION: Unremarkable chest examination.
== END 2023-09-25 15:53 | disposition home or self-care (01) ==
LOC: HO.HMGCX 15:52
PROVIDERS: Visit Provider Physician Assistant
DX: R05.9 Cough, unspecified (principal)
CPT/HCPCS: 71046

== ENCOUNTER 2023-10-15 10:11 | Outpatient (AMB) | payer MEDICARE, SELFPAY ==
--- NOTE | 2023-10-15 10:24 | A.OFFPC_ITS ---
Vital Signs 10/15/23 10:26 Height 4 ft 11 in Weight 159 lb 8 oz BMI 32.2 BP 110/70 Blood Pressure Location Lt brachial Position Sitting Pulse 70 Pulse Source Pulse Oximeter Pulse Oximetry (%) 99 Oxygen Delivery Method Room Air Intake Visit Reasons: 3 month f/u Intake Note: Patient is here to follow up on HTN. Sorter Pricer Required: No Seeing Eye Dog Teacher: Present Accompanied by: Spouse Allergies ENVIRONMENTAL Allergy (Mild, Uncoded 10/15/23 10:25) CONGESTION Tobacco use date assessed: 10/15/23 Fall risk assessment: No Falls in past year Last assessed Fall Risk: 10/15/23 Dental Screening Dental Screen Date: 10/15/23 Did you have a dental visit in the last 12 months?: Yes Did you have a dental problem in the last 6 months where you did not have access to dental care?: No Was dental information given to patient?: Patient has dentist HPI 3 month f/u HPI Details 83-year-old female presents to [facility] to discuss her chronic medical conditions. Patient continues to report episodes of cough. Mostly the symptoms are in the morning, paroxysmal in nature brings out large amounts of sputum. Every 6 weeks the cough turns into an infection and symptoms resolved with prednisone and inhalers. She has had 3-4 upper respiratory tract infections in the past 6 months. Compliant with other medications. Reporting no side effects. Able to function and do all activities of daily living. 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 Son No problems noted. Daughter No problems noted. 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) Vision needs: No Questionnaire PHQ-9 Over the last 2 weeks, how often have you been bothered by any of the following problems? 1. Little interest or pleasure in doing things: not at all 2. Feeling down, depressed, or hopeless: not at all 3. Trouble falling or staying asleep, or sleeping too much: not at all 4. Feeling tired or having little energy: not at all 5. Poor appetite or overeating: not at all 6. Feeling bad about yourself - or that you are a failure or have let yourself or your family down: not at all 7. Trouble concentrating on things, such as reading the newspaper or watching television: not at all 8. Moving or speaking so slowly that other people could have noticed. Or the opposite - being so fidgety or restless that you have been moving around a lot more than usual: not at all 9. Thoughts that you would be better off or of hurting yourself in some way: not at all Total score: 0 Depression Screening Interpretation: Negative Depression Screening Done: Yes Source: Developed by Drs. Easton Peña, Kim Smith, Irvin Arvizu and colleagues, with an educational robina from [employer]. Thrive Questionnaire Date Thrive assessed: 10/15/23 I am a: Patient What is your living situation today?: I have a steady place to live Within the past 12 months, did the food you bought not last and you didn't have the money to get more?: Never true Within the past 12 months, did you worry whether your food would run out before you got money to buy more?: Never true Do you have trouble paying for medicines?: No Do you have trouble getting transportation to medical appointments?: No Do you have trouble paying your heating and electricity bill?: No Do you have trouble taking care of your child, family member or friend?: No Do you have trouble with day-to-day activities such as bathing, preparing meals, shopping, managing finances, etc.?: No Are you currently unemployed and looking for a job?: No Are you interested in more education?: No Currently or been in a relationship where the following occur: no concerns reported AUDIT C Alcohol Use Questionnaire (AUDIT-C) 1. How often do you have a drink containing alcohol?: Never Total Score: 0 CHARMAINE-7 AMB Questionnaire CHARMAINE-7 Date CHARMAINE - 7 assessed: 10/15/23 Feeling nervous, anxious, or on edge: 0 = Not at all Not being able to stop or control worryin = Not at all Worrying too much about different things: 0 = Not at all Trouble relaxin = Not at all Being so restless that it is hard to sit still: 0 = Not at all Becoming easily annoyed or irritable: 0 = Not at all Feeling afraid as if something awful might happen: 0 = Not at all Total CHARMAINE-7 score (0-4 normal; 5-9 mild; 10-14 moderate; 15-21 severe): 0 Source: Developed by Drs. Easton Peña, Kim Smith, Irvin Arvizu and colleagues, with an educational robina from [employer]. Physical exam (Primary Care) Vital Signs: Last Vital Signs Pulse 70 10/15/23 10:26 BP 110/70 10/15/23 10:26 Pulse Ox 99 10/15/23 10:26 Oxygen Delivery Method Room Air 10/15/23 10:26 BMI result Body Mass Index 32.2 Tobacco/Smoking Status: Tobacco use Status Tobacco use date assessed 10/15/23 10/15/23 10:29 Patient Tobacco Use Status Never used Tobacco 10/15/23 10:29 e-Cigarette/Vaping Use Never Used 10/15/23 10:29 PHQ-9: PHQ-9 Score PHQ-9: Total score 0 10/15/23 10:29 Depression Screening Interpretation: Negative Thrive Assessment: Date of Thrive Assessment Date Thrive assessed 10/15/23 10/15/23 10:29 Currently or been in a relationship where the following occur: no concerns reported Const General: cooperative and healthy appearing Nutritional Appearance: well nourished Orientation/consciousness: patient oriented x3 Limitations: no limitations HENMT Head: Yes normal to inspection Eyes General: appearance normal, both eyes and all related structures Neck Neck: Yes normal visual inspection Chest Chest palpation & inspection: normal palpation of entire chest wall Resp Effort & Inspection: normal respiratory effort Neuro General: patient oriented x3 Assessment and Plan Assessment & Plan (1) 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 Discuss with Dr Linda in the next ov on the duration of anticoagulation. (2) Hypertension: Code(s): I10 - Essential (primary) hypertension Qualifiers: Hypertension type: essential hypertension Qualified Code(s): I10 - Essential (primary) hypertension Plan: BP is in range. Medications refilled. Continue medications at same dosage. 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
[2023-10-15 10:26] VITALS: BP 110/70; PULSE 70; O2SAT 99; BMI 32.2
== END 2023-10-15 11:24 | disposition home or self-care (01) ==
PROVIDERS: PCP Internal Medicine; Visit Provider Internal Medicine
DX: I82.411 Acute embolism and thrombosis of right femoral vein (principal); I10 Essential (primary) hypertension; R05.3 Chronic cough
CPT/HCPCS: 99214

== ENCOUNTER 2023-10-20 15:07 | Outpatient (AMB) | payer MEDICARE, SELFPAY ==
--- NOTE | 2023-10-20 15:12 | A.OFFVIS_ITS ---
Intake Vital Signs 10/20/23 15:13 Height 4 ft 11 in Weight 158 lb 0.7 oz BMI 31.9 BP 140/68 H Blood Pressure Location Lt brachial Position Sitting Pulse 62 Pulse Source Pulse Oximeter Pulse Oximetry (%) 100 Oxygen Delivery Method Room Air Intake Visit Reasons: Cough Intake Note: pt is here as a new patient, she has been dealing with this for about 2 years, she is the phlegm reddy, wakes up coughing for at least an hour to get it all out. reoccurring issues with the chest, usually ends up in the hospital at least once a year. Told it could be bronchitis. Allergies ENVIRONMENTAL Allergy (Mild, Uncoded 10/20/23 16:38) CONGESTION Medication List - Last Reconciled 10/20/23 by Brian Reyna MD albuterol sulfate 90 mcg/actuation 1 inh inhalation QID PRN amitriptyline 10 mg PO DAILY apixaban (Eliquis) 5 mg PO BID cholecalciferol (vitamin D3) 1,250 mcg PO QWEEK fluticasone furoate 100 mcg/actuation (Arnuity Ellipta) 1 inh inhalation DAILY 30 days fluticasone propionate 50 mcg/actuation (Flonase Allergy Relief) 1 spray intranasal BID lisinopril 20 mg PO DAILY losartan 50 mg PO DAILY 30 days metoprolol succinate ER 25 mg PO DAILY montelukast (Singulair) 10 mg PO BEDTIME pantoprazole 40 mg PO DAILY walker As directed Do you need a note to return to daycare/school/sports/work: No HPI Cough HPI Details Elisabeth is 83 years old very pleasant female, Comes for pulmonary evaluation which chief complaint of cough going on for 2 years. She does have intermittent nasal congestion with postnasal drip. She she is nonsmoker. Lately her cough has been worse in the past few months. She gets frequent bouts of cough and then feels congested. In the chest but not able to bring much phlegm She has been treated with courses of prednisone and antibiotics. One interesting statement is that each time she takes short course of prednisone she feels better but then the symptoms come back. She has been treated for nasal allergies, with Flonase, and lately also on montelukast but it has not helped at all. She has been seen in the urgent care clinic as well as in the emergency room a few times with acute episodes of cough and nasal congestion. She has been told that she may be suffering from environmental allergies. She does have history of GERD symptoms, but controlled with use of pantoprazole 40 mg daily. She sleeps with head of the bed propped up. She is being treated for hypertension with lisinopril 20 mg daily for many years., that may be contributing to her cough. She has mild chronic leukopenia, and is being followed by Hematology. 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 Son No problems noted. Daughter No problems noted. 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) Vision needs: No Review of Systems Const All systems reviewed & are unremarkable except as noted in HPI and below Eyes Reports no additional complaints ENT Reports nasal congestion and Reports nasal discharge Card Denies chest pain, Denies irregular heart rhythm and Denies leg edema Resp Reports as per HPI GI Reports heartburn (Controlled with medicine) Reports no additional complaints Musc Reports no additional complaints Skin/Breast Reports system reviewed and no additional complaints, except as documented Neuro Reports no additional complaints Psych Reports anxiety Endo Reports no additional complaints Ty/Lymph Details: Mild chronic leukopenia Aller/Immun Details: Patient has, no specific allergy to any medications Physical Exam Vital Signs: Last Vital Signs Pulse 62 10/20/23 15:13 BP 140/68 H 10/20/23 15:13 Pulse Ox 100 10/20/23 15:13 Oxygen Delivery Method Room Air 10/20/23 15:13 BMI result Body Mass Index 31.9 Const General: healthy appearing, comfortable (Except for mild intermittent cough), no acute distress, alert and awake Orientation/consciousness: patient oriented x3 HEENT Head: Yes normal to inspection General nose exam: No nasal polyps present and No nasal discharge present Face and sinus: Yes sinuses nontender Mouth: oropharynx normal Throat: Yes posterior oropharynx normal Eyes General: appearance normal, both eyes and all related structures Neck Neck: Yes normal visual inspection, Yes no lymphadenopathy, Yes trachea midline and Yes no JVD Thyroid: Thyroid normal Chest Chest palpation & inspection: normal inspection of the chest, normal palpation of entire chest wall and no tenderness Resp Other: Percussion note is resonant She has equal breath sounds on both sides. She has harsh inspiratory sounds over the lower lobes, no definite wheezes or crepitations. Cardio Palpation: normal PMI Rate: regular rate Rhythm: regular rhythm Heart sounds: no gallops and no murmurs Peripheral pulses: Peripheral pulses 2+ throughout GI Palpation (GI): Soft to palpation, nontender, No hepatosplenomegaly present and no masses Auscultation: normal bowel sounds Back/Spine/Pelvis Thoracic/Lumbar Spine: thoracic and lumbar spine normal to inspection Skin General skin exam: no rashes or lesions noted Neuro General: patient oriented x3 and no focal motor deficits Cranial nerves: Yes CN's II-XII intact bilaterally Extrem General: Yes normal to inspection, Yes no clubbing, cyanosis or edema and Yes no calf tenderness Psych Appearance: grossly normal and well kempt Speech and movement: Normal speech and movement present Results Reviewed Results Reviewed: Chest x-ray showed questionable increased bronchovascular markings in perihilar areas, raising possibility of viral infection. However chest x-ray on 09/25 was reported to be normal and clear Assessment & Plan Assessment & Plan (1) Allergic rhinitis: Comment: Patient has longstanding history of allergic rhinitis, it has been mild and intermittent. Code(s): J30.9 - Allergic rhinitis, unspecified Plan: Continue using Flonase 1 spray each nostril daily And may use the loratadine 10 mg p.r.n.. (2) Asthma: Comment: I think her cough is an asthma variant. This is due to chronic environmental allergies, Code(s): J45.909 - Unspecified asthma, uncomplicated Plan: Patient would have complete pulmonary function test, to evaluate for asthma. (3) Cough: Comment: Chronic cough, most likely allergic, Secondary to chronic, allergic rhinitis , asthma variant, , and may also be contributed by taking lisinopril for hypertension Code(s): R05 - Cough Qualifiers: Cough type: chronic Qualified Code(s): R05.3 - Chronic cough Plan: Will stop lisinopril, and substitute it with Losartan 50 mg daily May use albuterol HFA 2 puffs Q 6 hours p.r.n. Also started on, Arnuity -100 1 inhalation daily PULMONARY FUNCTION TEST IS ORDERED. HAD DETAILED DISCUSSION WITH THE PATIENT AND HER . Plan Will re-evaluate the patient after pulmonary function test is done. Orders: Orders PFT pulmonary function test Today J30.9 - Allergic rhinitis, unspecified, J45.909 - Unspecified asthma, uncomplicated, R05 - Cough Medications: New losartan 50 mg PO DAILY 30 days 30 tabs 3RF hypertension fluticasone furoate 100 mcg/actuation (Arnuity Ellipta) 1 inh inhalation DAILY 30 days 30 ea 3RF Asthma Coding Level of Care Code New Pt Level 4 (36324) Diagnoses Allergic rhinitis J30.9 Asthma J45.909 Cough R05.3 Cough type: chronic
[2023-10-20 15:13] VITALS: BP 140/68; PULSE 62; O2SAT 100; BMI 31.9
== END 2023-10-20 15:59 | disposition home or self-care (01) ==
PROVIDERS: PCP Internal Medicine; Visit Provider Internal Medicine
DX: J30.9 Allergic rhinitis, unspecified (principal); J45.909 Unspecified asthma, uncomplicated; R05.3 Chronic cough
CPT/HCPCS: 99204

== ENCOUNTER → 2023-10-20 15:07 | Outpatient (BNVA) | payer MEDICARE, SELFPAY | PROVIDERS: PCP Internal Medicine; Visit Provider Internal Medicine | DX: J45.909 Unspecified asthma, uncomplicated (principal); R05.3 Chronic cough | CPT/HCPCS: 99202 ==

== ENCOUNTER 2023-10-31 14:00 | Outpatient (REF) | payer MEDICARE, SELFPAY ==
--- NOTE | 2023-10-31 14:32 | PFT_ITS ---
Indication: Asthma Spirometry [FEV1 to FVC 93% post bronchodilators and 34% pre bronchodilators; FEV1 1.84L; FVC 1.9 L. There was a significant response to bronchodilators noted. Maximum voluntary ventilation 118% predicted] Lung Volumes [Total lung capacity 74% predicted] Diffusion Capacity [DLCO could not be achieved due to the fact the patient could not perform the maneuvers necessary.] Comparisons [None] Interpretation [There is a reversible obstructive ventilatory defect consistent with the patient's history of asthma. Significant response to bronchodilators noted. Normal maximum voluntary ventilation. Lung volumes also demonstrate a restrictive ventilatory defect. Need to consider underlying parenchymal lung conditions. Diffusing capacity could not be achieved. Clinical correlation warranted.] MTDD
== END 2023-10-31 14:01 | disposition home or self-care (01) ==
LOC: HO.RESP 14:00
PROVIDERS: PCP Internal Medicine; Visit Provider Internal Medicine
DX: J45.909 Unspecified asthma, uncomplicated (principal)
CPT/HCPCS: 94010; 94640; 94727; 94729

== ENCOUNTER → 2023-10-31 14:32 | Outpatient (BNV) | payer MEDICARE, SELFPAY | PROVIDERS: PCP Internal Medicine; Visit Provider Hospitalist | DX: J45.909 Unspecified asthma, uncomplicated (principal) | CPT/HCPCS: 94060; 94727 ==

== ENCOUNTER 2023-11-18 14:09 | Outpatient (AMB) | payer MEDICARE, SELFPAY ==
[2023-11-18 14:35] VITALS: BP 120/70; PULSE 68; O2SAT 99; BMI 31.9
--- NOTE | 2023-11-18 14:35 | A.OFFVIS_ITS ---
Intake Vital Signs 11/18/23 14:35 Height 4 ft 11 in Weight 158 lb 0.73 oz BMI 31.9 BP 120/70 Blood Pressure Location Lt brachial Position Sitting Pulse 68 Pulse Source Pulse Oximeter Pulse Oximetry (%) 99 Oxygen Delivery Method Room Air Intake Visit Reasons: Cough Intake Note: pt is here for follow up and states she is still coughing in am. Concrete Carpenter Required: No Allergies ENVIRONMENTAL Allergy (Mild, Uncoded 11/18/23 15:20) CONGESTION Medication List - Last Reconciled 11/18/23 by Brian Reyna MD albuterol sulfate 90 mcg/actuation 1 inh inhalation QID PRN amitriptyline 10 mg PO DAILY apixaban (Eliquis) 5 mg PO BID cholecalciferol (vitamin D3) 1,250 mcg PO QWEEK fluticasone furoate 100 mcg/actuation (Arnuity Ellipta) 1 inh inhalation DAILY 30 days fluticasone propionate 50 mcg/actuation (Flonase Allergy Relief) 1 spray intranasal BID losartan 50 mg PO DAILY 30 days metoprolol succinate ER 25 mg PO DAILY pantoprazole 40 mg PO DAILY walker As directed Do you need a note to return to daycare/school/sports/work: No HPI Cough HPI Details VITOR IS 83 YEARS OLD FEMALE. SHE WAS SEEN FOR ONGOING COUGH, LISINOPRIL CHANGED TO LOSARTAN WHICH IS CONTROLLING HER BLOOD PRESSURE WELL. PULMONARY FUNCTION TEST DID SHOW REVERSIBLE BRONCHOSPASM, BUT HER VENTILATORY EFFORTS WERE NOT VERY RELIABLE. ANYWAY SHE HAS BEEN STARTED ON ARNUITY( FLUTICASONE ) 100 MCG 1 INHALATION B.I.D.. SHE COMES, TODAY VERY HAPPY AND JOLLY AND ADMITS THAT HER COUGH IS MUCH BETTER, EXCEPT THAT WHEN SHE WAKES UP IN THE MORNING SHE STILL HAS BOUTS OF COUGH WITH SOME MUCUS WHICH SHE CAN EXPECTORATES EASILY. 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 Son No problems noted. Daughter No problems noted. 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) Vision needs: No Review of Systems Const All systems reviewed & are unremarkable except as noted in HPI and below Eyes Reports no additional complaints ENT Reports nasal congestion and Reports nasal discharge Card Denies chest pain, Denies irregular heart rhythm and Denies leg edema Resp Reports as per HPI GI Reports heartburn (Controlled with medicine) Reports no additional complaints Musc Reports no additional complaints Skin/Breast Reports system reviewed and no additional complaints, except as documented Neuro Reports no additional complaints Psych Reports anxiety Endo Reports no additional complaints Ty/Lymph Details: Mild chronic leukopenia Aller/Immun Details: Patient has, no specific allergy to any medications Physical Exam Vital Signs: Last Vital Signs Pulse 68 11/18/23 14:35 BP 120/70 11/18/23 14:35 Pulse Ox 99 11/18/23 14:35 Oxygen Delivery Method Room Air 11/18/23 14:35 BMI result Body Mass Index 31.9 Const General: healthy appearing, comfortable (Except for mild intermittent cough), no acute distress, alert and awake Orientation/consciousness: patient oriented x3 HEENT Head: Yes normal to inspection General nose exam: No nasal polyps present and No nasal discharge present Face and sinus: Yes sinuses nontender Mouth: oropharynx normal Throat: Yes posterior oropharynx normal Eyes General: appearance normal, both eyes and all related structures Neck Neck: Yes normal visual inspection, Yes no lymphadenopathy, Yes trachea midline and Yes no JVD Thyroid: Thyroid normal Chest Chest palpation & inspection: normal inspection of the chest, normal palpation of entire chest wall and no tenderness Resp Other: Percussion note is resonant She has equal breath sounds on both sides. I did not hear any wheezes or crepitations today. Cardio Palpation: normal PMI Rate: regular rate Rhythm: regular rhythm Heart sounds: no gallops and no murmurs Peripheral pulses: Peripheral pulses 2+ throughout GI Palpation (GI): Soft to palpation, nontender, No hepatosplenomegaly present and no masses Auscultation: normal bowel sounds Back/Spine/Pelvis Thoracic/Lumbar Spine: thoracic and lumbar spine normal to inspection Skin General skin exam: no rashes or lesions noted Neuro General: patient oriented x3 and no focal motor deficits Cranial nerves: Yes CN's II-XII intact bilaterally Extrem General: Yes normal to inspection, Yes no clubbing, cyanosis or edema and Yes no calf tenderness Psych Appearance: grossly normal and well kempt Speech and movement: Normal speech and movement present Results Reviewed Results Reviewed: PULMONARY FUNCTION TEST PERFORMED HERE IN THE OFFICE ON 10/31/2023. HER EFFORTS WERE POOR AND INTERRUPTED BECAUSE OF COUGH. THE BASELINE STUDY DID SHOW MODERATELY SEVERE OBSTRUCTIVE AIRWAY DISORDER WITH EXCELLENT RESPONSE TO BRONCHODILATOR THERAPY. 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 This is due to chronic environmental allergies, The cough frequency and intensity is definitely much improved. She gets cough only in the morning hours. Code(s): J45.909 - Unspecified asthma, uncomplicated Plan: Advised to continue Arnuity-100 1 inhalation b.i.d.. Use albuterol HFA Q 6 hours only p.r.n. if the cough is persistent (2) Allergic rhinitis: Comment: Patient has longstanding history of allergic rhinitis, it has been mild and intermittent. Code(s): J30.9 - Allergic rhinitis, unspecified Plan: Continue FLONASE -50 2 spray each nostril daily. (3) Cough: Comment: Chronic cough, most likely allergic, Secondary to chronic, allergic rhinitis , asthma variant, , and may also be contributed by taking lisinopril for hypertension Code(s): R05 - Cough Qualifiers: Cough type: chronic Qualified Code(s): R05.3 - Chronic cough Plan: With the adjustment of medication from lisinopril to losartan, and with the use of Arnuity 1 inhalation b.i.d., cough is much better. Patient advised to continue the same meds. Will recheck her in 3 months. Will repeat spirometry on the next visit. If cough is much improved then she can stop Arnuity and use only as needed . Coding Level of Care Code Est Pt Level 3 (44767) Diagnoses Asthma J45.909 Allergic rhinitis J30.9 Cough R05.3 Cough type: chronic
== END 2023-11-18 15:24 | disposition home or self-care (01) ==
PROVIDERS: PCP Internal Medicine; Visit Provider Internal Medicine
DX: J45.909 Unspecified asthma, uncomplicated (principal); J30.9 Allergic rhinitis, unspecified; R05.3 Chronic cough
CPT/HCPCS: 99213

== ENCOUNTER → 2023-11-18 14:09 | Outpatient (BNVA) | payer MEDICARE, SELFPAY | PROVIDERS: PCP Internal Medicine; Visit Provider Internal Medicine | DX: J45.909 Unspecified asthma, uncomplicated (principal); R05.3 Chronic cough | CPT/HCPCS: 99212 ==

== ENCOUNTER 2023-12-15 10:41 | Outpatient (REF) | payer MEDICARE, SELFPAY ==
--- NOTE | ~2023-12-15 | XR_ITS ---
EXAMINATION: XR CHEST CLINICAL INFORMATION: Bronchitis COMPARISON: Chest x-ray on 09/25/2023 TECHNIQUE: 2 views of the chest were obtained. FINDINGS: vascularity. LUNGS: Bilateral hilar and peribronchial thickening is seen, more prominent in the right lung. No focal airspace disease could be seen. No pneumothorax is seen. BONES: Bony skeleton is intact. There is exaggerated thoracic kyphosis. XR/XR chest 2V IMPRESSION: Unchanged bilateral hilar peribronchial thickening, compatible with chronic bronchitis.
[2023-12-15 12:45] LABS: Eosinophils Percent Auto 0.2 % (0-4); Hematocrit 38.3 % (37.0-47.0); Hemoglobin 12.4 g/dl (12.0-16.0); Imm Gran Abs Auto 0.07 X10*3/uL (0.00-0.03); Imm Gran Pct Auto 1.7 % (0.0-0.4); Lymphocytes Percent Auto 50.5 % (20-40); MANUAL DIFF FLAG SCAN; Mean Corpuscular HGB Conc 32.4 g/dl (31.0-35.0); Mean Corpuscular Hemoglobin 29.2 pg (27.0-33.0); Mean Corpuscular Volume 90.3 fL (80.0-98.0); Mean Platelet Volume 11.7 fL (9.4-12.3); Monocytes Absolute Auto 1.1 X10*3/uL (0.1-1.2); Monocytes Percent Auto 26.7 % (2-11); Neutrophils Absolute Auto 0.8 x10*3/uL (2.0-8.3); Neutrophils Percent Auto 20.9 % (45-73); Platelet Count 198 X10*3/uL (160-400); Red Blood Count 4.24 X10*6/uL (4.20-5.50); Red Cell Distribution Width 13.8 % (11.0-16.0); SCAN SMEAR FLAG 1
[2023-12-15 13:31] LABS: SLIDE REVIEW VERIFIED
[2023-12-16 22:28] LABS: CRP High Sensitivity 4.6 mg/L
== END 2023-12-15 10:42 | disposition home or self-care (01) ==
LOC: HO.XRAY 10:41
PROVIDERS: PCP Internal Medicine; Visit Provider Internal Medicine
DX: J45.909 Unspecified asthma, uncomplicated (principal); R05.9 Cough, unspecified
CPT/HCPCS: 36415; 71046; 85025; 86141; 99212

== ENCOUNTER 2023-12-15 10:41 | Outpatient (AMB) | payer MEDICARE, SELFPAY ==
--- NOTE | 2023-12-15 10:45 | A.OFFVIS_ITS ---
Intake Vital Signs 12/15/23 10:46 Height 4 ft 11 in BP 120/60 Blood Pressure Location Lt brachial Position Sitting Pulse 83 Pulse Source Pulse Oximeter Pulse Oximetry (%) 99 Oxygen Delivery Method Room Air Intake Visit Reasons: Cough Intake Note: pt is here for a sick visit for a cough that has a lot of phlegm. Chest is killing her and feels like it it burning. Coughing all night so much phlegm, just producing this all the time. Neckties Painter Required: No Allergies ENVIRONMENTAL Allergy (Mild, Uncoded 12/15/23 11:10) CONGESTION Medication List - Last Reconciled 12/15/23 by Brian Reyna MD albuterol sulfate 90 mcg/actuation 2 puffs inhalation Q4-6H PRN 30 days amitriptyline 10 mg PO DAILY apixaban (Eliquis) 2.5 mg PO BID azithromycin For 250 mg dose pack: take 500 mg today (day 1), then 250 mg for 4 days (days 2-5) PO cholecalciferol (vitamin D3) 1,250 mcg PO QWEEK fluticasone furoate 100 mcg/actuation (Arnuity Ellipta) 1 inh inhalation DAILY 30 days fluticasone propion-salmeterol 250-50 mcg/dose (Wixela Inhub) 1 inh inhalation BID 30 days fluticasone propionate 50 mcg/actuation (Flonase Allergy Relief) 1 spray intranasal BID losartan 50 mg PO DAILY 30 days metoprolol succinate ER 25 mg PO DAILY pantoprazole 40 mg PO DAILY prednisone 10 mg PO BID 7 days walker As directed Do you need a note to return to daycare/school/sports/work: No HPI Cough HPI Details VITOR , 83 YEARS OLD FEMALE, WAS BEING TREATED FOR CHRONIC ALLERGIC RHINITIS, AND COUGH ASTHMA VARIANT. SHE HAD RESPONDED WELL TO ARNUITY -100 1 PUFF B.I.D.. SINCE ABOUT 2 WEEKS SHE WAS HAVING SORE THROAT, WITH INCREASED COUGH, FEELING WEAK AND TIRED, AND WAS SEEN IN THE URGENT CARE CLINIC. HE WAS TREATED WITH COURSE OF Z-MEET EMPIRICALLY . INITIALLY GOT BETTER, BUT ONCE SHE STOPPED THE ANTIBIOTIC SHE STARTED GETTING WORSE AGAIN. ARNUITY WAS PUT ON HOLD BECAUSE SHE WAS COMPLAINING OF SORE THROAT. SHE COMES IN TODAY FOR AN URGENT VISIT BECAUSE OF INTRACTABLE COUGH ESPECIALLY AT NIGHT, SHE ALSO FEELS EXHAUSTED. THE COUGH IS MOSTLY NONPRODUCTIVE. SHE DOES NOT HAVE ACTUAL FEVER. DOES NOT HAVE SORE THROAT BUT NOW HAS SOME HOARSENESS. 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 Son No problems noted. Daughter No problems noted. 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) Vision needs: No Review of Systems Const All systems reviewed & are unremarkable except as noted in HPI and below Eyes Reports no additional complaints ENT Reports nasal congestion and Reports nasal discharge Card Denies chest pain, Denies irregular heart rhythm and Denies leg edema Resp Reports as per HPI GI Reports heartburn (Controlled with medicine) Reports no additional complaints Musc Reports no additional complaints Skin/Breast Reports system reviewed and no additional complaints, except as documented Neuro Reports no additional complaints Psych Reports anxiety Endo Reports no additional complaints Ty/Lymph Details: Mild chronic leukopenia Aller/Immun Details: Patient has, no specific allergy to any medications Physical Exam Vital Signs: Last Vital Signs Pulse 83 12/15/23 10:46 BP 120/60 12/15/23 10:46 Pulse Ox 99 12/15/23 10:46 Oxygen Delivery Method Room Air 12/15/23 10:46 Const General: healthy appearing, comfortable (Except for mild intermittent cough), no acute distress, alert and awake Orientation/consciousness: patient oriented x3 HEENT Head: Yes normal to inspection General nose exam: No nasal polyps present and No nasal discharge present Face and sinus: Yes sinuses nontender Mouth: oropharynx normal (No thrush or exudates are seen) Throat: Yes posterior oropharynx normal Eyes General: appearance normal, both eyes and all related structures Neck Neck: Yes normal visual inspection, Yes no lymphadenopathy, Yes trachea midline and Yes no JVD Thyroid: Thyroid normal Chest Chest palpation & inspection: normal inspection of the chest, normal palpation of entire chest wall and no tenderness Resp Other: Percussion note is resonant Breath sounds are harsh on both sides. There are bilateral expiratory wheezes Cardio Palpation: normal PMI Rate: regular rate Rhythm: regular rhythm Heart sounds: no gallops and no murmurs Peripheral pulses: Peripheral pulses 2+ throughout GI Palpation (GI): Soft to palpation, nontender, No hepatosplenomegaly present and no masses Auscultation: normal bowel sounds Back/Spine/Pelvis Thoracic/Lumbar Spine: thoracic and lumbar spine normal to inspection Skin General skin exam: no rashes or lesions noted Neuro General: patient oriented x3 and no focal motor deficits Cranial nerves: Yes CN's II-XII intact bilaterally Extrem General: Yes normal to inspection, Yes no clubbing, cyanosis or edema and Yes no calf tenderness Psych Appearance: grossly normal and well kempt Speech and movement: Normal speech and movement present Assessment & Plan Assessment & Plan (1) Bronchitis: Comment: Patient has clinical picture of acute bronchitis, it may be originally from acute viral infection. Rule out pneumonia. Code(s): J40 - Bronchitis, not specified as acute or chronic Plan: Chest x-ray is ordered, also CBC with diff and CRP are ordered (2) Allergic rhinitis: Comment: Patient has longstanding history of allergic rhinitis, it has been mild and intermittent. Code(s): J30.9 - Allergic rhinitis, unspecified Plan: Continue Flonase 2 spray each nostril daily (3) Asthma: Comment: I think her cough is an asthma variant. At present she seems to have acute asthmatic bronchitis. Code(s): J45.909 - Unspecified asthma, uncomplicated Plan: Course of Z-Meet. Course of prednisone 10 mg b.i.d. for 1 week. Change Arnuity 2 Wixela 250-51 inhalation b.i.d. Steam inhalations 2 to 3 times a day (4) Cough: Comment: Chronic cough, most likely allergic, Secondary to chronic, allergic rhinitis , asthma variant . Acute exacerbation at this time is secondary to acute asthmatic bronchitis. Code(s): R05 - Cough Qualifiers: Cough type: chronic Qualified Code(s): R05.3 - Chronic cough Plan: Treatment as under bronchial asthma. May also use cough drops as often as needed. Will recheck in 2 weeks Orders: Orders CRP High Sensitivity Today J40 - Bronchitis, not specified as acute or chronic, J45.909 - Unspecified asthma, uncomplicated, R05 - Cough XR chest 2V Today J30.9 - Allergic rhinitis, unspecified, J40 - Bronchitis, not specified as acute or chronic, J45.909 - Unspecified asthma, uncomplicated, R05 - Cough Complete Blood Count Auto Diff Today J30.9 - Allergic rhinitis, unspecified, J40 - Bronchitis, not specified as acute or chronic, J45.909 - Unspecified asthma, uncomplicated, R05 - Cough Medications: New prednisone 10 mg PO BID 7 days 14 tabs 0RF ASTHMATIC bRONCHITIS fluticasone propion-salmeterol 250-50 mcg/dose (Wixela Inhub) 1 inh inhalation BID 30 days 60 ea 3RF ASTHMATIC BRONCHITIS azithromycin For 250 mg dose pack: take 500 mg today (day 1), then 250 mg for 4 days (days 2-5) PO 6 tabs 0RF Changed From apixaban (Eliquis) 5 mg PO BID 180 tabs 0RF To apixaban (Eliquis) 2.5 mg PO BID Coding Level of Care Code Est Pt Level 4 (12369) Diagnoses Bronchitis J40 Allergic rhinitis J30.9 Asthma J45.909 Cough R05.3 Cough type: chronic
[2023-12-15 10:46] VITALS: BP 120/60; PULSE 83; O2SAT 99
== END 2023-12-15 11:08 | disposition home or self-care (01) ==
PROVIDERS: PCP Internal Medicine; Visit Provider Internal Medicine
DX: J40 Bronchitis, not specified as acute or chronic (principal); J30.9 Allergic rhinitis, unspecified
CPT/HCPCS: 99214

== ENCOUNTER 2023-12-31 14:31 | Outpatient (AMB) | payer MEDICARE, SELFPAY ==
--- NOTE | 2023-12-31 14:53 | A.OFFVIS_ITS ---
Intake Vital Signs 12/31/23 14:54 Height 4 ft 11 in Weight 155 lb BMI 31.3 BP 140/70 H Blood Pressure Location Lt brachial Position Sitting Pulse 68 Pulse Source Pulse Oximeter Pulse Oximetry (%) 100 Oxygen Delivery Method Room Air Intake Visit Reasons: Cough Intake Note: pt is here for follow up and states she is still choking at night, did not get cough syrup. Needs help Rehabilitation Counsellor Required: No Allergies ENVIRONMENTAL Allergy (Mild, Uncoded 12/31/23 16:44) CONGESTION Medication List - Last Reconciled 12/31/23 by Brian Reyna MD albuterol sulfate 90 mcg/actuation 2 puffs inhalation Q4-6H PRN 30 days amitriptyline 10 mg PO DAILY apixaban (Eliquis) 2.5 mg PO BID cholecalciferol (vitamin D3) 1,250 mcg PO QWEEK codeine-guaifenesin 10-200 mg/5 mL 10 mL PO Q4-6H PRN 30 days MDD . ALLERGIC RHINITIS fluticasone propionate 50 mcg/actuation (Flonase Allergy Relief) 1 spray intranasal BID loratadine (Claritin) 10 mg PO DAILY losartan 50 mg PO DAILY 30 days metoprolol succinate ER 25 mg PO DAILY pantoprazole 40 mg PO DAILY walker As directed Do you need a note to return to daycare/school/sports/work: No HPI Cough HPI Details Elisabeth comes back today with complaint of ongoing cough . She feels congested in her nose and d eep down in the throat. Cough is mostly dry and she has not able to expectorates. As a consequence she gets more short of breath. She has no fever or chills. She was given a course of prednisone which did help, but once she stopped it a few days later she started having increasing amount of cough again. She took full course of doxycycline which did not help much. I had prescribed guaifenesin with codeine but she could not get that syrup. 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 Son No problems noted. Daughter No problems noted. 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) Vision needs: No Review of Systems Const All systems reviewed & are unremarkable except as noted in HPI and below Eyes Reports no additional complaints ENT Reports nasal congestion and Reports nasal discharge Card Denies chest pain, Denies irregular heart rhythm and Denies leg edema Resp Reports as per HPI GI Reports heartburn (Controlled with medicine) Reports no additional complaints Musc Reports no additional complaints Skin/Breast Reports system reviewed and no additional complaints, except as documented Neuro Reports no additional complaints Psych Reports anxiety Endo Reports no additional complaints Ty/Lymph Details: Mild chronic leukopenia Aller/Immun Details: Patient has, no specific allergy to any medications Physical Exam Vital Signs: Last Vital Signs Pulse 68 12/31/23 14:54 BP 140/70 H 12/31/23 14:54 Pulse Ox 100 12/31/23 14:54 Oxygen Delivery Method Room Air 12/31/23 14:54 BMI result Body Mass Index 31.3 Const General: healthy appearing, comfortable (Except for mild intermittent cough), no acute distress, alert and awake Orientation/consciousness: patient oriented x3 HEENT Head: Yes normal to inspection General nose exam: No nasal polyps present and No nasal discharge present Face and sinus: Yes sinuses nontender Mouth: oropharynx normal (No thrush or exudates are seen) Throat: Yes posterior oropharynx normal Eyes General: appearance normal, both eyes and all related structures Neck Neck: Yes normal visual inspection, Yes no lymphadenopathy, Yes trachea midline and Yes no JVD Thyroid: Thyroid normal Chest Chest palpation & inspection: normal inspection of the chest, normal palpation of entire chest wall and no tenderness Resp Other: Percussion note is resonant Breath sounds are harsh on both sides. There are bilateral expiratory wheezes Cardio Palpation: normal PMI Rate: regular rate Rhythm: regular rhythm Heart sounds: no gallops and no murmurs Peripheral pulses: Peripheral pulses 2+ throughout GI Palpation (GI): Soft to palpation, nontender, No hepatosplenomegaly present and no masses Auscultation: normal bowel sounds Back/Spine/Pelvis Thoracic/Lumbar Spine: thoracic and lumbar spine normal to inspection Skin General skin exam: no rashes or lesions noted Neuro General: patient oriented x3 and no focal motor deficits Cranial nerves: Yes CN's II-XII intact bilaterally Extrem General: Yes normal to inspection, Yes no clubbing, cyanosis or edema and Yes no calf tenderness Psych Appearance: grossly normal and well kempt Speech and movement: Normal speech and movement present Results Reviewed Results Reviewed: Chest x-ray on 12/14 no pneumonia but perihilar bronchial wall thickening consistent with bronchitis. CBC normal white cell count, no eosinophilia. CRP 4.6 ( high ) Assessment & Plan Assessment & Plan (1) Allergic rhinitis: Comment: Patient has longstanding history of allergic rhinitis, it has been mild and i ntermittent. Code(s): J30.9 - Allergic rhinitis, unspecified Plan: Take Claritin 10 mg 1 daily (2) Asthma: Comment: I think her cough is an asthma variant. At present she seems to have acute asthmatic bronchitis. Code(s): J45.909 - Unspecified asthma, uncomplicated Plan: Prednisone 5 mg b.i.d. , continue for a few weeks (3) Bronchitis: Comment: Patient has clinical picture of acute bronchitis, it may be originally from acute viral infection. Rule out pneumonia. X-ray was negative for pneumonia, but perihilar bronchial thickening indicated of chronic bronchitis Code(s): J40 - Bronchitis, not specified as acute or chronic Plan: Patient was treated with a course of doxycycline. Now she will be kept on a low-dose prednisone for a few weeks (4) Cough: Comment: Chronic cough, most likely allergic, Secondary to chronic, allergic rhinitis , asthma variant , and chronic bronchitis. Code(s): R05 - Cough Qualifiers: Cough type: chronic Qualified Code(s): R05.3 - Chronic cough Plan: Prednisone. 5 mg b.i.d. Claritin 10 mg once a day. Robitussin DM 2 tsp at nighttime Coding Level of Care Code Est Pt Level 3 (79883) Diagnoses Allergic rhinitis J30.9 Asthma J45.909 Bronchitis J40 Cough R05.3 Cough type: chronic
[2023-12-31 14:54] VITALS: BP 140/70; PULSE 68; O2SAT 100; BMI 31.3
== END 2023-12-31 15:37 | disposition home or self-care (01) ==
PROVIDERS: PCP Internal Medicine; Visit Provider Internal Medicine
DX: J45.909 Unspecified asthma, uncomplicated (principal); R05.3 Chronic cough
CPT/HCPCS: 99213

== ENCOUNTER → 2023-12-31 14:31 | Outpatient (BNVA) | payer MEDICARE, SELFPAY | PROVIDERS: PCP Internal Medicine; Visit Provider Internal Medicine | DX: J45.909 Unspecified asthma, uncomplicated (principal); J40 Bronchitis, not specified as acute or chronic; R05.3 Chronic cough | CPT/HCPCS: 99212 ==

== ENCOUNTER 2024-01-21 15:23 | Outpatient (AMB) | payer MEDICARE, SELFPAY ==
--- NOTE | 2024-01-21 15:26 | A.OFFPC_ITS ---
Vital Signs 01/21/24 15:28 Height 4 ft 11 in Weight 156 lb 8 oz BMI 31.6 BP 132/62 Blood Pressure Location Rt brachial Position Sitting Pulse 73 Pulse Source Pulse Oximeter Pulse Oximetry (%) 98 Oxygen Delivery Method Room Air Intake Visit Reasons: 3 month f/u Intake Note: Patient is here to follow up on Asthma. HTN. Warp Dyeing Vat Tender Required: No Steel Detailer: Present Accompanied by: Spouse Allergies ENVIRONMENTAL Allergy (Mild, Uncoded 01/28/24 06:52) CONGESTION Medication List - Last Reconciled 01/28/24 by Mustapha Andrew MD albuterol sulfate 90 mcg/actuation 2 puffs inhalation Q4-6H PRN 30 days amitriptyline 10 mg PO DAILY apixaban (Eliquis) 2.5 mg PO BID cholecalciferol (vitamin D3) 1,250 mcg PO QWEEK fluticasone propionate 50 mcg/actuation (Flonase Allergy Relief) 1 spray intranasal BID loratadine (Claritin) 10 mg PO DAILY losartan 50 mg PO DAILY 30 days metoprolol succinate ER 25 mg PO DAILY pantoprazole 40 mg PO DAILY walker As directed Tobacco use date assessed: 01/21/24 Fall risk assessment: No Falls in past year Last assessed Fall Risk: 01/21/24 Dental Screening Dental Screen Date: 10/15/23 HPI 3 month f/u HPI Details 83 yr old female presents to the office to discuss her chronic medical problems. Patient is at baseline state of health, compliant with all medications and able to do all her ADL's. Reporting no side effects from her medications. 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 Son No problems noted. Daughter No problems noted. 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 Easton Peña, Kim Smith, Irvin Arvizu and colleagues, with an educational robina from [employer]. Physical exam (Primary Care) Vital Signs: Last Vital Signs Pulse 73 01/21/24 15:28 BP 132/62 01/21/24 15:28 Pulse Ox 98 01/21/24 15:28 Oxygen Delivery Method Room Air 01/21/24 15:28 Care Plan Goal for BP management: BP is stable, continue current medications BMI result Body Mass Index 31.6 BMI Assessment/Plan discussion: High Tobacco/Smoking Status: Tobacco use Status Tobacco use date assessed 01/21/24 01/21/24 15:36 Patient Tobacco Use Status Never used Tobacco 01/21/24 15:36 e-Cigarette/Vaping Use Never Used 01/21/24 15:36 Thrive Assessment: Date of Thrive Assessment Date Thrive assessed 10/15/23 01/21/24 15:36 Assessment and Plan Assessment & Plan (1) Hypertension: Code(s): I10 - Essential (primary) hypertension Qualifiers: Hypertension type: essential hypertension Qualified Code(s): I10 - Essential (primary) hypertension Plan: Blood pressure is stable, continue medications at same dosage. Encouraged patient to walk daily. Medications: Refilled losartan 50 mg PO DAILY 30 tabs 3RF hypertension 30 days Coding Level of Care Code Est Pt Level 3 (30843) Diagnoses Essential hypertension I10 Hypertension type: essential hypertension
[2024-01-21 15:28] VITALS: BP 132/62; PULSE 73; O2SAT 98; BMI 31.6
== END 2024-01-21 16:24 | disposition home or self-care (01) ==
PROVIDERS: PCP Internal Medicine; Visit Provider Internal Medicine
DX: I10 Essential (primary) hypertension (principal)
CPT/HCPCS: 99213

== ENCOUNTER 2024-01-27 14:53 | Outpatient (AMB) | payer MEDICARE, SELFPAY ==
--- NOTE | 2024-01-27 15:10 | A.OFFVIS_ITS ---
Vital Signs 01/27/24 15:11 Height 4 ft 11 in Weight 158 lb 11.725 oz BMI 32.1 BP 130/62 Blood Pressure Location Lt brachial Position Sitting Pulse 71 Pulse Source Pulse Oximeter Pulse Oximetry (%) 98 Oxygen Delivery Method Room Air Intake Visit Reasons: Cough Intake Note: pt is here for follow up and states the cough is better, now only every now and than,finished prednisone. Sawmill Manager Required: No Allergies ENVIRONMENTAL Allergy (Mild, Uncoded 01/27/24 15:35) CONGESTION Medication List - Last Reconciled 01/27/24 by Brian Reyna MD albuterol sulfate 90 mcg/actuation 2 puffs inhalation Q4-6H PRN 30 days amitriptyline 10 mg PO DAILY apixaban (Eliquis) 2.5 mg PO BID cholecalciferol (vitamin D3) 1,250 mcg PO QWEEK fluticasone propionate 50 mcg/actuation (Flonase Allergy Relief) 1 spray intranasal BID loratadine (Claritin) 10 mg PO DAILY losartan 50 mg PO DAILY 30 days metoprolol succinate ER 25 mg PO DAILY pantoprazole 40 mg PO DAILY walker As directed Do you need a note to return to daycare/school/sports/work: No HPI HPI Cough: Details: VITOR COMES AFTER 4 WEEKS FOR FOLLOW-UP. SHE COMPLETED THE COURSE OF DOXYCYCLINE AND PREDNISONE 2 WEEKS AGO. FOR THE LAST 2 WEEKS SHE HAS NOT TAKEN ANY PREDNISONE. KEEPING OUR FINGERS CROSSED, SHE FEELS BETTER, CLAIMS THAT COUGH IS MUCH LESS, ACTUALLY ONLY MINIMAL. SHE STILL TAKES ROBITUSSIN LIQUID 2 TSP AT NIGHTTIME. SHE STILL USING CLARITIN 10 MG DAILY AND FLONASE TO CONTROL HER NASAL ALLERGIES. AT THIS TIME SHE IS VERY HAPPY AND SATISFIED. 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 Son No problems noted. Daughter No problems noted. 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) Vision needs: No Review of Systems Const All systems reviewed & are unremarkable except as noted in HPI and below Eyes Reports no additional complaints ENT Reports nasal congestion and Reports nasal discharge Card Denies chest pain, Denies irregular heart rhythm and Denies leg edema Resp Reports as per HPI GI Reports heartburn (Controlled with medicine) Reports no additional complaints Musc Reports no additional complaints Skin/Breast Reports system reviewed and no additional complaints, except as documented Neuro Reports no additional complaints Psych Reports anxiety Endo Reports no additional complaints Ty/Lymph Details: Mild chronic leukopenia Aller/Immun Details: Patient has, no specific allergy to any medications Physical Exam Vital Signs: Last Vital Signs Pulse 71 01/27/24 15:11 BP 130/62 01/27/24 15:11 Pulse Ox 98 01/27/24 15:11 Oxygen Delivery Method Room Air 01/27/24 15:11 BMI result Body Mass Index 32.1 Const General: healthy appearing, comfortable (Except for mild intermittent cough), no acute distress, alert and awake Orientation/consciousness: patient oriented x3 HEENT Head: Yes normal to inspection General nose exam: No nasal polyps present and No nasal discharge present Face and sinus: Yes sinuses nontender Mouth: oropharynx normal (No thrush or exudates are seen) Throat: Yes posterior oropharynx normal Eyes General: appearance normal, both eyes and all related structures Neck Neck: Yes normal visual inspection, Yes no lymphadenopathy, Yes trachea midline and Yes no JVD Thyroid: Thyroid normal Chest Chest palpation & inspection: normal inspection of the chest, normal palpation of entire chest wall and no tenderness Resp Other: Percussion note is resonant Breath sounds are clear and equal. No audible wheezes, rhonchi or crepitations. Cardio Palpation: normal PMI Rate: regular rate Rhythm: regular rhythm Heart sounds: no gallops and no murmurs Peripheral pulses: Peripheral pulses 2+ throughout GI Palpation (GI): Soft to palpation, nontender, No hepatosplenomegaly present and no masses Auscultation: normal bowel sounds Back/Spine/Pelvis Thoracic/Lumbar Spine: thoracic and lumbar spine normal to inspection Skin General skin exam: no rashes or lesions noted Neuro General: patient oriented x3 and no focal motor deficits Cranial nerves: Yes CN's II-XII intact bilaterally Extrem General: Yes normal to inspection, Yes no clubbing, cyanosis or edema and Yes no calf tenderness Psych Appearance: grossly normal and well kempt Speech and movement: Normal speech and movement present Assessment & Plan Assessment & Plan (1) Allergic rhinitis: Comment: Patient has longstanding history of allergic rhinitis, Her symptoms are around the year and can flare up with any change in the weather, it has been mild and intermittent. Seems to be at her baseline at this time. Code(s): J30.9 - Allergic rhinitis, unspecified Category: Medical Plan: Flonase-50 2 spray in each nostril daily Loratadine 10 mg once a day, may cut down to p.r.n. (2) Cough: Comment: Chronic cough, most likely allergic, and asthma variant Secondary to chronic, allergic rhinitis . Code(s): R05 - Cough Category: Medical Qualifiers: Cough type: chronic Qualified Code(s): R05.3 - Chronic cough Plan: Use of prednisone for 2 weeks did help. Now just use Robitussin 2 tsp 3 times a day as needed and especially at nighttime (3) Asthma: Comment: I think her cough is an asthma variant. As the element of acute bronchitis has been treated, her symptoms are down to minimal. Code(s): J45.909 - Unspecified asthma, uncomplicated Category: Medical Plan: May use albuterol HFA 2 puffs Q 4-6 hours only p.r.n.. She also has nebulizer unit at home and may use ipratropium/albuterol solution in the nebulizer Q 6 hours p.r.n. Coding Level of Care Code Est Pt Level 3 (06288) Diagnoses Allergic rhinitis J30.9 Cough R05.3 Cough type: chronic Asthma J45.909
[2024-01-27 15:11] VITALS: BP 130/62; PULSE 71; O2SAT 98; BMI 32.1
== END 2024-01-27 15:37 | disposition home or self-care (01) ==
PROVIDERS: PCP Internal Medicine; Visit Provider Internal Medicine
DX: J30.9 Allergic rhinitis, unspecified (principal); R05.3 Chronic cough; J45.909 Unspecified asthma, uncomplicated
CPT/HCPCS: 99213

== ENCOUNTER → 2024-01-27 14:53 | Outpatient (BNVA) | payer MEDICARE, SELFPAY | PROVIDERS: PCP Internal Medicine; Visit Provider Internal Medicine | DX: R05.3 Chronic cough (principal); J45.909 Unspecified asthma, uncomplicated | CPT/HCPCS: 99212 ==

== ENCOUNTER 2024-02-15 12:57 | Outpatient (AMB) | payer MEDICARE, SELFPAY ==
[2024-02-15 13:05] VITALS: BP 130/78; PULSE 73; TEMP 36.6; O2SAT 75; BMI 32.7
--- NOTE | 2024-02-15 13:05 | AM.OFFWIN_ITS ---
Intake Vital Signs 02/15/24 13:05 Height 4 ft 11 in Weight 162 lb BMI 32.7 BP 130/78 Blood Pressure Location Lt brachial Position Sitting Pulse 73 Pulse Source Pulse Oximeter Temp 97.9 F Temp Source Temporal Artery Scan Pulse Oximetry (%) 75 L Oxygen Delivery Method Room Air Oxygen Flow Rate 97.9 Intake Visit Reasons: EP leg pain both legs Intake Note: pt is here today for leg pain in both legs started 3 days ago Patient Tobacco Use Status: Never used Tobacco Allergies ENVIRONMENTAL Allergy (Mild, Uncoded 02/15/24 14:43) CONGESTION Medication List - Last Reconciled 02/15/24 by Mustapha Andrew MD albuterol sulfate 90 mcg/actuation 2 puffs inhalation Q4-6H PRN 30 days amitriptyline 10 mg PO DAILY apixaban (Eliquis) 2.5 mg (1/2 x 5 mg) PO DAILY cholecalciferol (vitamin D3) 1,250 mcg PO QWEEK cyclobenzaprine 10 mg PO BEDTIME fluticasone propionate 50 mcg/actuation (Flonase Allergy Relief) 1 spray intranasal BID loratadine (Claritin) 10 mg PO DAILY losartan 50 mg PO DAILY 30 days metoprolol succinate ER 25 mg PO DAILY pantoprazole 40 mg PO DAILY walker As directed Do you need a note to return to daycare/school/sports/work: No HPI EP leg pain both legs HPI Details 83-year-old female presents to the [facility] for a sick visit. She is also my primary care patient. Patient is reporting symptoms of heavy legs. She feels they are painful. No shortness of breath. No fevers or chills. 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 Son No problems noted. Daughter No problems noted. 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) Vision needs: No Physical Exam Vital Signs: Last Vital Signs Temp 97.9 F 02/15/24 13:05 Pulse 73 02/15/24 13:05 BP 130/78 02/15/24 13:05 Pulse Ox 75 L 02/15/24 13:05 Oxygen Delivery Method Room Air 02/15/24 13:05 Oxygen Flow Rate 97.9 02/15/24 13:05 BMI result Body Mass Index 32.7 Const General: cooperative and healthy appearing Nutritional Appearance: well nourished Orientation/consciousness: patient oriented x3 Limitations: no limitations HEENT Head: Yes normal to inspection Eyes General: appearance normal, both eyes and all related structures Neck Neck: Yes normal visual inspection Chest Chest palpation & inspection: normal palpation of entire chest wall Resp Effort & Inspection: normal respiratory effort Neuro General: patient oriented x3 Extrem Other: Right and left lower extremity: Knees: Full range of motion. Ankles: Full range of motion. Increased is spider vein markings on the right ankle. No prominent veins. Assessment & Plan Assessment & Plan (1) Myalgia: Code(s): M79.10 - Myalgia, unspecified site Plan: Cyclobenzaprine added to the regimen. If symptoms not better, to follow up here. Medications: New apixaban (Eliquis) 2.5 mg (1/2 x 5 mg) PO DAILY 90 tabs 1RF cyclobenzaprine 10 mg PO BEDTIME 14 tabs 0RF Refilled losartan 50 mg PO DAILY 30 days 30 tabs 3RF hypertension Coding Level of Care Code Est Pt Level 3 (39984) Diagnoses Myalgia M79.10
== END 2024-02-15 14:58 | disposition home or self-care (01) ==
PROVIDERS: PCP Internal Medicine; Visit Provider Internal Medicine
DX: M79.10 Myalgia, unspecified site (principal)
CPT/HCPCS: 99213

== ENCOUNTER 2024-03-07 09:03 | Outpatient (AMB) | payer MEDICARE, SELFPAY ==
[2024-03-07 09:14] VITALS: BP 140/90; PULSE 74; TEMP 36.2; O2SAT 95; BMI 32.3
--- NOTE | 2024-03-07 09:14 | MHC.OFFWIV ---
Intake Vital Signs 03/07/24 09:14 Height 4 ft 11 in Weight 160 lb BMI 32.3 BP 140/90 H Blood Pressure Location Lt brachial Position Sitting Pulse 74 Pulse Source Pulse Oximeter Temp 97.2 F Temp Source Temporal Artery Scan Pulse Oximetry (%) 95 Oxygen Delivery Method Room Air Intake Visit Reasons: EP RT knee injury Intake Note: pt is here today for rt knee injury started 1 week ago Patient Tobacco Use Status: Never used Tobacco Allergies ENVIRONMENTAL Allergy (Mild, Uncoded 03/07/24 09:19) CONGESTION Do you need a note to return to daycare/school/sports/work: No HPI HPI Comments History of Present Illness Details Patient presents to the walk-in today for sick visit Complaining of right knee pain since last week Reports fell when stepping off of a curb and landed on the right knee Pain is worse with ambulation. 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 Son No problems noted. Daughter No problems noted. 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) Vision needs: No Review of Systems Const All systems reviewed & are unremarkable except as noted in HPI and below Physical Exam Vital Signs: Last Vital Signs Temp 97.2 F 03/07/24 09:14 Pulse 74 03/07/24 09:14 BP 140/90 H 03/07/24 09:14 Pulse Ox 95 03/07/24 09:14 Oxygen Delivery Method Room Air 03/07/24 09:14 BMI result Body Mass Index 32.3 General: awake, alert, oriented. Answers questions appropriately. Fully engaged in examination. Skin: warm, dry, intact HEENT: Normocephalic. Hearing intact. Cardiac: External chest normal in appearance. Respiratory: No cough, audible wheezing or stridor. Abdomen: without gross distension. MS: No obvious swelling or deformities. Able to transition from sit to stand unassisted. Ambulates with bilaterally normal heel strike and toe off Right knee: Tender to palpation lateral joint line and below the kneecap. Full range of motion. Neurological: Oriented to person, place, time and situation. Thought process intact. No gait abnormalities appreciated. Psychiatric: Appropriate mood and affect. Good judgment and insight. Results Reviewed Results Reviewed: Right knee x-ray: Negative fracture dislocation Assessment & Plan Assessment & Plan (1) Knee pain, right: Code(s): M25.561 - Pain in right knee Plan Right knee x-ray ordered and independently reviewed: No fracture or dislocation Cuate wrap applied, patient advised on use Continue with ice, heat, elevation and rest Tylenol as needed Patient unable to take nonsteroidal anti-inflammatories as she is on Eliquis Referral placed for Orthopedics All questions and concerns were answered, patient agrees with the plan Follow up with Orthopedics, PCP or return here for any new or worsening symptoms Orders: Referrals Orthopedics Referral M25.561 - Pain in right knee Coding Level of Care Code Est Pt Level 4 (42313) Diagnoses Knee pain, right M25.561
== END 2024-03-07 10:49 | disposition home or self-care (01) ==
PROVIDERS: PCP Internal Medicine; Visit Provider Registered Nurse Emergency
DX: M25.561 Pain in right knee (principal)
CPT/HCPCS: 99213

== ENCOUNTER 2024-03-07 09:41 | Outpatient (REF) | payer MEDICARE, SELFPAY ==
--- NOTE | ~2024-03-07 | XR_ITS ---
EXAMINATION: XR KNEE, RIGHT CLINICAL INFORMATION: Pain in right knee COMPARISON: None available. TECHNIQUE: Four views of the right knee. FINDINGS: No fracture. Small joint effusion. Alignment is anatomic. Tricompartment mild narrowing of the joint spaces. No abnormal soft tissue calcification. Quadriceps enthesopathy is noted. XR/XR knee RT 4V IMPRESSION: Mild tricompartment narrowing of the joint spaces.
== END 2024-03-07 09:42 | disposition home or self-care (01) ==
LOC: HO.HMGCX 09:41
PROVIDERS: PCP Internal Medicine; Visit Provider Registered Nurse Emergency
DX: M25.561 Pain in right knee (principal)
CPT/HCPCS: 73564

== ENCOUNTER 2024-03-18 14:57 | Emergency (ER) | payer MEDICARE, SELFPAY ==
--- NOTE | ~2024-03-18 | XR_ITS ---
EXAMINATION: XR LUMBOSACRAL SPINE CLINICAL INFORMATION: Fall, numbness and tingling of the right leg. COMPARISON: No similar priors. TECHNIQUE: Three views of the lumbosacral spine. FINDINGS: S-shaped thoracolumbar curvature. No evidence of acute compression deformity. Trace grade 1 retrolisthesis at L2-L3 and L3-L4. Trace grade 1 anterolisthesis at L5-S1. Moderate to severe multilevel spondylosis with intervertebral disc height loss, marginal osteophytes and facet arthropathy leading to multilevel neural foraminal encroachment. Of note, evaluation of the central spinal canal by radiograph is limited. Symmetric SI joints. Scattered atherosclerotic disease. No significant paraspinal soft tissue abnormality. XR/XR lumbar spine 2-3V IMPRESSION: 1. No evidence of acute compression deformity. 2. Grade 1 anterolisthesis and retrolisthesis at multiple levels as above. 3. Moderate to severe multilevel spondylosis.
--- NOTE | ~2024-03-18 | US_ITS ---
EXAMINATION: US VENOUS ULTRASOUND WITH DOPPLER LOWER EXTREMITY, RIGHT CLINICAL INFORMATION: Pain and swelling COMPARISON: None available. TECHNIQUE: Ultrasound of the deep veins is performed from the hip to the calf with compression sonography and color and pulse Doppler assessment. Spectral analysis with color-flow imaging is performed. FINDINGS: There is normal venous compression and respiratory variation and augmented flow. The visualized common femoral vein, superficial femoral vein, profunda femoral vein, popliteal vein, and the trifurcation region shows no evidence of deep venous thrombosis. There is no significant popliteal fossa cyst. There are multiple varicosities and perforators veins visualized in the right calf with reflux and varicosities and perforators If the patient's symptoms persist, followup ultrasound in 5 days 7 days might be of value to exclude proximal propagation from a non-visualized calf vein. US/US venous duplex LE RT IMPRESSION: No DVT demonstrated in the right lower extremity.
--- NOTE | 2024-03-18 14:59 | ED_ITS ---
HPI - General Adult General Chief complaint: Extremity Injury, Lower Stated complaint: leg problems Time Seen by Provider: 03/18/24 15:19 Source: patient Mode of arrival: ambulatory Limitations: no limitations History of Present Illness ED Provider: tammy SHARMA narrative: Patient is an 84-year-old female with history of DVT currently on Eliquis which was reduced to 2.5 mg daily by PCP 2-3 weeks ago presenting to the emergency department with complaint of ongoing right knee pain and tingling after a fall on 03/04. Patient reports that she was evaluated at the [facility] ([facility] walk-in after the fall and had an x-ray which was negative for fracture. She was advised to follow-up with orthopedics and has an appointment with Dr. Ybarra on April 03. States that she has been requiring a cane and/or walker for ambulation since the fall. Describes her right leg as feeling very heavy. Complains of tingling to entire knee area, anterior and lateral distal right thigh and down to right foot. She denies head strike or loss of consciousness at the time of her fall. Denies neck or back pain. MD complaint: right knee pain Onset (ago): week(s) Quality: aching Pain Consistency: constant Relieving factors: rest Exacerbating factors: movement Associated symptoms: other (numbness/tingling) Treatments prior to arrival: other (Tylenol) Related Data Home Medications ?Medication ?Instructions ?Recorded ?Confirmed loratadine 10 mg tablet (Claritin) 10 mg PO DAILY 12/31/23 02/15/24 Previous Rx's ?Medication ?Instructions ?Recorded fluticasone propionate 50 1 spray intranasal BID #16 grams 08/31/22 mcg/actuation nasal spray,suspension (Flonase Allergy Relief) walker #1 ea 12/26/22 albuterol sulfate 90 mcg/actuation 2 puff inhalation Q4-6H PRN cough 12/07/23 aerosol inhaler and wheezing 30 days #8.5 grams metoprolol succinate 25 mg 25 mg PO DAILY #90 tabs 01/11/24 tablet,extended release 24 hr cholecalciferol (vitamin D3) 1,250 1,250 mcg PO QWEEK #12 caps 02/05/24 mcg (50,000 unit) capsule amitriptyline 10 mg tablet 10 mg PO DAILY #90 tabs 02/10/24 cyclobenzaprine 10 mg tablet 10 mg PO BEDTIME #14 tabs 02/15/24 losartan 50 mg tablet 50 mg PO DAILY hypertension 30 02/15/24 days #30 tabs apixaban 2.5 mg tablet (Eliquis) 2.5 mg PO DAILY #90 tabs 02/16/24 pantoprazole 40 mg tablet,delayed 40 mg PO DAILY #90 tabs 03/05/24 release lidocaine 4 % topical patch 1 patch topical DAILY PRN pain #15 03/18/24 ea Allergies Allergy/AdvReac Type Severity Reaction Status Date / Time No Known Allergies Allergy Verified 03/18/24 15:05 Review of Systems Review of Systems: As per HPI. 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 Son No problems noted. Daughter No problems noted. 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 Blood pressure elevated. Heart rate normal. Respiratory rate normal. Temperature normal. Oxygen saturation normal. Const General: cooperative, healthy appearing and no acute distress Orientation/consciousness: oriented to person, oriented to place, oriented to time and patient oriented x3 Limitations: no limitations HENMT Head: Yes normocephalic and Yes atraumatic Ears: external ears normal General nose exam: Normal external nose present Face and sinus: Yes face symmetric Mouth: oropharynx normal and moist mucous membranes Throat: Yes uvula midline Eyes Pupils: Equal, round and reactive pupils present Neck Neck: Yes normal visual inspection and Yes supple Resp Effort & Inspection: normal respiratory effort and able to speak in complete sentences Auscultation: clear to auscultation bilaterally Cardio Rate: regular rate Rhythm: regular rhythm Heart sounds: S1 normal heart sound present and S2 normal heart sound present GI Palpation (GI): Soft to palpation and nontender Auscultation: normoactive bowel sounds General: Yes no CVA tenderness Back/Spine/Pelvis Back: no CVA tenderness Thoracic/Lumbar Spine: thoracic and lumbar spine normal to inspection, thoraco- lumbar ROM normal, No thoracic spinal tenderness and No lumbar spinal tenderness Pelvis: no pain with anterior-posterior compression and no pain with lateral compression Skin General skin exam: elasticity normal and turgor normal Neuro General: oriented to person, oriented to place, oriented to time, patient oriented x3, moves all extremities, no focal motor deficits and CN's II-XI intact bilaterally Cranial nerves: Yes Equal, round and reactive pupils present Cognition (Neuro): normal cognition Extrem General: Yes full ROM, Yes no pedal edema and Yes no calf tenderness Right lower extremity: knee (no erythema) Details: tenderness (diffuse), swelling (diffuse, mild), normal ROM and knee ligament exam normal; no ecchymosis and no unusual warmth and foot Details: vascular exam Details: dorsalis pedis pulse present and posterior tibial pulse present Psych Mental Status: mental status grossly normal Affect: normal affect Thought process: Normal thought process present Course Course Course Narrative: RME performed by Nazanin Radford PA-C. Patient is an 84 year old assigned female at presenting to the emergency department with right lower extremity pain. Patient has a history of varicose veins and knee issues for which she follows with Dr. Ybarra. Detailed physical exam and review of systems are deferred to the executive administrator. Imaging ordered. Patient placed back in the waiting room pending room availability and results. Medical Decision Making Medical Decision Making [facility] Narrative: Patient is an 84-year-old female with history of DVT currently on Eliquis which was reduced to 2.5 mg daily by PCP 2-3 weeks ago presenting to the emergency department with complaint of ongoing right knee pain and tingling after a fall on 03/04. On exam patient is awake, A+Ox3, BP elevated, VS otherwise WNL, afebrile, normal neurological exam without focal deficits, physical exam findings as above. Given reported symptoms and physical exam findings, initial differential includes right lower extremity DVT, knee strain/sprain, lumbar radiculopathy. Ultrasound notable for no RLE DVT. X-ray lumbar spine notable for no compression fracture, moderate to severe spondylosis. My interpretation is in agreement with the radiologist's interpretation. Results discussed with patient and all questions answered. Advised patient to keep her appointment with Dr. Ybarra in March, continue to use Cuate wrap provided by walk-in clinic. Continue with Tylenol as patient is unable to use NSAIDs as she is on Eliquis. Advised to follow-up with PCP. Return precautions discussed. Patient verbalized understanding of and agreement with plan. Differential Diagnosis Differential Diagnoses: The differential diagnosis associated with the presentation includes As per [facility] Independent Interpretation I performed an independent interpretation of an: Plain X-Ray and Ultrasound Interpretation: No DVT RLE X-ray lumbar spine notable for no compression fracture, moderate to severe spondylosis. Radiology Impression Discussion of test interpretation with radiology: I have reviewed the radiologist's reading. Radiologist Impression: US/US venous duplex LE RT IMPRESSION: No DVT demonstrated in the right lower extremity. XR/XR lumbar spine 2-3V IMPRESSION: 1. No evidence of acute compression deformity. 2. Grade 1 anterolisthesis and retrolisthesis at multiple levels as above. 3. Moderate to severe multilevel spondylosis. External Record Review External record reviewed: Inpatient record, Office record and Outpatient record Discharge Plan Discharge Clinical Impression: Pain in right knee Patient Disposition: Home, Self-Care Instructions: Knee Pain (ED), R.I.C.E. Treatment (ED) Additional Instructions: You have been evaluated in the emergency department today for right knee and leg pain. Your evaluation did not find evidence of medical conditions requiring emergent intervention at this time. Please rest, ice, and elevate your leg, and resume normal activities as tolerated. You are being prescribed topical lidocaine patches which you can apply to the affected area for up to 12 hours in a 24 hour period, do not apply heat directly over the patches. We recommend you take 650mg Tylenol every 6 hours as needed for pain. Keep your appointment with Dr. Ybarra in March for further evaluation. Please schedule an appointment for follow-up with your primary care provider this week. Return to the emergency department if you experience worsening pain, numbness, tingling, change of color in your leg, or any other concerning symptoms. Prescriptions: New lidocaine 4 % adhesive patch,medicated 1 patch topical DAILY PRN (Reason: pain) Qty: 15 0RF No Action [facility]DME[facility] See Rx Instructions .Route Qty: 1 0RF Rx Instructions: As directed albuterol sulfate 90 mcg/actuation HFA aerosol inhaler 2 puff inhalation Q4-6H PRN (Reason: cough and wheezing ) 30 Days Qty: 8.5 2RF metoprolol succinate 25 mg tablet extended release 24 hr 25 mg PO DAILY Qty: 90 0RF cholecalciferol (vitamin D3) 1,250 mcg (50,000 unit) capsule 1,250 mcg PO QWEEK Qty: 12 1RF amitriptyline 10 mg tablet 10 mg PO DAILY Qty: 90 1RF pantoprazole 40 mg tablet,delayed release (DR/EC) 40 mg PO DAILY Qty: 90 1RF fluticasone propionate [Flonase Allergy Relief] 50 mcg/actuation spray,suspension 1 spray intranasal BID Qty: 16 0RF Rx Instructions: administer into each nostril ipratropium-albuterol 0.5 mg-3 mg(2.5 mg base)/3 mL solution for nebulization 3 ml inhalation ONCE Qty: 3 0RF losartan 50 mg tablet 50 mg PO DAILY 30 Days Qty: 30 3RF cyclobenzaprine 10 mg tablet 10 mg PO BEDTIME Qty: 14 0RF Eliquis 2.5 mg tablet 2.5 mg PO DAILY Qty: 90 1RF loratadine [Claritin] 10 mg tablet 10 mg PO DAILY Print Language: Hebrew
[2024-03-18 15:00] VITALS: BP 187/66; PULSE 84; RESP 18; TEMP 36.7; O2SAT 98; BMI 31.7
[2024-03-18 17:27] VITALS: BP 164/65; PULSE 68; RESP 20; TEMP 36.6; O2SAT 95
[2024-03-18 18:18] VITALS: BP 164/65; PULSE 68; RESP 20; TEMP 36.6; O2SAT 95
== END 2024-03-18 18:24 | disposition home or self-care (01) ==
PROVIDERS: Emergency Provider Emergency Medicine; PCP Internal Medicine
DX: M25.561 Pain in right knee (principal); R60.0 Localized edema; M54.50 Low back pain, unspecified
CPT/HCPCS: 72100; 93971; 99283; 99284

== ENCOUNTER 2024-04-27 14:00 | Outpatient (AMB) | payer MEDICARE, SELFPAY ==
--- NOTE | 2024-04-27 14:09 | MHC.PC.OV ---
Vital Signs 04/27/24 14:10 Height 4 ft 11 in Weight 158 lb 6 oz BMI 32.0 BP 130/78 Blood Pressure Location Lt brachial Position Sitting Pulse 69 Pulse Source Pulse Oximeter Pulse Oximetry (%) 92 Oxygen Delivery Method Room Air Intake Visit Reasons: 3mof\u Intake Note: Patient is here to follow up on Asthma, HTN. Local Telephone Operator Required: No Doctor Of Radiology: Present Accompanied by: Spouse Allergies No Known Allergies Allergy (Verified 04/27/24 15:02) Medication List - Last Reconciled 04/27/24 by Mustapha Andrew MD albuterol sulfate 90 mcg/actuation 2 puffs inhalation Q4-6H PRN 30 days amitriptyline 10 mg PO DAILY apixaban (Eliquis) 2.5 mg PO BID cholecalciferol (vitamin D3) 1,250 mcg PO QWEEK cyclobenzaprine 10 mg PO BEDTIME fluticasone propionate 50 mcg/actuation (Flonase Allergy Relief) 1 spray intranasal BID lidocaine 4% 1 patch topical DAILY PRN loratadine (Claritin) 10 mg PO DAILY losartan 50 mg PO DAILY 30 days metoprolol succinate ER 25 mg PO DAILY pantoprazole 40 mg PO DAILY walker As directed Tobacco use date assessed: 04/27/24 Fall risk assessment: 1 Fall in past year (03/04/24) Last assessed Fall Risk: 04/27/24 Dental Screening Dental Screen Date: 10/15/23 HPI 3mof\u HPI Details 84-year-old female presents to the office to discuss her chronic medical conditions. Patient continues to have pain and discomfort in her right knee. Symptoms started after a fall on March 04. She was seen at the walk-in clinic and later at the emergency room. X-rays of the knee were unremarkable. Patient continues to have jabbing pain in the knee and sometimes feels unstable. She has a scheduled orthopedic appointment. Patient is also taking Eliquis, but is now taking 2.5 mg once a day. 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 Son No problems noted. Daughter No problems noted. 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 Easton Peña, Kim Smith, Irvin Arvizu and colleagues, with an educational robina from [employer]. Physical exam (Primary Care) Vital Signs: Last Vital Signs Pulse 69 04/27/24 14:10 BP 130/78 04/27/24 14:10 Pulse Ox 92 04/27/24 14:10 Oxygen Delivery Method Room Air 04/27/24 14:10 BMI result Body Mass Index 32.0 Tobacco/Smoking Status: Tobacco use Status Tobacco use date assessed 04/27/24 04/27/24 14:24 Patient Tobacco Use Status Never used Tobacco 04/27/24 14:24 e-Cigarette/Vaping Use Never Used 04/27/24 14:24 Thrive Assessment: Date of Thrive Assessment Date Thrive assessed 10/15/23 04/27/24 14:24 Const General: cooperative and healthy appearing Nutritional Appearance: well nourished Orientation/consciousness: patient oriented x3 Limitations: no limitations HENMT Head: Yes normal to inspection Eyes General: appearance normal, both eyes and all related structures Neck Neck: Yes normal visual inspection Chest Chest palpation & inspection: normal palpation of entire chest wall Resp Effort & Inspection: normal respiratory effort Neuro General: patient oriented x3 Extrem Other: Right knee: Minimal swelling, minimal joint line discomfort. Pain on flexion at the right knee. Assessment and Plan Assessment & Plan (1) Knee pain, right: Code(s): M25.561 - Pain in right knee Plan: Patient was encouraged to keep the appointment with the orthopedic surgeon. 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
[2024-04-27 14:10] VITALS: BP 130/78; PULSE 69; O2SAT 92; BMI 32.0
== END 2024-04-27 14:55 | disposition home or self-care (01) ==
PROVIDERS: PCP Internal Medicine; Visit Provider Internal Medicine
DX: M25.561 Pain in right knee (principal); I82.411 Acute embolism and thrombosis of right femoral vein
CPT/HCPCS: 99214; G2211

== ENCOUNTER 2024-05-02 14:54 | Outpatient (AMB) | payer MEDICARE, SELFPAY ==
[2024-05-02 15:00] VITALS: BMI 32.0
--- NOTE | 2024-05-02 15:00 | MHC.OFFVIS ---
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 The patient states that she injured her knee several weeks ago when she tripped and fell off of a curb. She states that over the last year she has developed ?burning and numbness? in both of her lower extremities. She has done physical therapy exercises which aggravated her pain. She also reports intermittent weakness in her lower extremities. She has taken Tylenol which gives her minimal relief. She is not able to take anti-inflammatory medicines because she is on Eliquis. Allergies No Known Allergies Allergy (Verified 04/27/24 15:02) Medication List - Last Reviewed 05/02/24 by MADDY Parker albuterol sulfate 90 mcg/actuation 2 puffs inhalation Q4-6H PRN 30 days amitriptyline 10 mg PO DAILY apixaban (Eliquis) 2.5 mg PO BID cholecalciferol (vitamin D3) 1,250 mcg PO QWEEK cyclobenzaprine 10 mg PO BEDTIME fluticasone propionate 50 mcg/actuation (Flonase Allergy Relief) 1 spray intranasal BID lidocaine 4% 1 patch topical DAILY PRN loratadine (Claritin) 10 mg PO DAILY losartan 50 mg PO DAILY 30 days metoprolol succinate ER 25 mg PO DAILY pantoprazole 40 mg PO DAILY walker As directed [facility] Medical History Bronchitis Asthma Allergic rhinitis Cough 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 Son No problems noted. Daughter No problems noted. 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) Vision needs: No Physical Exam Vital Signs: BMI result Body Mass Index 32.0 Const Other: Well-nourished well-developed very friendly female awake alert and oriented x3 in no acute distress Back/Spine/Pelvis Other: Low back examination shows bilateral paraspinal muscle tenderness, pain with range of motion, positive straight leg raise test bilaterally at 70 degrees, 4/5 strength with testing of her bilateral hip flexors and knee extensors Extrem Other: Right knee examination shows a minimal effusion, palpable crepitus with range of motion, pain with range of motion, no instability Office Procedures Joint Injection/Aspiration Joint Injection/Aspiration Primary Site: right knee Prep: site was prepped using aseptic technique Injected: 40 mg of, DepoMedrol and 1% plain lidocaine Procedure: The patient tolerated the procedure well Coding 09122 - Large joint Procedure code (CPT) selection complete Results Reviewed Results Reviewed: X-rays of the patient's lumbar spine show scoliosis deformity as well as diffuse degenerative disc disease Right knee x-ray shows joint space narrowing, subchondral sclerosis, no acute bony abnormalities Assessment & Plan Assessment & Plan (1) Knee pain, right: Code(s): M25.561 - Pain in right knee Category: Medical Plan Ms. Darling presents with progressively worsening low back pain which radiates into both of her legs as well as associated bilateral leg weakness possibly due to lumbar stenosis or a disc herniation. Thus, I will send her for an MRI of her lumbar spine for further evaluation. I will contact her by phone once the MRI results are available. She will call me prior to that time should her symptoms worsen in any way. The patient also has right knee pain due to degenerative joint disease. The risks and benefits of a right knee cortisone injection were discussed at length with the patient. The patient wished to proceed with the injection. She tolerated the injection well. She will continue with her activity modifications. Feel free to call me at any time should questions regarding her orthopedic management arise. Thank you very much for asking me to see this very friendly patient. I spent 20 minutes in reviewing the patient's records and imaging studies, seeing the patient and documenting in the medical record. Orders: Orders MR lumbar spine wo con Today M54.41 - Lumbago with sciatica, right side, M54.42 - Lumbago with sciatica, left side AMB Joint Injection/Aspiration 05/02/24 M25.561 - Pain in right knee Coding Level of Care Code New Pt Level 3 (54676) Diagnoses Knee pain, right M25.561 CPT Codes Coding - 33417 Large joint: 61348 - Large joint ([id number])
== END 2024-05-02 15:31 | disposition home or self-care (01) ==
PROVIDERS: PCP Internal Medicine; Visit Provider Orthopaedic Surgery
DX: M25.561 Pain in right knee (principal)
CPT/HCPCS: 20610; 99203

== ENCOUNTER → 2024-05-02 14:54 | Outpatient (BNVA) | payer MEDICARE, SELFPAY | PROVIDERS: PCP Internal Medicine; Visit Provider Orthopaedic Surgery | DX: M25.561 Pain in right knee (principal); M54.41 Lumbago with sciatica, right side; M54.42 Lumbago with sciatica, left side | CPT/HCPCS: 20610; 99202; J1010 ==

== ENCOUNTER → 2024-05-31 13:24 | Outpatient (BNV) | payer MEDICARE, SELFPAY | PROVIDERS: PCP Internal Medicine; Visit Provider Radiology Diagnostic Radiology | DX: M54.41 Lumbago with sciatica, right side (principal) | CPT/HCPCS: 72148 ==

== ENCOUNTER 2024-05-31 13:39 | Outpatient (REF) | payer MEDICARE, SELFPAY ==
--- NOTE | ~2024-05-31 | MR_ITS ---
EXAMINATION: MR LUMBAR SPINE WITHOUT CONTRAST CLINICAL INFORMATION: 84-year-old female. Right leg pain and numbness including anterior hip. Radiculopathy/right sciatica. Fall in February 2024. COMPARISON: No prior MRI. Correlation made with plain films 03/18/2024. TECHNIQUE: Multiplanar multisequence MR imaging of the lumbar spine was done without IV contrast. Standard sequences utilized without gadolinium, on a 1.5 Annita Siemens magnet. FINDINGS: CORONAL ALIGNMENT: -Moderate right convex scoliosis with estimated Almazan angle of 16 degrees, apex at L2-3. SAGITTAL ALIGNMENT: -Mildly exaggerated lordosis. -2 mm degenerative retrolisthesis of T12 on L1. -2 mm degenerative anterolisthesis L1 on L2. -4 mm degenerative retrolisthesis L2 on L3. -3 mm retrolisthesis of L3 on L4. -6 mm spondylolisthesis L5-S1. LUMBOSACRAL JUNCTION: Normal. There are 5 [id number] lumbar-type vertebral bodies. VERTEBRAL BODIES/BONE MARROW: -There are no compression deformities. Mild edematous type endplate changes are present at T12-L1, as well as L2-L3. -Fatty type endplate changes present at L2-3. -No abnormal infiltrating bone marrow signal. DISCS: -Severe disc degeneration at L2-3 and L5-S1. -Moderate to severe degeneration T12-L1, L1-L2. -Moderate degeneration L3-L4. -Mild degeneration L4-5. SPINAL CANAL: -No abnormal developmental findings. CONUS MEDULLARIS: -Terminates at T12. Morphology and signal is normal. INTRADURAL NERVE ROOTS: -Within normal limits. Grossly no masses or clumping seen. Axial Disc Space Images: T12-L1: Only seen on axial T1 and sagittal images, diffuse bulging disc present extending symmetrically into both foraminal zones. Moderate right greater than left hypertrophic degenerative facet changes with posterior ligamentous thickening/infolding. Mild central canal narrowing, mild bilateral subarticular recess narrowing, and moderate left greater than right neural foraminal narrowing. L1-L2: Concentric diffuse disc extrusion present, extending into both foraminal zones and lateral to foramen. Moderate to severe hypertrophic degenerative facet changes bilaterally, with posterior ligamentous thickening/infolding. Moderate central canal narrowing is present. Moderate left greater than right subarticular recess narrowing with contact but no definite impingement of the traversing left L2 root. Moderate to severe left, and mild to moderate right neural foraminal narrowing. L2-L3: Retrolisthesis, degenerative. Severe disc degeneration. Diffuse disc bulge present with a superimposed left foraminal extruded disc, and annular fissuring centrally. Moderate to severe hypertrophic degenerative facet changes bilaterally, with posterior ligamentous thickening/infolding. Combination of findings is resulting in moderate central canal narrowing, with AP diameter of the central canal narrowed to approximately 8 mm.1 there is severe left and moderate to severe right subarticular recess narrowing, with probable impingement of the traversing left L3 roots. There is contact without definitive impingement of the traversing right L3 root. There is severe bilateral neural foraminal stenosis with probable impingement of the exiting bilateral L2 roots. L3-L4: There is a diffuse 1 bulging disc with a superimposed right foraminal and lateral to foramen extrusion of disc material. There is central annular fissuring. There are moderate to severe hypertrophic degenerative facet changes bilaterally, with posterior ligamentous thickening/infolding. There is moderate central canal stenosis, moderate to severe right subarticular recess stenosis with contact and possible mild impingement of the traversing right L4 roots. There is mild left subarticular recess stenosis. There is moderate bilateral right greater than left neural foraminal stenosis. L4-L5: There is a minimal anterolisthesis with disc uncovering, a diffuse shallow disc bulge extending into the right greater than left foraminal zones. There are severe hypertrophic degenerative facet changes right greater than left with posterior ligamentous thickening/infolding. Combination of findings is resulting in moderate central canal stenosis, moderate to severe right and moderate left subarticular recess stenosis, with mass effect and likely mild impingement upon the traversing right greater than left L5 nerve roots. There is moderate right greater than left neural foraminal stenosis. L5-S1: Grade 1 spondylolisthesis with disc uncovering. Diffuse disc bulge present, asymmetrically prominent into the left foraminal zone. There is left far lateral and right far lateral annular fissuring. There is fluid in the left facet joint with severe, end-stage facet degeneration bilaterally with hypertrophic spurring. There is mild posterior ligamentous infolding/thickening. Combination of findings resulting in moderate central canal stenosis, moderate to severe subarticular recess stenosis bilaterally with some degree of mass effect upon the right greater than left traversing S1 roots. There is moderate to severe bilateral neural foraminal encroachment right greater than left, with contact and deviation of the lateral foraminal right exiting L5 bilateral roots. IMAGED SI JOINTS: Mild to moderate degenerative arthritis. PARAVERTEBRAL AND INCLUDED EXTRASPINAL SOFT TISSUES: -There is mild diffuse atrophy of the paraspinous musculature. -There are prominent osteophytes abutting the spinous processes of L2-3, L3-4, and L4-5, in keeping with Stevens's disease. -The aorta is nonaneurysmal but partially obscured by a saturation band. -Very limited imaging of the kidneys demonstrate small cysts. There is a contour abnormality in the superolateral left kidney only seen on T1 imaging, likely a cyst but incompletely characterized. Consider correlating with ultrasound. -There is an incompletely imaged hiatus hernia. MR/MR lumbar spine wo con IMPRESSION: 1. Moderate to severe multilevel lumbar spondylosis as described above, with numerous degenerative subluxations, and a grade 1 spondylolisthesis L5-S1. 2. There is a 16 degree dextroconvex scoliosis. 3. There is no severe central canal narrowing. There is moderate central canal narrowing at L2-3, L3-4, L4-5, and L5-S1, with associated varying degrees of subarticular recess and neural foraminal stenosis. See above for details. 4. Severe disc degeneration L2-3. Edematous endplate changes T12-L1 and L2-3. No compression deformities. 5. Contour abnormality only seen on T1 axial in the superolateral left kidney. This is likely a cyst although consider dedicated ultrasound imaging for confirmation. 6. Additional ancillary findings as discussed in the body of the report. Electronically signed by: Angel Cruz MD 06/17/2024 12:08 PM EDT
== END 2024-05-31 13:40 | disposition home or self-care (01) ==
LOC: HO.MRI 13:39
PROVIDERS: PCP Internal Medicine; Visit Provider Orthopaedic Surgery
DX: M54.41 Lumbago with sciatica, right side (principal); M54.42 Lumbago with sciatica, left side
CPT/HCPCS: 72148

== ENCOUNTER 2024-06-14 10:10 | Outpatient (AMB) | payer MEDICARE, SELFPAY ==
[2024-06-14 10:13] VITALS: BMI 31.9
--- NOTE | 2024-06-14 10:13 | A.OFFVIS_ITS ---
Vital Signs 06/14/24 10:13 Height 4 ft 11 in Weight 158 lb BMI 31.9 Intake Visit Reasons: OV-MRI Lumbar Spine- follow up review Intake Note: Elisabeth is a 84 yo female who presents today with complaints of progressively worsening low back pain which radiates down both of her legs as well as right knee pain. She states that over the last year she has developed ?burning and numbness? in both of her lower extremities. She has done physical therapy exercises which aggravated her pain. She also reports intermittent weakness in her lower extremities. She has taken Tylenol which gives her minimal relief. She is not able to take anti-inflammatory medicines because she is on Eliquis. She did have cortisone injections given into her low back several years ago which gave her temporary relief. Allergies No Known Allergies Allergy (Verified 06/14/24 10:22) Medication List - Last Reconciled 06/14/24 by Dane Dawn MD albuterol sulfate 90 mcg/actuation 2 puffs inhalation Q4-6H PRN 30 days amitriptyline 10 mg PO DAILY apixaban (Eliquis) 2.5 mg PO BID cholecalciferol (vitamin D3) 1,250 mcg PO QWEEK cyclobenzaprine 10 mg PO BEDTIME fluticasone propionate 50 mcg/actuation (Flonase Allergy Relief) 1 spray intranasal BID lidocaine 4% 1 patch topical DAILY PRN loratadine (Claritin) 10 mg PO DAILY losartan 50 mg PO DAILY 30 days metoprolol succinate ER 25 mg PO DAILY pantoprazole 40 mg PO DAILY walker As directed [facility] Medical History Bronchitis Asthma Allergic rhinitis Cough 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 Son No problems noted. Daughter No problems noted. 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) Vision needs: No Physical Exam Vital Signs: BMI result Body Mass Index 31.9 Const Other: Well-nourished well-developed very friendly female awake alert and oriented x3 in no acute distress Back/Spine/Pelvis Other: Low back examination shows bilateral paraspinal muscle tenderness, positive s traight leg raise tests bilaterally at 70 degrees Results Reviewed Results Reviewed: MRI of the patient's lumbar spine shows evidence of diffuse degenerative disc disease as well as lumbar stenosis Assessment & Plan Assessment & Plan (1) Lumbar stenosis: Code(s): M48.061 - Spinal stenosis, lumbar region without neurogenic claudication Category: Medical Plan Ms. Darling presents with low back pain which radiates into both of her legs due to degenerative disc disease as well as lumbar stenosis. Thus, I will refer her to the neurosurgery department here at [facility] for further information regarding her treatment options. She will contact me prior to that appointment should her symptoms worsen in any way. Feel free to call me at any time should questions regarding her orthopedic management arise. I spent 20 minutes in reviewing the patient's records and imaging studies, seeing the patient and documenting in the medical record. Orders: Referrals Neuro Spine Referral M48.061 - Spinal stenosis, lumbar region without neurogenic claudication Coding Level of Care Code Est Pt Level 3 (16317) Complex EM visit Add On G2211 Diagnoses Lumbar stenosis M48.061
== END 2024-06-14 10:39 | disposition home or self-care (01) ==
PROVIDERS: PCP Internal Medicine; Visit Provider Orthopaedic Surgery
DX: M48.061 Spinal stenosis, lumbar region without neurogenic claudication (principal)
CPT/HCPCS: 99213; G2211

== ENCOUNTER → 2024-06-14 10:10 | Outpatient (BNVA) | payer MEDICARE, SELFPAY | PROVIDERS: PCP Internal Medicine; Visit Provider Orthopaedic Surgery | DX: M48.061 Spinal stenosis, lumbar region without neurogenic claudication (principal) | CPT/HCPCS: 99212 ==

== ENCOUNTER 2024-07-04 13:48 | Outpatient (AMB) | payer MEDICARE, SELFPAY ==
--- NOTE | 2024-07-04 13:55 | A.SPINEOV_ITS ---
Intake Visit Reasons: Low back pain/numbness right leg Intake Note: Mrs. Darling is here today c/o low back pain/numbness of the right leg. 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 She is a very nice 84-year-old female who had a fall on March 04 and since that time has had severe right knee pain. The majority of her pain is localized over the right knee. There is some burning sensation and tingling that can go down into her anterior tibial region associated with it as well. Denies any pain on the left side. She has been dealing with this pain using Eliquis and generally just trying to modify her activities. You did do a cortisone injection for her at 1 point and that gave her about a month of significant relief. Because of the burning and numbness it sounds like an MRI was ordered this showed multilevel degenerative d isc disease and she was sent today to see us for an evaluation. She denies any back pain. She denies any severe radicular-type symptoms starting in the back radiating down the leg. The majority of the pain is localized around the right knee. If she bends her knee/leg out laterally she can make the pain significantly worse. PMH: She is reasonably healthy, she has history of hypertension, leukopenia, asthma, DVT on Eliquis for life, osteoporosis, cholecystectomy, cataract surgery Social hx: She has not smoke, drink use any recreational drugs Medications: Losartan, amitriptyline, albuterol, vitamin-D, Eliquis, Claritin, metoprolol, pantoprazole, Motrin Allergies: None Physical exam: She is awake alert oriented no acute distress, on motor exam she is very limited to testing because of the pain over her right knee. The areas very swollen and she was having a hard time just bending it to do motor testing so I really could not test her much. The distal foot strength appears normal. Sensation is normal to light touch. Left side is full strength normal reflexes. Imaging review: She has a scoliotic curvature seen on her lumbar MRI and lumbar x-ray done here at [facility]. There is vrjh-jo-jazzbues stenosis at multiple levels, there is compression of the right L5 nerve root in the lateral recess. She has a degenerative spondy at L5-S1. Impression: 84-year-old female presents for evaluation of right knee pain after a fall. There is a component of burning and tingling that starts from about her superior tibial area that radiates down into her anterior tibial region. The primary pain generator however his the localized pain over the knee compartment. It is so tender right now I could barely examine her and it is very swollen. She did have tremendous relief from the cortisone injection that you did for her. It lasted for about a month. She is interested in getting another 1 if possible. I reviewed her MRI in her clinical situation and although she does have some tingling going down the anterior aspect of her tibial region, I think most of the burning pain that she is getting his coming from just localize tissue swelling around the knee and not nerve related. The tingling could be part of the peroneal nerve just being irritated locally as it does come along the lateral edge of the knee just near the fibula. She does not have any of the classic symptoms of an L5 nerve root radiculopathy such as buttock pain, anterior groin pain, posterolateral thigh pain. I think most of the things we are seeing her low back are incidental and chronic findings that she has had for years and are not likely related to the fall. For these reasons, I do not think she needs an operation to fix the findings in her lumbar spine. I told her to follow up with your office to see if there was anymore imaging or another cortisone injection could be done to help her as the pain is affecting her ability to mobilize. Thank you for allowing us to care for your patient. The total time spent with this visit with this patient was 45 minutes reviewing history, physical exam, lumbar imaging review, and implementation of treatment plan or further diagnostic testing Orlando Nieto MD,PhD [facility] Coding Level of Care Code New Pt Level 4 (88516) Diagnoses Knee pain, right M25.561
== END 2024-07-04 14:31 | disposition home or self-care (01) ==
PROVIDERS: PCP Internal Medicine; Referring Provider Orthopaedic Surgery; Visit Provider Physician Assistant
DX: M25.561 Pain in right knee (principal)
CPT/HCPCS: 99204

== ENCOUNTER → 2024-07-04 13:48 | Outpatient (BNVA) | payer MEDICARE, SELFPAY | PROVIDERS: PCP Internal Medicine; Visit Provider Physician Assistant | DX: M25.561 Pain in right knee (principal); M54.50 Low back pain, unspecified; R20.0 Anesthesia of skin | CPT/HCPCS: 99202 ==

== ENCOUNTER 2024-08-03 12:44 | Outpatient (AMB) | payer MEDICARE, SELFPAY ==
--- NOTE | 2024-08-03 12:45 | MHC.OFFVIS ---
Intake Visit Reasons: Right knee pain Intake Note: Elisabeth is an 84 year old female who presents with complaints of progressively worsening right knee pain. She describes her pain as sharp in nature. Her pain has gotten worse over the last few months in spite of continued non operative treatments. She has tried Tylenol which gives her minimal relief. She is not able to take anti-inflammatory medicines because she is on Eliquis. She has done physical therapy exercises which aggravated her pain. Allergies No Known Allergies Allergy (Verified 08/03/24 12:46) Medication List - Last Reconciled 08/03/24 by Dane Dawn MD albuterol sulfate 90 mcg/actuation 2 puffs inhalation Q4-6H PRN 30 days amitriptyline 10 mg PO DAILY apixaban (Eliquis) 2.5 mg PO BID cholecalciferol (vitamin D3) 1,250 mcg PO QWEEK cyclobenzaprine 10 mg PO BEDTIME fluticasone propionate 50 mcg/actuation (Flonase Allergy Relief) 1 spray intranasal BID lidocaine 4% 1 patch topical DAILY PRN loratadine (Claritin) 10 mg PO DAILY losartan 50 mg PO DAILY 30 days metoprolol succinate ER 25 mg PO DAILY pantoprazole 40 mg PO DAILY walker As directed [facility] Medical History Bronchitis Asthma Allergic rhinitis Cough 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 Son No problems noted. Daughter No problems noted. 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) Vision needs: No Physical Exam Const Other: Well-nourished well-developed very friendly female awake alert and oriented x3 in no acute distress Extrem Other: Bilateral lower extremity examination shows good capillary refill, no skin lesions noted, normal sensation light touch Right knee examination shows a minimal effusion, palpable crepitus with range of motion, pain with range of motion, no instability Office Procedures AMB Joint Injection/Aspiration Joint Injection/Aspiration Primary Site: right knee Prep: site was prepped using aseptic technique Injected: 40 mg of, DepoMedrol and 1% plain lidocaine Procedure: The patient tolerated the procedure well Coding - Large joint Procedure code (CPT) selection complete Results Reviewed Results Reviewed: X-rays of the patient's right knee taken previously show joint space narrowing, subchondral sclerosis, no acute bony abnormalities Assessment & Plan Assessment & Plan (1) Arthritis of right knee: Code(s): M17.11 - Unilateral primary osteoarthritis, right knee Category: Medical (2) Knee pain, right: Code(s): M25.561 - Pain in right knee Category: Medical Plan Ms. Darling presents with right knee pain due to degenerative joint disease. I had a lengthy discussion with the patient regarding the treatment options. She wishes to hold off on total knee replacement surgery for as long as possible. I agree with this plan. The risks and benefits of a right knee cortisone injection were discussed at length with the patient. The patient wished to proceed. She tolerated the injection well. She will continue with her home exercise program. She will contact me prior to her follow-up appointment in 3 months should any questions or concerns arise. Feel free to call me at any time should questions regarding her orthopedic management arise. I spent 21 minutes in reviewing the patient's records and imaging studies, seeing the patient and documenting in the medical record. Orders: Orders AMB Joint Injection/Aspiration Today M17.11 - Unilateral primary osteoarthritis, right knee Coding Level of Care Code Est Pt Level 3 (53586) Complex EM visit Add On G2211 Diagnoses Arthritis of right knee M17.11 Knee pain, right M25.561 CPT Codes Coding - Large joint: 09737 - Large joint ([id number])
== END 2024-08-03 13:08 | disposition home or self-care (01) ==
PROVIDERS: PCP Internal Medicine; Visit Provider Orthopaedic Surgery
DX: M17.11 Unilateral primary osteoarthritis, right knee (principal)
CPT/HCPCS: 20610; 99213

== ENCOUNTER → 2024-08-03 12:44 | Outpatient (BNVA) | payer MEDICARE, SELFPAY | PROVIDERS: PCP Internal Medicine; Visit Provider Orthopaedic Surgery | DX: M17.11 Unilateral primary osteoarthritis, right knee (principal) | CPT/HCPCS: 20610; 99212; J1010; J2003 ==

== ENCOUNTER 2024-08-08 13:27 | Outpatient (AMB) | payer MEDICARE, SELFPAY ==
--- NOTE | 2024-08-08 13:28 | A.OFFPC_ITS ---
Vital Signs 08/08/24 13:29 Height 4 ft 11 in Weight 158 lb 2 oz BMI 31.9 BP 120/70 Blood Pressure Location Rt brachial Position Sitting Intake Visit Reasons: 3mth f/u aly 07/03 Intake Note: Patient is here to follow up on Asthma, HTN. 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 Patient reports that she was seen by the orthopedist Dr. Dawn and Dr. Clarke. She had an MRI of her spine and an x-ray of her right knee. She reports she received 2 injections to the right knee the last injection was on the 6 of this month. She reports her pain went from a 10 to a 7 although pain is increasing over the past few days. She denies any new injuries. She is still able to walk with a cane. She gave up driving years ago. She is still grocery shopping, performing daily household activities and cooking. She is not taking anything for the pain other than the injections she is receiving by the orthopedic surgeon. Pain she reports she would like a referral for 2nd opinion to [facility] in [place]. She reports she is currently on Eliquis for DVT to the right femoral vein and she would like a refill. Patient admits to some constipation and had a good bowel movement today after taking milk of magnesium. Patient reports she had a mammogram and colonoscopy years ago and does not to repeat. Patient reports she received the flu and RSV vaccine 2 weeks ago with her . Patient denies any fevers, nausea vomiting, abdominal pain, recent falls or injuries or any other symptoms complaints or concerns at this time. 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 Son No problems noted. Daughter No problems noted. 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 Easton Peña, Kim Smith, Irvin Arvizu and colleagues, with an educational robina from [employer]. Review of Systems Const All systems reviewed & are unremarkable except as noted in HPI and below Physical exam (Primary Care) Vital Signs: Last Vital Signs BP 120/70 08/08/24 13:29 BMI result Body Mass Index 31.9 Tobacco/Smoking Status: Tobacco use Status Tobacco use date assessed 08/08/24 08/08/24 13:36 Patient Tobacco Use Status Never used Tobacco 08/08/24 13:36 e-Cigarette/Vaping Use Never Used 08/08/24 13:36 Thrive Assessment: Date of Thrive Assessment Date Thrive assessed 10/15/23 08/08/24 13:36 Const Other: Appearance: Alert. Oriented X3. No acute distress. ? Head: Normal external exam. Normocephalic. Atraumatic.? Eyes: EOMI. Conjunctiva and sclera normal. Eyelids normal. ? ENT: Moist mucous membranes. Normal Voice. Neck: Normal inspection. Neck supple. FROM. CVS: Normal heart rate and rhythm. Heart sound normal. No murmurs noted. Pulses normal throughout. Respiratory: No respiratory distress. Painless inspiration. Breath sounds normal. No wheezes/rales/rhonchi noted. Chest nontender. ? No accessory muscle usage noted or decreased air movement noted. Abdomen: Soft and nontender. Bowel sounds normal in all 4 quadrants. No distention noted.? No organomegaly noted.? Back: ?No CVA tenderness.? Full range of motion noted. Skin: Skin warm and dry.? Normal skin color.? No rashes noted. Extremities: To right knee patient has STS, TTP to the medial and lateral asopect of the knee with Decreased range of motion with extension. No lower extremity edema. ?No calf tenderness is noted. No pitting edema noted. No erythema, fluctuance or signs of infection. Otherwise all other extremities exhibit normal range of motion nontender. Neuro: Oriented X 3.? No motor deficit.? No sensory deficit.? Reflexes normal. Patient walking with a cane. Coding Level of Care Code Est Pt Level 4 (82905) Complex EM visit Add On G2211 Diagnoses Arthritis of right knee M17.11 Assessment & Plan Assessment & Plan (1) Arthritis of right knee: Code(s): M17.11 - Unilateral primary osteoarthritis, right knee Category: Medical Plan: Patient will be referred to [facility] for 2nd opinion per request for her right knee pain. Medications: Refilled apixaban (Eliquis) 2.5 mg PO BID 180 tabs 1RF Patient Instructions: Will refill the patient's Eliquis. Patient understands to take 2.5 mg p.o. b.i.d for history of DVT to right femoral vein.
[2024-08-08 13:29] VITALS: BP 120/70; BMI 31.9
== END 2024-08-08 14:27 | disposition home or self-care (01) ==
PROVIDERS: PCP Internal Medicine; Visit Provider Internal Medicine
DX: M17.11 Unilateral primary osteoarthritis, right knee (principal)

== ENCOUNTER → 2024-08-08 13:27 | Outpatient (BNVA) | payer MEDICARE, SELFPAY | PROVIDERS: PCP Internal Medicine; Visit Provider Internal Medicine | DX: M17.11 Unilateral primary osteoarthritis, right knee (principal) | CPT/HCPCS: 99212 ==

== ENCOUNTER 2024-11-11 08:29 | Outpatient (AMB) | payer MEDICARE, SELFPAY ==
[2024-11-11 08:59] VITALS: BP 122/80; PULSE 92; TEMP 36.9; O2SAT 98
--- NOTE | 2024-11-11 08:59 | MHC.OFFWIV ---
Intake Vital Signs 11/11/24 08:59 Weight 154 lb BP 122/80 Blood Pressure Location Rt brachial Position Sitting Pulse 92 Pulse Source Pulse Oximeter Temp 98.4 F Temp Source Oral Pulse Oximetry (%) 98 Oxygen Delivery Method Room Air Intake Visit Reasons: EP Chest congestion, cough Intake Note: Patient here for cough and chest congestion that has been present for about 4 days. Patient Tobacco Use Status: Never used Tobacco Allergies No Known Allergies Allergy (Verified 11/11/24 09:00) Do you need a note to return to daycare/school/sports/work: No HPI EP Chest congestion, cough HPI Details This is an 84-year-old female patient who presents to the walk-in clinic today with a 4-5 day history of worsening cough and cold symptoms. She states that her cough and chest congestion having keeping her up at night. She states her ribs/chest are sore from coughing. She has not been able to sleep due to the cough. She denies any fever or chills. Denies any GI symptoms. Has an albuterol inhaler at home which she has used a few times. Also has used saline spray, [id number] cough syrup, and Claritin without any relief. COVID test at home was negative. 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 Son No problems noted. Daughter No problems noted. 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) Vision needs: No Review of Systems Const All systems reviewed & are unremarkable except as noted in HPI and below Physical Exam Vital Signs: Last Vital Signs Temp 98.4 F 11/11/24 08:59 Pulse 92 11/11/24 08:59 BP 122/80 11/11/24 08:59 Pulse Ox 98 11/11/24 08:59 Oxygen Delivery Method Room Air 11/11/24 08:59 Const General: cooperative HEENT Head: Yes normal to inspection Ears: hearing grossly normal bilaterally General nose exam: Normal external nose present Face and sinus: Yes normal facial exam Mouth: Normal oral and palatal mucosa present Throat: Yes postnasal drainage Neck Neck: Yes no lymphadenopathy Resp Effort & Inspection: Actively coughing Quality: actively coughing Auscultation: bronchial breath sounds bilateral Cardio Rate: regular rate Rhythm: regular rhythm Skin General skin exam: no rashes or lesions noted Extrem General: Yes capillary refill normal and Yes no clubbing, cyanosis or edema Psych Appearance: grossly normal Mental Status: mental status grossly normal Speech and movement: Normal speech and movement present Assessment & Plan Assessment & Plan (1) Upper respiratory infection: Code(s): J06.9 - Acute upper respiratory infection, unspecified Qualifiers: URI type: unspecified URI Qualified Code(s): J06.9 - Acute upper respiratory infection, unspecified Plan: Likely an asthmatic bronchitis. Will start her on a short course of prednisone and also antibiotics. We reviewed indications, use, possible side effects. Denies viral testing. Covid at home was negative x2. She may continue to use albuterol prn. Advised to go to the ED if she develops any shortness of breath, fever/chills. (2) Nonproductive cough: Code(s): R05.8 - Other specified cough Plan: As noted above. Medications: New azithromycin For 250 mg dose pack: take 500 mg today (day 1), then 250 mg for 4 days (days 2-5) PO 6 tabs 0RF J06.9 - Acute upper respiratory infection, unspecified prednisone 10 mg PO BID 5 days 10 tabs 0RF J06.9 - Acute upper respiratory infection, unspecified, R05.8 - Other specified cough Coding Level of Care Code Est Pt Level 4 (18107) Diagnoses Upper respiratory tract infection, unspecified type J06.9 URI type: unspecified URI Nonproductive cough R05.8
== END 2024-11-11 09:34 | disposition home or self-care (01) ==
PROVIDERS: PCP Internal Medicine; Visit Provider Nurse Practitioner Family
DX: J06.9 Acute upper respiratory infection, unspecified (principal); R05.8 Other specified cough

== ENCOUNTER → 2024-11-11 08:29 | Outpatient (BNVA) | payer MEDICARE, SELFPAY | PROVIDERS: PCP Internal Medicine | DX: J06.9 Acute upper respiratory infection, unspecified (principal); R05.8 Other specified cough | CPT/HCPCS: 99212 ==

== ENCOUNTER 2024-11-14 08:51 | Outpatient (REF) | payer MEDICARE, SELFPAY ==
[2024-11-14 13:39] LABS: Influenza A PCR POSITIVE (Negative); Influenza B PCR NEGATIVE (Negative); Resp Syncy Virus RNA Qual PCR NEGATIVE (Negative); SARS COV2 PCR INHOUSE NEGATIVE (Negative)
== END 2024-11-14 08:52 | disposition home or self-care (01) ==
LOC: HO.LAB 08:51
PROVIDERS: PCP Internal Medicine; Visit Provider Physician Assistant
DX: Z13.89 Encounter for screening for other disorder (principal)
CPT/HCPCS: 0241U; 99212

== ENCOUNTER 2024-11-14 08:51 | Outpatient (AMB) | payer MEDICARE, SELFPAY ==
--- NOTE | 2024-11-14 09:15 | MHC.OFFWIV ---
Intake Vital Signs 11/14/24 09:16 Weight 154 lb BP 126/80 Blood Pressure Location Rt brachial Position Sitting Pulse 62 Pulse Source Pulse Oximeter Temp 97.8 F Temp Source Oral Pulse Oximetry (%) 96 Oxygen Delivery Method Room Air Intake Visit Reasons: EP Cough, chest due to cough, lung Intake Note: Patient here for worsening cough, chest/lung pain. Patient Tobacco Use Status: Never used Tobacco Allergies No Known Allergies Allergy (Verified 11/14/24 09:15) Do you need a note to return to daycare/school/sports/work: No HPI HPI Comments History of Present Illness Details History - The patient is an 84-year-old female presenting with persistent cough and chest congestion, evolving over the past four to five days, and involving albuterol inhaler management at home accompanied by consistent symptoms. - Despite the negative result of a home-administered COVID test, further PCR testing is warranted due to the accuracy variance. - Sinus sprays, OTC cough treatments, and Claritin have been previously used without noted improvement in symptoms. - Recent medicinal interventions at this clinic o 11/11 include a Z-Meet and oral prednisone, without improvement in her symptoms. - I have taken note of ongoing postnasal drip and cough with purulent production alongside past COPD and bronchitis flares. - Left-sided rib pain, exacerbated by coughing or artifactorous movement, could indicate pneumonia or a rib stress injury. - Her pain management is restricted due to concurrent Eliquis therapy, and only includes acetaminophen. - Notable perennial sinus concerns and low efficacy despite benadryl and fluticasone therapy spotlight allergies, though the exact allergic rhinitis triggers are unclear. Physical Exam General: Cooperative, healthy appearing, comfortable and no acute distress Orientation/consciousness: Patient oriented x3 Limitations: No limitations Head: Normal to inspection Ears: Hearing grossly normal bilaterally, external ears normal and TM's normal bilaterally Nose: Normal external nose present, Normal nares present and No nasal discharge present Face and sinus: Normal facial exam and Sinuses tender Mouth: Normal oral and palatal mucosa present and moist mucous membranes Throat: Yes tonsils normal, Yes uvula midline. Posterior oropharynx erythema Eyes: Appearance normal, both eyes and all related structures Neck: Normal visual inspection Respiratory: Clear to auscultation bilaterally. Normal respiratory effort, able to speak in complete sentences, Actively coughing, no respiratory distress, not tachypneic, no tripod positioning and no use of accessory muscles Cardiovascular: Regular rate and rhythm. 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 Son No problems noted. Daughter No problems noted. 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) Vision needs: No Review of Systems Const All systems reviewed & are unremarkable except as noted in HPI and below Physical Exam Vital Signs: Last Vital Signs Temp 97.8 F 11/14/24 09:16 Pulse 62 11/14/24 09:16 BP 126/80 11/14/24 09:16 Pulse Ox 96 11/14/24 09:16 Oxygen Delivery Method Room Air 11/14/24 09:16 Assessment & Plan Assessment & Plan (1) URI, acute: Code(s): J06.9 - Acute upper respiratory infection, unspecified Plan: To address the patient's current symptoms of cough and congestion, comprehensive testing for influenza, COVID-19, and RSV has been initiated to rule out or identify viral infections as etiological factors. The need for further diagnostic imaging is warranted, specifically a chest x-ray to distinguish possible pneumonia, contingent on the availability of functioning diagnostic equipment. Completing the albuterol inhaler prescription and transitioning from prednisone to methylprednisolone appropriately phased to morn-only dosing is reinforced to support respiratory management. Due to Eliquis therapy, analgesic management will proceed with acetaminophen, with further instruction provided on the correct administration of Flonase to optimize relief from sinus symptoms and postnasal drip. If pneumonia is confirmed by x-ray or clinical progression, modification of the antimicrobial regimen will be considered. Patient was informed and verbally consented to the use of an ambient scribe for clinic note documentation during this visit Orders: Orders XR chest 2V Today R05.9 - Cough, unspecified SARS-CoV2/FLU/RSV Today J06.9 - Acute upper respiratory infection, unspecified Medications: New benzonatate 200 mg PO TID PRN 10 caps 0RF cough methylprednisolone PO PER PKG DIR for 6 days 21 ea 0RF Coding Level of Care Code Est Pt Level 4 (84811) Diagnoses URI, acute J06.9
[2024-11-14 09:16] VITALS: BP 126/80; PULSE 62; TEMP 36.6; O2SAT 96
== END 2024-11-14 10:01 | disposition home or self-care (01) ==
PROVIDERS: PCP Internal Medicine; Visit Provider Physician Assistant
DX: J06.9 Acute upper respiratory infection, unspecified (principal)

== ENCOUNTER 2024-11-14 09:48 | Outpatient (REF) | payer MEDICARE, SELFPAY ==
--- NOTE | ~2024-11-14 | XR_ITS ---
CLINICAL HISTORY: R05.9 - Cough, unspecified Chest two-view Comparison: None Findings: Clear lungs. No consolidation, venous distention, pulmonary edema, pleural effusion or pneumothorax. Normal heart size and mediastinal contour. Increased kyphosis with mild reverse S shaped thoracolumbar scoliosis. Generalized thoracolumbar spondylosis. IMPRESSION: No acute cardiopulmonary process. This document has been electronically signed by: Shon Ontiveros MD on 11/14/2024 10:37:07
== END 2024-11-14 09:49 | disposition home or self-care (01) ==
LOC: HO.HMGCX 09:48
PROVIDERS: PCP Internal Medicine; Visit Provider Physician Assistant
DX: R05.9 Cough, unspecified (principal); J06.9 Acute upper respiratory infection, unspecified
CPT/HCPCS: 0241U; 71046; 99212

== ENCOUNTER → 2024-11-14 09:52 | Outpatient (BNV) | payer MEDICARE, SELFPAY | PROVIDERS: PCP Internal Medicine; Visit Provider Radiology Diagnostic Radiology | DX: R05.9 Cough, unspecified (principal) | CPT/HCPCS: 71046 ==

== ENCOUNTER 2024-11-15 22:51 | Emergency (ER) | payer MEDICARE, SELFPAY ==
--- NOTE | ~2024-11-15 | XR_ITS ---
CLINICAL HISTORY: cough flu 2 view chest x-ray Comparison: Chest x-ray from 12/15/2023 Findings: Mild right infrahilar opacities as can be seen with pneumonitis. Mild emphysematous changes are redemonstrated. No pneumothorax or pleural effusion. Imaged mediastinum and imaged osseous structures appear unchanged. IMPRESSION: New mild right infrahilar opacities concerning for pneumonitis. This document has been electronically signed by: Buddy Orellana MD on 11/16/2024 00:31:57
[2024-11-15 23:33] VITALS: BP 110/78; PULSE 106; RESP 18; TEMP 36.9; O2SAT 99; BMI 30.5
[2024-11-16 00:18] LABS: Alanine Aminotransferase 17 U/L (0-31); Albumin Level 4.3 g/dL (3.5-5.0); Alkaline Phosphatase 49 U/L (39-117); Anion Gap 13 (12-20); Aspartate Amino Transferase 15 U/L (5-31); Bilirubin Total 0.3 mg/dL (0.0-1.0); Blood Urea Nitrogen 25 mg/dL (9-16); Calcium 9.2 mg/dL (8.4-10.2); Carbon Dioxide 19 mmol/L (22-29); Chloride 108 mmol/L (96-108); Creatinine Clr Calc Pharmacy 33.4; Estimated Glomerular Filt Rate 48; Glucose Random 88 mg/dL (60-115); Sodium 136 mmol/L (135-145); Total Protein 7.7 g/dL (6.5-8.0)
[2024-11-16 00:29] LABS: Basophils Percent Auto 0.3 % (0-2); Eosinophils Absolute Auto 0.1 X10*3/uL (0.0-0.4); Eosinophils Percent Auto 1.1 % (0-4); Hematocrit 39.4 % (37.0-47.0); Hemoglobin 13.2 g/dl (12.0-16.0); Imm Gran Abs Auto 0.19 X10*3/uL (0.00-0.03); Imm Gran Pct Auto 2.9 % (0.0-0.4); Lymphocytes Absolute Auto 1.8 X10*3/uL (1.2-4.9); MANUAL DIFF FLAG SCAN; Mean Corpuscular HGB Conc 33.5 g/dl (31.0-35.0); Mean Corpuscular Hemoglobin 29.1 pg (27.0-33.0); Mean Platelet Volume 11.4 fL (9.4-12.3); Monocytes Absolute Auto 2.7 X10*3/uL (0.1-1.2); Monocytes Percent Auto 41.5 % (2-11); Neutrophils Absolute Auto 1.7 x10*3/uL (2.0-8.3); Neutrophils Percent Auto 26.2 % (45-73); Platelet Count 187 X10*3/uL (160-400); Red Blood Count 4.53 X10*6/uL (4.20-5.50); Red Cell Distribution Width 14.8 % (11.0-16.0); SCAN SMEAR FLAG 1; White Blood Count 6.5 X10*3/uL (4.8-10.8)
[2024-11-16 00:30] LABS: SLIDE REVIEW VERIFIED
[2024-11-16 04:22] VITALS: BP 174/82; PULSE 108; RESP 20; TEMP 36.4; O2SAT 99
[2024-11-16] MEDS: guaiFEN/Codeine SF 200/20/10ML 10 ML LIQUID PO (05:08)
[2024-11-16 05:49] LABS: Influenza A PCR POSITIVE (Negative); Influenza B PCR NEGATIVE (Negative); Resp Syncy Virus RNA Qual PCR NEGATIVE (Negative); SARS COV2 PCR INHOUSE NEGATIVE (Negative)
--- NOTE | 2024-11-16 05:52 | ED.URI ---
HPI - URI/Sore Throat General Chief Complaint: Upper Respiratory Symptoms Stated Complaint: ?Flu like symptoms Time Seen by Provider: 11/16/24 04:44 Source: patient and family Mode of arrival: ambulatory Limitations: no limitations History of Present Illness ED Provider: DR. Valle HPI Narrative: 84-year-old female came in for evaluation of flu-like symptoms, generalized body ache, sneezing, coughing, chest pain with coughing, epigastric pain with coughing, patient was seen and evaluated at urgent care was prescribed Z-Meet, prednisone, and albuterol inhaler patient returned to the ED for persistent coughing that patient can not sleep at night. Related Data Home Medications ?Medication ?Instructions ?Recorded ?Confirmed loratadine 10 mg tablet (Claritin) 10 mg PO DAILY 12/31/23 08/03/24 Previous Rx's ?Medication ?Instructions ?Recorded fluticasone propionate 50 1 spray intranasal BID #16 grams 08/31/22 mcg/actuation nasal spray,suspension (Flonase Allergy Relief) walker #1 ea 12/26/22 albuterol sulfate 90 mcg/actuation 2 puff inhalation Q4-6H PRN cough 12/07/23 aerosol inhaler and wheezing 30 days #8.5 grams lidocaine 4 % topical patch 1 patch topical DAILY PRN pain #15 03/18/24 ea cyclobenzaprine 10 mg tablet 10 mg PO BEDTIME #14 tabs 06/15/24 cholecalciferol (vitamin D3) 1,250 1,250 mcg PO QWEEK #12 caps 07/18/24 mcg (50,000 unit) capsule amitriptyline 10 mg tablet 10 mg PO DAILY #90 tabs 08/02/24 apixaban 2.5 mg tablet (Eliquis) 2.5 mg PO BID #180 tabs 08/08/24 pantoprazole 40 mg tablet,delayed 40 mg PO DAILY #90 tabs 08/27/24 release losartan 50 mg tablet 50 mg PO DAILY hypertension 30 09/30/24 days #90 tabs metoprolol succinate 25 mg 25 mg PO DAILY #90 tabs 10/09/24 tablet,extended release 24 hr azithromycin 250 mg tablet See Rx Instructions PO .COMPLEX #6 11/11/24 tabs prednisone 10 mg tablet 10 mg PO BID 5 days #10 tabs 11/11/24 benzonatate 200 mg capsule 200 mg PO TID PRN cough #10 caps 11/14/24 methylprednisolone 4 mg tablets in See Rx Instructions PO PER PKG DIR 11/14/24 a dose pack #21 ea codeine 10 mg-guaifenesin 200 mg/5 5 ml PO Q6H PRN cough #473 mL 11/16/24 mL oral liquid Allergies Allergy/AdvReac Type Severity Reaction Status Date / Time No Known Allergies Allergy Verified 11/15/24 23:37 Review of Systems Review of Systems: All other systems are reviewed and are negative Constitutional: Reports as per HPI and Reports no additional constitutional complaints Eyes: Reports as per HPI and Reports no additional eye complaints Reports system reviewed and no additional complaints, except as documented Cardiovascular: Reports as per HPI and Reports no additional cardiovascular complaints Respiratory: Reports as per HPI and Reports no additional respiratory complaints Gastrointestinal: Reports as per HPI and Reports no additional gastrointestinal complaints Genitourinary: Reports no additional female genitourinary complaints Musculoskeletal: Reports no additional musculoskeletal complaints Skin/Breast: Reports system reviewed and no additional complaints, except as docu Psychiatric: Reports no additional psychiatric complaints Endocrine: Reports no additional endocrine complaints Hematologic/Lymphatic: Reports no additional hematologic/lymphatic complaints Allergic/Immunologic: Reports no additional allergic/immunologic complaints Reports system reviewed and no additional complaints, except as documented and Reports Abnormal speech present [facility], [facility] Past Medical History Medical History Bronchitis Asthma Allergic rhinitis Cough 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 Son No problems noted. Daughter No problems noted. 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 Blood pressure elevated. Heart rate normal. Respiratory rate normal. Temperature normal. Oxygen saturation normal. Appearance: Alert. Oriented X3. No acute distress. Head: Normal external exam. Normocephalic. Atraumatic. No Nicholson signs noted. No raccoon eyes noted Eyes: PERRLA. EOMI. Conjunctiva and sclera normal. Eyelids normal. ENT: TM's Normal. Pharynx normal. Uvula midline. Moist mucous membranes. No trismus noted. No drooling noted. No muffled voice noted. Neck: Normal inspection. Neck supple. FROM. No adenopathy. Thyroid Normal. No meningeal signs. No neck mass noted. CVS: Normal heart rate and rhythm. Heart sound normal. No murmurs noted. Pulses normal throughout. Respiratory: No respiratory distress. Painless inspiration. Breath sounds normal. No wheezes/rales/rhonchi noted. Chest nontender. No accessory muscle usage noted or decreased air movement noted. Abdomen: Soft and nontender. Bowel sounds normal in all 4 quadrants. No distention noted. No organomegaly noted. No visible injury noted. Back: No CVA tenderness. Full range of motion noted. Skin: Skin warm and dry. Normal skin color. Normal skin turgor. No rashes/lesions/lacerations noted. Extremities: No lower extremity edema. Extremities exhibit normal range of motion. Extremities nontender. Neuro: Oriented X 3. Cranial nerve exam: II-XII are grossly intact No motor deficit. No sensory deficit. Reflexes normal. Course Reevaluation(s) Reevaluation #1: Symptomatic influenza a for 5 days, satting 99% on room air with respiratory rate of 20 patient's main problem is persistent coughing that she can not sleep at night and causing chest pain with coughing. Patient was given codeine syrup for controlling her cough which successfully stopped the coughing. Will prescribe codeine. Time: 05:55 Medications Administered Generic Name Dose Route Start Last Admin Trade Name Freq PRN Reason Stop Dose Admin Guaifenesin/Codeine Phosphate 10 ml 11/16/24 04:44 11/16/24 05:08 Guaifen/Codeine Sf 200/20/10ml 10 Ml Liquid PO 10 ml Q6H PRN Administration Cough Medical Decision Making Differential Diagnosis Differential Diagnoses: The differential diagnosis associated with the presentation includes (Pneumonia, pneumothorax, pleural effusion, influenza, COVID-19 infection, RSV, electrolyte derangement, severe anemia.) Admission/Observation Consideration of admission/observation: Escalation of care including admission/observation considered Lab Data MDM Lab Attestation statement: I reviewed the patient's lab results. 11/15/24 23:58 11/15/24 23:58 Labs: Lab Results 11/15/24 11/16/24 Range/Units 23:58 05:07 WBC 6.5 (4.8-10.8) X10*3/uL RBC 4.53 (4.20-5.50) X10*6/uL Hgb 13.2 (12.0-16.0) g/dl Hct 39.4 (37.0-47.0) % MCV 87.0 (80.0-98.0) fL MCH 29.1 (27.0-33.0) pg MCHC 33.5 (31.0-35.0) g/dl RDW 14.8 (11.0-16.0) % Plt Count 187 (160-400) X10*3/uL MPV 11.4 (9.4-12.3) fL Immature Gran % (Auto) 2.9 H (0.0-0.4) % Neut % (Auto) 26.2 L (45-73) % Lymph % (Auto) 28.0 (20-40) % [place] % (Auto) 41.5 H (2-11) % Eos % (Auto) 1.1 (0-4) % Baso % (Auto) 0.3 (0-2) % Lymph # (Auto) 1.8 (1.2-4.9) X10*3/uL [place] # (Auto) 2.7 H (0.1-1.2) X10*3/uL Eos # (Auto) 0.1 (0.0-0.4) X10*3/uL Baso # (Auto) 0.0 (0.0-0.2) X10*3/uL Abs Immat Gran (auto) 0.19 H (0.00-0.03) X10*3/uL Absolute Neuts (auto) 1.7 L (2.0-8.3) x10*3/uL Absolute Nucleated RBC 0.000 (0.0-0.012) X10*3/uL Nucleated RBC % (auto) 0.0 (0.0-0.2) /100WBC Smear Tech's Comments VERIFIED Sodium 136 (135-145) mmol/L Potassium 4.0 (3.3-5.1) mmol/L Chloride 108 (96-108) mmol/L Carbon Dioxide 19 L (22-29) mmol/L Anion Gap 13 (12-20) BUN 25 H (9-16) mg/dL Creatinine 1.09 (0.5-1.4) mg/dL Estim Creat Clear Calc 33.4 Estimated GFR 48 Random Glucose 88 (60-115) mg/dL Calcium 9.2 (8.4-10.2) mg/dL Total Bilirubin 0.3 (0.0-1.0) mg/dL AST 15 (5-31) U/L ALT 17 (0-31) U/L Alkaline Phosphatase 49 (39-117) U/L Total Protein 7.7 (6.5-8.0) g/dL Albumin 4.3 (3.5-5.0) g/dL Influenza Type A (PCR) POSITIVE A (Negative) Influenza Type B (PCR) NEGATIVE (Negative) RSV RNA Qual (PCR) NEGATIVE (Negative) SARS-CoV-2 RNA (RT-PCR) NEGATIVE (Negative) Independent Interpretation I performed an independent interpretation of an: Plain X-Ray ( Chest:New mild right infrahilar opacities concerning for pneumonitis.) Radiology Impression Discussion of test interpretation with radiology: I have reviewed the radiologist's reading. Discharge Plan Discharge Clinical Impression: Influenza A, Cough Patient Disposition: Home, Self-Care Instructions: Influenza (ED) Prescriptions: New codeine-guaifenesin 10-200 mg/5 mL liquid 5 ml PO Q6H PRN (Reason: cough) Qty: 473 0RF No Action (DME) mikayla Misc See Rx Instructions .Route Qty: 1 0RF Rx Instructions: As directed albuterol sulfate 90 mcg/actuation HFA aerosol inhaler 2 puff inhalation Q4-6H PRN (Reason: cough and wheezing ) 30 Days Qty: 8.5 2RF cyclobenzaprine 10 mg tablet 10 mg PO BEDTIME Qty: 14 0RF cholecalciferol (vitamin D3) 1,250 mcg (50,000 unit) capsule 1,250 mcg PO QWEEK Qty: 12 1RF amitriptyline 10 mg tablet 10 mg PO DAILY Qty: 90 1RF pantoprazole 40 mg tablet,delayed release (DR/EC) 40 mg PO DAILY Qty: 90 1RF losartan 50 mg tablet 50 mg PO DAILY 30 Days Qty: 90 1RF metoprolol succinate 25 mg tablet extended release 24 hr 25 mg PO DAILY Qty: 90 0RF fluticasone propionate [Flonase Allergy Relief] 50 mcg/actuation spray,suspension 1 spray intranasal BID Qty: 16 0RF Rx Instructions: administer into each nostril lidocaine 4 % adhesive patch,medicated 1 patch topical DAILY PRN (Reason: pain) Qty: 15 0RF Eliquis 2.5 mg tablet 2.5 mg PO BID Qty: 180 1RF prednisone 10 mg tablet 10 mg PO BID 5 Days Qty: 10 0RF azithromycin 250 mg tablet See Rx Instructions PO .COMPLEX Qty: 6 0RF Rx Instructions: For 250 mg dose pack: take 500 mg today (day 1), then 250 mg for 4 days (days 2-5) PO loratadine [Claritin] 10 mg tablet 10 mg PO DAILY benzonatate 200 mg capsule 200 mg PO TID PRN (Reason: cough) Qty: 10 0RF methylprednisolone 4 mg tablets,dose pack See Rx Instructions PO PER PKG DIR Qty: 21 0RF Rx Instructions: PO PER PKG DIR for 6 days Referrals: Mustapha Andrew MD [Primary Care Provider] - Print Language: Tajik
[2024-11-16 07:40] VITALS: BP 139/78; PULSE 78; RESP 16; TEMP 36.9; O2SAT 97
== END 2024-11-16 07:42 | disposition home or self-care (01) ==
PROVIDERS: Emergency Provider Emergency Medicine; PCP Internal Medicine
DX: J10.1 Influenza due to other identified influenza virus with other respiratory manifestations (principal); R05.9 Cough, unspecified; Z03.818 Encounter for observation for suspected exposure to other biological agents ruled out; J45.909 Unspecified asthma, uncomplicated; Z79.899 Other long term (current) drug therapy
CPT/HCPCS: 0241U; 36415; 71046; 80053; 85025; 99283

== ENCOUNTER → 2024-11-16 00:01 | Outpatient (BNV) | payer MEDICARE, SELFPAY | PROVIDERS: PCP Internal Medicine; Visit Provider Radiology Neuroradiology | DX: R05.9 Cough, unspecified (principal) | CPT/HCPCS: 71046 ==

== ENCOUNTER 2024-11-24 10:57 | Outpatient (AMB) | payer MEDICARE, SELFPAY ==
[2024-11-24 11:16] VITALS: BP 134/90; PULSE 50; TEMP 36.2; O2SAT 94; BMI 30.5
--- NOTE | 2024-11-24 11:16 | A.OFFPC_ITS ---
Vital Signs 11/24/24 11:16 Height 4 ft 11 in Weight 151 lb BMI 30.5 BP 134/90 H Blood Pressure Location Lt brachial Position Sitting Pulse 50 Pulse Source Pulse Oximeter Temp 97.1 F Pulse Oximetry (%) 94 Oxygen Delivery Method Room Air Intake Visit Reasons: ER on 11/18 Cough/Flu Allergies No Known Allergies Allergy (Verified 11/24/24 11:44) Medication List - Last Reconciled 11/24/24 by Sapphire Price PA-C albuterol sulfate 90 mcg/actuation 2 puffs inhalation Q4-6H PRN 30 days albuterol sulfate 90 mcg/actuation 1 inh inhalation QID PRN amitriptyline 10 mg PO DAILY amoxicillin-pot clavulanate 875-125 mg 1 tab PO BID 10 days apixaban (Eliquis) 2.5 mg PO BID azithromycin For 250 mg dose pack: take 500 mg today (day 1), then 250 mg for 4 days (days 2-5) PO cholecalciferol (vitamin D3) 1,250 mcg PO QWEEK cyclobenzaprine 10 mg PO BEDTIME fluticasone propionate 50 mcg/actuation (Flonase Allergy Relief) 1 spray intranasal BID hydrocodone-homatropine 5-1.5 mg/5 mL (5 mL) (Hycodan) 5 mL PO Q6H PRN lidocaine 4% 1 patch topical DAILY PRN loratadine (Claritin) 10 mg PO DAILY losartan 50 mg PO DAILY 30 days metoprolol succinate ER 25 mg PO DAILY pantoprazole 40 mg PO DAILY prednisone 40 mg (2 x 20 mg) PO DAILY 5 days walker As directed Tobacco use date assessed: 11/24/24 Fall risk assessment: No Falls in past year Last assessed Fall Risk: 11/24/24 Dental Screening Dental Screen Date: 11/24/24 Did you have a dental visit in the last 12 months?: No Did you have a dental problem in the last 6 months where you did not have access to dental care?: No Was dental information given to patient?: No [facility] Medical History Pneumonitis Bronchitis Asthma Allergic rhinitis Cough 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 Son No problems noted. Daughter No problems noted. Social History Household Members: Spouse Housing: Apartment Alcohol intake: current Alcohol intake frequency: a few times a month Patient Tobacco Use Status: Never used Tobacco Tobacco use type: Cigarette e-Cigarette/Vaping Use: Never Used Second Hand Smoke Exposure: No service: No Current occupational status: retired Cognitive needs: No Hearing needs: Yes (hear aide) Vision needs: No Questionnaire PHQ-9 Over the last 2 weeks, how often have you been bothered by any of the following problems? 1. Little interest or pleasure in doing things: not at all 2. Feeling down, depressed, or hopeless: not at all 3. Trouble falling or staying asleep, or sleeping too much: not at all 4. Feeling tired or having little energy: not at all 5. Poor appetite or overeating: not at all 6. Feeling bad about yourself - or that you are a failure or have let yourself or your family down: not at all 7. Trouble concentrating on things, such as reading the newspaper or watching television: not at all 8. Moving or speaking so slowly that other people could have noticed. Or the opposite - being so fidgety or restless that you have been moving around a lot more than usual: not at all 9. Thoughts that you would be better off or of hurting yourself in some way: not at all Total score: 0 Depression Screening Interpretation: Negative Depression Screening Done: Yes 23055 - PHQ-9 Billing: Yes Source: Developed by Drs. Easton Peña, Kim Smith, Irvin Arvizu and colleagues, with an educational robina from [employer]. Thrive Questionnaire Date Thrive assessed: 11/24/24 I am a: Patient What is your living situation today?: I have a steady place to live Within the past 12 months, did the food you bought not last and you didn't have the money to get more?: Never true Within the past 12 months, did you worry whether your food would run out before you got money to buy more?: Never true Do you have trouble paying for medicines?: No Do you have trouble getting transportation to medical appointments?: No Do you have trouble paying your heating and electricity bill?: No Do you have trouble taking care of your child, family member or friend?: No Do you have trouble with day-to-day activities such as bathing, preparing meals, shopping, managing finances, etc.?: No Are you currently unemployed and looking for a job?: No Are you interested in more education?: No Currently or been in a relationship where the following occur: No concerns reported THRIVE Score: 0 AUDIT C Alcohol Use Questionnaire (AUDIT-C) 1. How often do you have a drink containing alcohol?: Never Total Score: 0 Score Reviewed/Action Taken: Yes CHARMAINE-7 AMB Questionnaire CHARMAINE-7 Date CHARMAINE - 7 assessed: 11/24/24 Feeling nervous, anxious, or on edge: 0 = Not at all Not being able to stop or control worryin = Not at all Worrying too much about different things: 0 = Not at all Trouble relaxin = Not at all Being so restless that it is hard to sit still: 0 = Not at all Becoming easily annoyed or irritable: 0 = Not at all Feeling afraid as if something awful might happen: 0 = Not at all Total CHARMAINE-7 score (0-4 normal; 5-9 mild; 10-14 moderate; 15-21 severe): 0 Source: Developed by Drs. Easton Peña, Kim Smith, Irvin Arvizu and colleagues, with an educational robina from [employer]. CHARMAINE-7 Assessment Billing CHARMAINE-7 Assessment Tool: CHARMAINE-7 Assessment 41543 Physical exam (Primary Care) Vital Signs: Last Vital Signs Temp 97.1 F 11/24/24 11:16 Pulse 50 11/24/24 11:16 BP 134/90 H 11/24/24 11:16 Pulse Ox 94 11/24/24 11:16 Oxygen Delivery Method Room Air 11/24/24 11:16 Care Plan Goal for BP management: 130/80 BMI result Body Mass Index 30.5 BMI Assessment/Plan discussion: High BMI High, discussed plan: lifestyle, weight reduction, dietary, physical activity and alcohol moderation Tobacco/Smoking Status: Tobacco use Status Tobacco use date assessed 11/24/24 11/24/24 11:24 Patient Tobacco Use Status Never used Tobacco 11/24/24 11:24 Tobacco use type Cigarette 11/24/24 11:24 e-Cigarette/Vaping Use Never Used 11/24/24 11:24 PHQ-9: PHQ-9 Score PHQ-9: Total score 0 11/24/24 11:42 Depression Screening Interpretation: Negative Thrive Assessment: Date of Thrive Assessment Date Thrive assessed 11/24/24 11/24/24 11:24 Currently or been in a relationship where the following occur: No concerns reported Coding Level of Care Code Est Pt Level 4 (12624) Complex EM visit Add On G2211 Diagnoses Influenza A J10.1 Pneumonitis J98.4 Additional Codes PHQ-9 - 57022 - PHQ-9 Billing: Yes ([id number]) CHARMAINE-7 Assessment Billing - CHARMAINE-7 Assessment Tool: CHARMAINE-7 Assessment 52154 ([id number]) Assessment & Plan Assessment & Plan (1) Influenza A: Code(s): J10.1 - Influenza due to other identified influenza virus with other respiratory manifestations Category: Medical Plan: Patient was positive for influenza A on 11/14/2024 and again on 11/16/2024. Had a chest x-ray at the emergency department on 11/16/2024 which revealed pneumonitis. Was not prescribed any antibiotics was prescribed Robitussin with codeine although they did not have that in stock therefore she has been taking Tessalon Perles with no symptomatic relief. Condition is stable continue to monitor. (2) Pneumonitis: Code(s): J98.4 - Other disorders of lung Category: Medical Plan: Chest x-ray on 11/16/2024 revealed pneumonitis. Will repeat chest x-ray today, CBC, CMP, BNP. Start the patient on Augmentin, Z-Meet for possible pneumonia. Provide albuterol inhaler, prednisone and Hycodan for the patient's cough/shortness of breath. Condition is stable will continue to monitor Plan Plan The patient will be treated with Augmentin and azithromycin for suspected bacterial pneumonia. Hycodin is prescribed for cough relief. Regular use of an albuterol inhaler is encouraged. Repeat chest imaging and blood work will be obtained. Prednisone is continued for anti-inflammatory effect. Communication will follow for assessment and further management adjustments. Orders: Orders XR chest 2V Today R05.3 - Chronic cough Comprehensive Met. Panel Today Z00.00 - Encounter for general adult medical examination without abnormal findings B Type Natriuretic Peptide Today R05.3 - Chronic cough Complete Blood Count Auto Diff Today Z00.00 - Encounter for general adult medical examination without abnormal findings Medications: New amoxicillin-pot clavulanate 875-125 mg 1 tab PO BID 10 days 20 tabs 0RF azithromycin For 250 mg dose pack: take 500 mg today (day 1), then 250 mg for 4 days (days 2-5) PO 6 tabs 0RF albuterol sulfate 90 mcg/actuation 1 inh inhalation QID PRN 6.7 grams 0RF shortness of breath or wheezing prednisone 40 mg (2 x 20 mg) PO DAILY 5 days 10 tabs 0RF hydrocodone-homatropine 5-1.5 mg/5 mL (5 mL) (Hycodan) Partial Fill upon patient request. 5 mL PO Q6H PRN 200 mL 0RF cough Patient Instructions: Patient Instructions - Begin taking Augmentin and Z-Meet as prescribed. - Use the albuterol inhaler regularly to manage symptoms. - Take Hycodin as needed for cough and pain relief. - Complete the ordered chest x-ray and blood work promptly. - Follow up with any worsening symptoms or lack of improvement. - Expect follow-up communication to review treatment progress. Scribe Plan - Not visible on output: History of Present Illness The patient is an 84-year-old female presenting with a persistent cough alongside other respiratory symptoms. Her symptoms began on November 07, progressing despite interventions. She was diagnosed with Influenza A and received a chest x-ray on November 14, initially showing normal findings. However, further imaging on November 16 indicated potential pneumonitis. Previous treatments, including prednisone, have failed to relieve her symptoms, and she has not been administered antibiotics prior to this visit. The patient's respiratory symptoms, including sputum streaking with hemoptysis, thoracic discomfort, and congestion, continue to impact her quality of life. Social History - Experiences limitations in daily activities, requiring assistance with dressing. - Reports significant pain with physical activity due to respiratory symptoms. - No details on employment, housing, or substance use were provided during the conversation. Review of Systems - Respiratory: Reports persistent cough with sputum and occasional blood, chest congestion, dyspnea, and thoracic pain. - General: Denies fevers. Physical Exam Appearance: Alert. Oriented X3. No acute distress. Head: Normal external exam. Normocephalic. Atraumatic. Eyes: Pupils are equal, round, and reactive to light. Extraocular movements intact. Conjunctiva and sclera normal. Eyelids normal. Ears: External auditory canal normal. Tympanic membranes normal. Throat: Pharynx normal. Uvula midline. Moist mucous membranes. Normal voice. No trismus drooling or stridor. Neck: Normal inspection. Neck supple. Full range of motion. No adenopathy. Thyroid Normal. No meningeal signs. No neck mass noted. Cardiovascular: Normal heart rate and rhythm. Heart sound normal. No murmurs noted. Pulses normal throughout. Respiratory: No Respiratory distress noted. Painless inspiration. Breath sounds abnormal with possible wheeze. No rales/rhonchi noted. Chest nontender. No accessory muscle usage noted or decreased air movement noted. Abdomen: Soft and nontender. Bowel sounds normal in all 4 quadrants. No distention noted. No organomegaly noted. No visible injury noted. Back: No costovertebral angle tenderness. Full range of motion noted. Skin: Skin warm and dry. Normal skin color. Normal skin turgor. No rashes/lesions/lacerations noted. Extremities: No lower extremity edema. Extremities exhibit normal range of motion. Extremities nontender. Neuro: Oriented X 3. No motor deficit. No sensory deficit. Reflexes normal. Results - Tests: Initial chest x-ray on November 14 normal; subsequent x-ray on November 16 indicated possible pneumonitis. Plan The patient will be treated with Augmentin and azithromycin for suspected bacterial pneumonia. Hycodin is prescribed for cough relief. Regular use of an albuterol inhaler is encouraged. Repeat chest imaging and blood work will be obtained. Prednisone is continued for anti-inflammatory effect. Communication will follow for assessment and further management adjustments. Patient was informed and verbally consented to the use of an ambient scribe for clinic note documentation during this visit. Discussion Notes I discussed with the patient the likely diagnosis of bacterial pneumonia and the associated need for antibiotics, given the unresolved symptoms and previous lack of antibiotic treatment. The proposed treatment plan, including Augmentin and a Z-Meet, was outlined, along with its benefits in addressing the suspected infection. I explained the use and importance of the albuterol inhaler for symptom relief. We reviewed the need for repeat chest radiography to monitor lung status and potential complications. Further, analgesic options with Hycodin were explained for managing pain linked to coughing. Participation and understanding were confirmed, and the patient consented to the proposed management plan. Arrangements were made for prompt follow-up to reassess her condition. Patient Instructions - Begin taking Augmentin and Z-Meet as prescribed. - Use the albuterol inhaler regularly to manage symptoms. - Take Hycodin as needed for cough and pain relief. - Complete the ordered chest x-ray and blood work promptly. - Follow up with any worsening symptoms or lack of improvement. - Expect follow-up communication to review treatment progress.
== END 2024-11-24 11:58 | disposition home or self-care (01) ==
PROVIDERS: PCP Internal Medicine; Visit Provider Physician Assistant Medical
DX: J10.1 Influenza due to other identified influenza virus with other respiratory manifestations (principal); J98.4 Other disorders of lung

== ENCOUNTER 2024-11-24 10:57 | Outpatient (REF) | payer MEDICARE, SELFPAY ==
--- NOTE | ~2024-11-24 | XR_ITS ---
EXAMINATION: XR CHEST CLINICAL INFORMATION: R05.3 - Chronic cough COMPARISON: Chest x-ray 11/16/2024 TECHNIQUE: 2 views of the chest were obtained. FINDINGS: The lungs are well-expanded and clear acute process. There is left lower lobe infrahilar atelectasis or scarring Heart size and pulmonary vascularity is normal. There is levoscoliosis lumbar spine with moderate spondylosis lower dorsal spine. XR/XR chest 2V IMPRESSION: Left lower lobe infrahilar scarring or atelectasis. Otherwise no acute process seen. Electronically signed by: Filipe Rubio MD 11/24/2024 01:18 PM EST
[2024-11-24 12:41] LABS: Basophils Percent Auto 0.2 % (0-2); Eosinophils Percent Auto 0.2 % (0-4); Hematocrit 36.4 % (37.0-47.0); Imm Gran Abs Auto 0.24 X10*3/uL (0.00-0.03); Imm Gran Pct Auto 3.7 % (0.0-0.4); Lymphocytes Absolute Auto 2.4 X10*3/uL (1.2-4.9); Lymphocytes Percent Auto 36.3 % (20-40); MANUAL DIFF FLAG SCAN; Mean Corpuscular Hemoglobin 29.1 pg (27.0-33.0); Mean Corpuscular Volume 88.3 fL (80.0-98.0); Mean Platelet Volume 11.3 fL (9.4-12.3); Monocytes Absolute Auto 1.3 X10*3/uL (0.1-1.2); Monocytes Percent Auto 20.6 % (2-11); Neutrophils Absolute Auto 2.5 x10*3/uL (2.0-8.3); Platelet Count 192 X10*3/uL (160-400); Red Blood Count 4.12 X10*6/uL (4.20-5.50); Red Cell Distribution Width 14.5 % (11.0-16.0); SCAN SMEAR FLAG 1; White Blood Count 6.5 X10*3/uL (4.8-10.8)
[2024-11-24 12:56] LABS: Alanine Aminotransferase 18 U/L (0-31); Alkaline Phosphatase 68 U/L (39-117); Anion Gap 14 (12-20); Aspartate Amino Transferase 16 U/L (5-31); Bilirubin Total 0.4 mg/dL (0.0-1.0); Blood Urea Nitrogen 10 mg/dL (9-16); Calcium 9.2 mg/dL (8.4-10.2); Carbon Dioxide 19 mmol/L (22-29); Chloride 107 mmol/L (96-108); Estimated Glomerular Filt Rate > 60; Glucose Random 77 mg/dL (60-115); Potassium 4.2 mmol/L (3.3-5.1); Sodium 136 mmol/L (135-145); Total Protein 7.4 g/dL (6.5-8.0)
[2024-11-24 13:02] LABS: B Type Natriuretic Peptide 107 pg/mL (<100)
[2024-11-24 13:20] LABS: SLIDE REVIEW VERIFIED
== END 2024-11-24 10:58 | disposition home or self-care (01) ==
LOC: HO.XRAY 10:57
PROVIDERS: PCP Internal Medicine; Visit Provider Physician Assistant Medical
DX: J10.1 Influenza due to other identified influenza virus with other respiratory manifestations (principal); J98.4 Other disorders of lung; Z00.00 Encounter for general adult medical examination without abnormal findings; R05.3 Chronic cough
CPT/HCPCS: 36415; 71046; 80053; 83880; 85025; 96127; 99212

== ENCOUNTER → 2024-11-24 12:39 | Outpatient (BNV) | payer MEDICARE, SELFPAY | PROVIDERS: PCP Internal Medicine; Visit Provider Radiology Diagnostic Radiology | DX: R05.3 Chronic cough (principal) | CPT/HCPCS: 71046 ==

== ENCOUNTER 2024-12-01 05:12 | Emergency (ER) | payer MEDICARE, SELFPAY ==
--- NOTE | ~2024-12-01 | CT_ITS ---
EXAMINATION: CT ABDOMEN AND PELVIS WITH CONTRAST CLINICAL INFORMATION: Left flank pain. Left lower back pain COMPARISON: CT abdomen 11/10/2016. TECHNIQUE: Multidetector volumetric images were obtained from the superior aspect of the liver through the pubic symphysis following administration 85 mL of Omnipaque 350 intravenous contrast. Sagittal and coronal reformatted images were obtained on the technologist's workstation. Oral contrast: No This CT examination was performed using dose optimization techniques as appropriate, variously including the following: *Automated exposure control *Adjustment of mA and/or kV according to patient size (this includes techniques or standardized protocols for targeted exams where dose is matched to indication/reason for exam; i.e. extremities or head) *Use of iterative reconstruction technique FINDINGS: LUNG BASES: There is left basilar platelike atelectasis. LIVER, GALLBLADDER, AND BILIARY TREE: The liver is normal in size, shape, and attenuation. No focal hepatic lesion or there is mild intrahepatic ductal prominence. All bladder is not visualized with certainty and likely contracted or removed. The CBD is dilated measuring 1 cm distal and 1.1 cm in proximal segments. PANCREAS: Unremarkable. SPLEEN: Unremarkable. ADRENAL GLANDS: Unremarkable. KIDNEYS AND URETERS: The kidneys are normal in size, shape, and attenuation. No hydronephrosis, hydroureter, or calculi seen. No perinephric stranding there is a 2.5 cm simple cyst upper pole left kidney. There are additional smaller cysts scattered in the right kidney. BLADDER: Unremarkable. GASTROINTESTINAL TRACT: There is scattered stool and gas seen throughout the colon without significant distention. The small bowel loops are normal caliber. Appendix is short and unremarkable.. ABDOMINAL WALL: There is a small lumbrical hernia containing fat. LYMPH NODES: Normal. VASCULAR: Unremarkable. PELVIC VISCERA: The uterus is anteverted and appears unremarkable. No adnexal mass or free fluid. No abnormal size pelvic or inguinal lymph nodes. OSSEOUS STRUCTURES: Degenerative disc changes L1-2, L2-3 and L5-S1 disc levels. There is grade 1 retrolisthesis of L2-L3 and grade 1 anterolisthesis L4-5 S1. There is bilateral L5-S1, L4-L5, L3-4 and L2-[address]/CT abdomen pelvis w IV con IMPRESSION: Mild constipation. No signs of obstruction. Appendix is sagittal short and unremarkable. Degenerative changes of lumbar spine as described above. Simple bilateral renal cysts. No radiopaque urolith or hydroureteronephrosis. Fleischner guidelines were followed. Electronically signed by: Filipe Rubio MD 12/01/2024 09:37 AM COLIN
--- NOTE | ~2024-12-01 | CT_ITS ---
EXAMINATION: CT CHEST WITH CONTRAST CLINICAL INFORMATION: Shortness of breath. Recent pneumonia. COMPARISON: Chest x-ray 11/24/2024 TECHNIQUE: Multidetector volumetric CT imaging of the chest was obtained after the administration of 50 mL of Omnipaque 350 intravenous contrast without immediate adverse reactions. Axial MIP volume rendering provided. Sagittal and coronal reformatted images were obtained. This CT examination was performed using dose optimization techniques as appropriate, variously including the following: *Automated exposure control *Adjustment of mA and/or kV according to patient size (this includes techniques or standardized protocols for targeted exams where dose is matched to indication/reason for exam; i.e. extremities or head) *Use of iterative reconstruction technique DLP 995 mGy/cm. FINDINGS: NET DEVELOPER PROGRAMMER: Well-expanded lungs. LUNGS: The lungs are well-expanded and clear acute process. There is lingular patchy atelectasis or scarring. Minimal scarring atelectasis seen in the right lower lobe lateral basal segment. Bandlike atelectasis seen left lower lobe anterobasal segment. No consolidation seen. There is a 2 mm nodule in the right minor fissure axial image 61/6, 3 minute calcified granuloma left lower lobe axial image 75/6. No additional pulmonary nodule seen. MEDIASTINUM: Central trachea and the bronchi are widely patent. Normal symmetry of thyroid lobes is seen with a hypodense 1 cm nodule left lobe. Heart is dystrophic calcification of the thoracic arch without aneurysmal dilatation. Normal three-vessel branching of the arch is seen. No abnormal size mediastinal or hilar lymph nodes seen. Heart size is normal. No pericardial effusion seen. There is trace coronary artery calcifications present. PLEURA: There is no pleural effusion. No pleural mass or thickening. AXILLA: Small bilateral axillary lymph nodes seen. The chest wall is unremarkable. UPPER ABDOMEN: Visualized liver, spleen, pancreas and bilateral adrenal glands are unremarkable. OSSEOUS STRUCTURES: UNREMARKABLE. CT/CT chest w IV con IMPRESSION: Atelectatic changes in the lingula or resolving infiltrate. There is bibasilar atelectasis and/or scarring. No acute pneumonic process seen. Small intrafissural lymph node in the right minor fissure. Fleischner guidelines were followed. Electronically signed by: Filipe Rubio MD 12/01/2024 09:43 AM EST
[2024-12-01 05:14] VITALS: BP 156/60; PULSE 122; RESP 20; TEMP 36.6; O2SAT 98; BMI 30.3
[2024-12-01 05:34] LABS: Hematocrit 38.6 % (37.0-47.0); Hemoglobin 12.9 g/dl (12.0-16.0); Mean Corpuscular HGB Conc 33.4 g/dl (31.0-35.0); Mean Corpuscular Hemoglobin 29.5 pg (27.0-33.0); Mean Corpuscular Volume 88.3 fL (80.0-98.0); Mean Platelet Volume 10.7 fL (9.4-12.3); Platelet Count 279 X10*3/uL (160-400); Red Blood Count 4.37 X10*6/uL (4.20-5.50); Red Cell Distribution Width 14.9 % (11.0-16.0); White Blood Count 8.2 X10*3/uL (4.8-10.8)
[2024-12-01 05:48] LABS: Alanine Aminotransferase 14 U/L (0-31); Albumin Level 3.7 g/dL (3.5-5.0); Alkaline Phosphatase 84 U/L (39-117); Anion Gap 15 (12-20); Aspartate Amino Transferase 13 U/L (5-31); Bilirubin Total 0.5 mg/dL (0.0-1.0); Blood Urea Nitrogen 16 mg/dL (9-16); Calcium 8.8 mg/dL (8.4-10.2); Carbon Dioxide 19 mmol/L (22-29); Chloride 106 mmol/L (96-108); Creatinine Clr Calc Pharmacy 40.4; Estimated Glomerular Filt Rate 60; Glucose Random 102 mg/dL (60-115); Potassium 4.6 mmol/L (3.3-5.1); Sodium 135 mmol/L (135-145); Total Protein 6.8 g/dL (6.5-8.0)
[2024-12-01 05:52] LABS: Band Neutrophils Percent 4 % (3-5); Eosinophils Absolute Manual 0.1 X10*3/uL (0.0-0.4); Eosinophils Percent Manual 1 % (0-4); Lymphocytes Absolute Manual 3.5 X10*3/uL (1.2-4.9); Lymphocytes Percent Manual 43 % (20-40); Metamyelocytes Absolute 0.3 X10*3/uL; Metamyelocytes Percent 4 %; Monocytes Absolute Manual 1.5 X10*3/uL (0.1-1.2); Monocytes Percent Manual 18 % (2-11); Neutrophils Absolute Manual 2.8 X10*3/uL (2.0-8.3); Neutrophils Percent Manual 30 % (45-73)
[2024-12-01 05:53] LABS: Platelet Estimate NORMAL (NORMAL); Platelet Morphology Comment NORMAL; RBC Morphology NORMAL
[2024-12-01 05:54] LABS: Differential Comment SEE
[2024-12-01 06:31] VITALS: BP 135/65; PULSE 83; RESP 19; TEMP 36.5; O2SAT 99
--- NOTE | 2024-12-01 06:40 | ED_ITS ---
HPI - General Adult General Chief complaint: Back Pain/Injury Stated complaint: lower back pain, Spitting blood Time Seen by Provider: 12/01/24 06:39 Source: patient and family () Mode of arrival: ambulatory Limitations: no limitations History of Present Illness ED Provider: Nazanin Radford PA-C HPI narrative: Patient is an 84 year old assigned female at with a history of HTN, asthma, lumbar stenosis, and recent Influenza infection on 11/14 presenting to the emergency department today with left lower back and abdominal pain. Patient states that over the last 4 days she has had left sided low back and abdominal pain that has worsened. Patient states that she did not do anything to cause the pain and she just woke up and it was there. Patient denies any dizziness, lightheadedness, nausea, vomiting, fever, chills, blurry vision, double vision, loss of vision, chest pain, difficulty breathing, shortness of breath, night sweats, pain with urination, increased urinary frequency, increased urinary urgency, blood in her urine or stool, syncope or a near syncopal episode, recent trauma or falls, bowel incontinence, bladder incontinence, or any other complaints at this time. Onset (ago): day(s) (4) Location: back, abdomen and left Relieving factors: none Exacerbating factors: none Treatments prior to arrival: none Related Data Home Medications ?Medication ?Instructions ?Recorded ?Confirmed loratadine 10 mg tablet (Claritin) 10 mg PO DAILY 12/31/23 11/24/24 Previous Rx's ?Medication ?Instructions ?Recorded fluticasone propionate 50 1 spray intranasal BID #16 grams 08/31/22 mcg/actuation nasal spray,suspension (Flonase Allergy Relief) walker #1 ea 12/26/22 albuterol sulfate 90 mcg/actuation 2 puff inhalation Q4-6H PRN cough 12/07/23 aerosol inhaler and wheezing 30 days #8.5 grams lidocaine 4 % topical patch 1 patch topical DAILY PRN pain #15 03/18/24 ea cyclobenzaprine 10 mg tablet 10 mg PO BEDTIME #14 tabs 06/15/24 cholecalciferol (vitamin D3) 1,250 1,250 mcg PO QWEEK #12 caps 07/18/24 mcg (50,000 unit) capsule amitriptyline 10 mg tablet 10 mg PO DAILY #90 tabs 08/02/24 pantoprazole 40 mg tablet,delayed 40 mg PO DAILY #90 tabs 08/27/24 release losartan 50 mg tablet 50 mg PO DAILY hypertension 30 09/30/24 days #90 tabs metoprolol succinate 25 mg 25 mg PO DAILY #90 tabs 10/09/24 tablet,extended release 24 hr apixaban 2.5 mg tablet (Eliquis) 2.5 mg PO BID #180 tabs 11/19/24 albuterol sulfate 90 mcg/actuation 1 inh inhalation QID PRN shortness 11/24/24 aerosol inhaler of breath or wheezing #6.7 grams amoxicillin 875 mg-potassium 1 tab PO BID 10 days #20 tabs 11/24/24 clavulanate 125 mg tablet azithromycin 250 mg tablet See Rx Instructions PO .COMPLEX #6 11/24/24 tabs hydrocodone-homatropine 5 mg-1.5 5 ml PO Q6H PRN cough #200 mL 11/24/24 mg/5 mL (5 mL) oral syrup (Hycodan) prednisone 20 mg tablet 40 mg (2 x 20 mg) PO DAILY 5 days 11/24/24 #10 tabs codeine 10 mg-guaifenesin 100 mg/5 5 ml PO Q6H PRN cough #120 mL 11/30/24 mL oral liquid Allergies Allergy/AdvReac Type Severity Reaction Status Date / Time No Known Allergies Allergy Verified 12/01/24 05:18 Review of Systems 2 Constitutional: Constitutional: Reports no additional constitutional complaints, Denies chills, Denies fever(s) and Denies night sweats Eyes: Eyes: Reports no additional eye complaints, Denies blurry vision, Denies change in vision, Denies diplopia, Denies eye discharge, Denies loss of vision and Denies eye pain ENT: Denies dizziness Cardiovascular: Cardiovascular: Reports no additional cardiovascular complaints, Denies chest pain, Denies lightheadedness, Denies Loss of Consciousness and Denies dyspnea Respiratory: Respiratory: Reports no additional respiratory complaints and Denies dyspnea Gastrointestinal: Gastrointestinal: Reports no additional gastrointestinal complaints, Reports abdominal pain (left lower), Denies melena, Denies hematochezia, Denies change in bowel habits and Denies change in stool character Genitourinary: Genitourinary: Denies hematuria, Denies urinary frequency, Denies dysuria, Denies urinary incontinence, Denies urinary hesitancy and Denies urinary urgency Musculoskeletal: Musculoskeletal: Reports no additional musculoskeletal complaints, Reports back pain, Denies numbness and Denies tingling Comments: left sided low back pain Neurologic: Denies dizziness, Denies loss of vision, Denies numbness and Denies tingling Psychiatric: Psychiatric: Reports no additional psychiatric complaints Endocrine: Endocrine: Reports no additional endocrine complaints Hematologic/Lymphatic: Hematologic/Lymphatic: Reports no additional hematologic/lymphatic complaints Allergic/Immunologic: Allergic/Immunologic: Reports no additional allergic/immunologic complaints [facility] Past Medical History Attestation statement: The following information was validated with the patient. (all information validated with the patient's ) Source: old records reviewed, obtained from family (patient's provided additional history and confirmed the history provided by the patient. 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 Son No problems noted. Daughter No problems noted. 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) Vision needs: No Physical Exam ED Vital Signs: Vital Signs - 24 hr 12/01/24 05:14 12/01/24 06:31 12/01/24 07:42 Temperature 97.8 F 97.7 F Pulse Rate 122 H 83 Respiratory Rate 20 19 18 Blood Pressure 156/60 H 135/65 Pulse Oximetry 98 99 Oxygen Delivery Method Room Air Room Air 12/01/24 08:03 12/01/24 10:27 12/01/24 11:22 Temperature 98.2 F Pulse Rate 103 H 100 100 Respiratory Rate 13 15 Blood Pressure 155/62 H 159/45 H 159/45 H Pulse Oximetry 97 95 95 Oxygen Delivery Method Room Air Room Air BMI result Body Mass Index 30.3 Const General: cooperative, no acute distress, alert and awake Nutritional Appearance: well nourished Orientation/consciousness: patient oriented x3 Limitations: no limitations HENMT Head: Yes normal to inspection and Yes atraumatic Ears: hearing grossly normal bilaterally and external ears normal General nose exam: Normal external nose present, no nasal discharge noted and no epistaxis Face and sinus: Yes normal facial exam, No abrasion and No laceration Mouth: Normal oral and palatal mucosa present, no drooling and no muffled voice Eyes General: appearance normal, both eyes and all related structures Periorbital: periorbital findings normal Eyelids: Yes eyelids normal Conjunctivae: conjunctivae normal Pupils: Equal, round and reactive pupils present EOM: EOMs intact bilaterally Neck Neck: Yes normal visual inspection, Yes full ROM and Yes no lymphadenopathy Chest Chest palpation & inspection: normal inspection of the chest Resp Effort & Inspection: normal respiratory effort and able to speak in complete sentences GI Inspection: Yes normal to inspection Neuro General: patient oriented x3, moves all extremities and CN's II-XI intact bilaterally Cranial nerves: Yes Equal, round and reactive pupils present Cognition (Neuro): normal cognition Extrem General: Yes normal to inspection, Yes full ROM and Yes capillary refill normal Psych Appearance: grossly normal Mental Status: mental status grossly normal Affect: normal affect Attitude: cooperative Thought process: Normal thought process present Thought content: Normal thought content present Insight: Good insight present (Psych) Medications Administered Discontinued Medications Generic Name Dose Route Start Last Admin Trade Name Freq PRN Reason Stop Dose Admin Diazepam 2.5 mg 12/01/24 10:08 12/01/24 10:28 Diazepam 10 Mg/2 Ml Cartridge IVPUSH 12/01/24 10:09 2.5 mg STAT STA Administration Sodium Chloride 1,000 mls @ 999 mls/hr 12/01/24 07:00 12/01/24 10:14 Ns IV 12/01/24 08:00 Infused .Q1H1M BRITTNEY Infusion Iohexol 100 ml 12/01/24 09:16 12/01/24 09:17 Iohexol 350 Mg/Ml 100 Ml Infus..Btl IV 12/01/24 09:17 85 ml ONCE ONE Administration Morphine Sulfate 4 mg 12/01/24 06:52 12/01/24 07:42 Morphine Sulfate 4 Mg/Ml Cartridge IVPUSH 12/01/24 06:53 4 mg ONCE ONE Administration Protocol Ondansetron HCl 4 mg 12/01/24 06:52 12/01/24 07:42 Ondansetron Hcl 4 Mg/2 Ml Vial IVPUSH 12/01/24 06:53 4 mg ONCE ONE Administration Medical Decision Making Medical Decision Making MDM Narrative: Patient is an 84 year old assigned female at with a history of HTN, asthma, lumbar stenosis, and recent Influenza infection on 11/14 presenting to the emergency department today with left lower back and abdominal pain. Patient's physical exam was unremarkable. Patient's blood work was unremarkable. Patient's EKG showed sinus arrhythmia but otherwise unremarkable. Given patient's recent pneumonia diagnosis - I opted to also image her chest. Patient's chest + abdomen/pelvis CTs showed no acute process. Patient's clinical presentation is most consistent with acute on chronic lumbar stenosis / radiculopathy. I explained my physical exam findings as well as all test results to the patient and the patient's . I answered all questions asked by the patient and the patient's . Patient received IV pain medication which, upon re-evaluation, she stated it helped her symptoms significantly. Patient was concerned about going home as she is now - so had physical therapy evaluate and the case management team met with her. It was determined the patient would be discharged home with VNA services. I stressed the importance of the patient taking her medication as directed (either prescribed or as the over the counter packaging recommends). I stressed the importance of the patient following up with her primary care provider and a web analytics specialist. I stressed the importance of the patient returning to the emergency department immediately if her symptoms were to worsen or if she were to develop any dizziness, shortness of breath, difficulty breathing, chest pain, blurry vision, loss of vision, nausea, vomiting, abdominal pain, fever, chills, back pain, or any other complaints. Patient and the patient's verbalized agreement and understanding with this treatment plan and discharge. Differential Diagnosis Differential Diagnoses: The differential diagnosis associated with the presentation includes Lumbar stenosis Low back pain Low back sprain Lumbar radiculopathy Admission/Observation Consideration of admission/observation: Escalation of care including admission/observation considered Patient would have been admitted to the hospital had her work up had any findings where hospital admission was appropriate and her clinical presentation warranted hospital admission. Lab Data [facility] Lab Attestation statement: I reviewed the patient's lab results. My interpretation of these results are in the [facility] Rationale portion of this note. 12/01/24 05:29 12/01/24 05:29 Labs: Lab Results 12/01/24 12/01/24 12/01/24 Range/Units 05:29 06:42 07:34 WBC 8.2 (4.8-10.8) X10*3/uL RBC 4.37 (4.20-5.50) X10*6/uL Hgb 12.9 (12.0-16.0) g/dl Hct 38.6 (37.0-47.0) % MCV 88.3 (80.0-98.0) fL MCH 29.5 (27.0-33.0) pg MCHC 33.4 (31.0-35.0) g/dl RDW 14.9 (11.0-16.0) % Plt Count 279 D (160-400) X10*3/uL MPV 10.7 (9.4-12.3) fL Immature Gran % (Auto) Cancelled Neut % (Auto) Cancelled Lymph % (Auto) Cancelled [place] % (Auto) Cancelled Eos % (Auto) Cancelled Baso % (Auto) Cancelled Lymph # (Auto) Cancelled [place] # (Auto) Cancelled Eos # (Auto) Cancelled Baso # (Auto) Cancelled Abs Immat Gran (auto) Cancelled Absolute Neuts (auto) Cancelled Absolute Nucleated RBC 0.000 (0.0-0.012) X10*3/uL Nucleated RBC % (auto) 0.0 (0.0-0.2) /100WBC Neutrophils % (Manual) 30 L (45-73) % Band Neutrophils % 4 (3-5) % Lymphocytes % (Manual) 43 H (20-40) % Monocytes % (Manual) 18 H (2-11) % Eosinophils % (Manual) 1 (0-4) % Metamyelocytes % 4 % Abs Neuts (Manual) 2.8 (2.0-8.3) X10*3/uL Lymphocytes # (Manual) 3.5 (1.2-4.9) X10*3/uL Monocytes # (Manual) 1.5 H (0.1-1.2) X10*3/uL Eosinophils # (Manual) 0.1 (0.0-0.4) X10*3/uL Metamyelocytes # 0.3 X10*3/uL Platelet Estimate NORMAL (NORMAL) Plt Morphology Comment NORMAL RBC Morphology NORMAL Sodium 135 (135-145) mmol/L Potassium 4.6 (3.3-5.1) mmol/L Chloride 106 (96-108) mmol/L Carbon Dioxide 19 L (22-29) mmol/L Anion Gap 15 (12-20) BUN 16 (9-16) mg/dL Creatinine 0.90 (0.5-1.4) mg/dL Estim Creat Clear Calc 40.4 Estimated GFR 60 Random Glucose 102 (60-115) mg/dL Lactic Acid 1.5 (0.5-2.0) mmol/L Calcium 8.8 (8.4-10.2) mg/dL Total Bilirubin 0.5 (0.0-1.0) mg/dL AST 13 (5-31) U/L ALT 14 (0-31) U/L Alkaline Phosphatase 84 (39-117) U/L Total Protein 6.8 (6.5-8.0) g/dL Albumin 3.7 (3.5-5.0) g/dL Urine Color Yellow Urine Appearance Clear Urine pH 6.0 (5.0-9.0) Ur Specific [place] 1.010 (1.005-1.025) Urine Protein Negative (Neg-Trace) mg/dL Urine Glucose (UA) Negative (Negative) mg/dL Urine Ketones Negative (Negative) mg/dL Urine Blood Negative (Negative) Urine Nitrite Negative (Negative) Ur Leukocyte Esterase Negative (Negative) Independent Interpretation I performed an independent interpretation of an: EKG and CT Scan Interpretation: My interpretation is in agreement with the radiologist's impression of these imaging studies. L Report Number: [id number]: Total DLP = 0.00 mGy-cm EXAMINATION: CT CHEST WITH CONTRAST CLINICAL INFORMATION: Shortness of breath. Recent pneumonia. COMPARISON: Chest x-ray 11/24/2024 TECHNIQUE: Multidetector volumetric CT imaging of the chest was obtained after the administration of 50 mL of Omnipaque 350 intravenous contrast without immediate adverse reactions. Axial MIP volume rendering provided. Sagittal and coronal reformatted images were obtained. This CT examination was performed using dose optimization techniques as appropriate, variously including the following: *Automated exposure control *Adjustment of mA and/or kV according to patient size (this includes techniques or standardized protocols for targeted exams where dose is matched to indication/reason for exam; i.e. extremities or head) *Use of iterative reconstruction technique DLP 995 mGy/cm. FINDINGS: CHEMICAL SPRAYER: Well-expanded lungs. LUNGS: The lungs are well-expanded and clear acute process. There is lingular patchy atelectasis or scarring. Minimal scarring atelectasis seen in the right lower lobe lateral basal segment. Bandlike atelectasis seen left lower lobe anterobasal segment. No consolidation seen. There is a 2 mm nodule in the right minor fissure axial image 61/6, 3 minute calcified granuloma left lower lobe axial image 75/6. No additional pulmonary nodule seen. MEDIASTINUM: Central trachea and the bronchi are widely patent. Normal symmetry of thyroid lobes is seen with a hypodense 1 cm nodule left lobe. Heart is dystrophic calcification of the thoracic arch without aneurysmal dilatation. Normal three-vessel branching of the arch is seen. No abnormal size mediastinal or hilar lymph nodes seen. Heart size is normal. No pericardial effusion seen. There is trace coronary artery calcifications present. PLEURA: There is no pleural effusion. No pleural mass or thickening. AXILLA: Small bilateral axillary lymph nodes seen. The chest wall is unremarkable. UPPER ABDOMEN: Visualized liver, spleen, pancreas and bilateral adrenal glands are unremarkable. OSSEOUS STRUCTURES: UNREMARKABLE. CT/CT chest w IV con IMPRESSION: Atelectatic changes in the lingula or resolving infiltrate. There is bibasilar atelectasis and/or scarring. No acute pneumonic process seen. Small intrafissural lymph node in the right minor fissure. Fleischner guidelines were followed. Electronically signed by: Filipe Rubio MD 12/01/2024 09:43 AM [facility] Dictated By: Filipe Rubio MD Signed By: Electronically signed by Filipe Rubio MD 12/01/24 0943 Report Number: [id number]: Total DLP = 994.91 mGy-cm EXAMINATION: CT ABDOMEN AND PELVIS WITH CONTRAST CLINICAL INFORMATION: Left flank pain. Left lower back pain COMPARISON: CT abdomen 11/10/2016. TECHNIQUE: Multidetector volumetric images were obtained from the superior aspect of the liver through the pubic symphysis following administration 85 mL of Omnipaque 350 intravenous contrast. Sagittal and coronal reformatted images were obtained on the technologist's workstation. Oral contrast: No This CT examination was performed using dose optimization techniques as appropriate, variously including the following: *Automated exposure control *Adjustment of mA and/or kV according to patient size (this includes techniques or standardized protocols for targeted exams where dose is matched to indication/reason for exam; i.e. extremities or head) *Use of iterative reconstruction technique FINDINGS: LUNG BASES: There is left basilar platelike atelectasis. LIVER, GALLBLADDER, AND BILIARY TREE: The liver is normal in size, shape, and attenuation. No focal hepatic lesion or there is mild intrahepatic ductal prominence. All bladder is not visualized with certainty and likely contracted or removed. The CBD is dilated measuring 1 cm distal and 1.1 cm in proximal segments. PANCREAS: Unremarkable. SPLEEN: Unremarkable. ADRENAL GLANDS: Unremarkable. KIDNEYS AND URETERS: The kidneys are normal in size, shape, and attenuation. No hydronephrosis, hydroureter, or calculi seen. No perinephric stranding there is a 2.5 cm simple cyst upper pole left kidney. There are additional smaller cysts scattered in the right kidney. BLADDER: Unremarkable. GASTROINTESTINAL TRACT: There is scattered stool and gas seen throughout the colon without significant distention. The small bowel loops are normal caliber. Appendix is short and unremarkable.. ABDOMINAL WALL: There is a small lumbrical hernia containing fat. LYMPH NODES: Normal. VASCULAR: Unremarkable. PELVIC VISCERA: The uterus is anteverted and appears unremarkable. No adnexal mass or free fluid. No abnormal size pelvic or inguinal lymph nodes. OSSEOUS STRUCTURES: Degenerative disc changes L1-2, L2-3 and L5-S1 disc levels. There is grade 1 retrolisthesis of L2-L3 and grade 1 anterolisthesis L4-5 S1. There is bilateral L5-S1, L4-L5, L3-4 and L2-[address]/CT abdomen pelvis w IV con IMPRESSION: Mild constipation. No signs of obstruction. Appendix is sagittal short and unremarkable. Degenerative changes of lumbar spine as described above. Simple bilateral renal cysts. No radiopaque urolith or hydroureteronephrosis. Fleischner guidelines were followed. Electronically signed by: Filipe Rubio MD 12/01/2024 09:37 AM EST Dictated By: Filipe Rubio MD Signed By: Electronically signed by Filipe Rubio MD 12/01/24 0937 I independently interpreted these EKGs and am in agreement with the below findings: Vent. Rate: 93 BPM Atrial Rate: 93 BPM P-R Int: 196 ms QRS Dur: 82 ms QT Int: 334 ms P-R-T Axes: 32 -2 26 degrees QTcB Int: 415 ms Sinus rhythm with Premature atrial complexes Minimal voltage criteria for LVH, may be normal variant (R in aVL) Possible Anterior infarct, age undetermined When compared with ECG of 15-Aug-2023 06:32, Premature atrial complexes are now Present Electronically Signed By: DHRUV EUGENE MD Dictated By: Dhruv Eugene MD Signed By: Electronically signed by Dhruv Eugene MD 12/01/24 0935 Vent. Rate: 96 BPM Atrial Rate: 96 BPM P-R Int: 148 ms QRS Dur: 76 ms QT Int: 338 ms P-R-T Axes: 25 0 16 degrees QTcB Int: 427 ms Sinus rhythm with Premature atrial complexes with Aberrant conduction When compared with ECG of 01-Dec-2024 07:51, Premature ventricular complexes are no longer Present Aberrant conduction is now Present DD/ 1010 Radiology Impression Discussion of test interpretation with radiology: I have reviewed the radiologist's reading. Independent Historian Clinical information obtained from an independent historian. History obtained from or confirmed by: Spouse (patient's provided additional history and confirmed the history provided by the patient.) Critical Care Time Critical Care Time Critical Care Time: Yes Total Critical Care Time: 33 Attestation: I spent 33 minutes of Critical Care Time with this patient. This does not include time spent on separately reported billable procedures. Discharge Plan Discharge Clinical Impression: Left lumbar radiculopathy Patient Disposition: Home, Self-Care Instructions: Lumbar Radiculopathy (ED), Lower Back Exercises (ED) Additional Instructions: Your work up today was reassuring that you have no emergent cause for your symptoms. Your clinical presentation today is most consistent with left lumbar radiculopathy. You should follow up with a web analytics specialist for this. Follow up with your primary care provider. Return to the emergency department immediately if your symptoms worsen or if you develop any numbness, tingling, dizziness, shortness of breath, difficulty breathing, chest pain, blurry vision, loss of vision, nausea, vomiting, abdominal pain, fever, chills, back pain, or any other complaints. Please see the information below about our Patient Portal. If you are not yet enrolled in the [facility] Patient Portal, you will receive an enrollment email invitation following your visit to any [facility] care setting. You may also self-enroll in the Patient Portal by visiting our website: [email or web address] The following information is required to access the Patient Portal: - Your [facility] Medical Record Number - Your personal home email address (must match what is in your electronic medical record, Registration staff can assist with this) - Name - Date of Capabilities of the Patient Portal: - Message some providers - View upcoming appointments - Access your health summary, medical history, and visit history - View current conditions and allergies - View procedure and lab results - View your medications, including guidelines, side effects, and precautions - Complete pre-appointment questionnaires requested by your provider - Ready summary reports of your office visits and procedures To access the Patient Portal Mobile Rafael, follow these directions: - Search [employer] in the Rafael Store or Mono[employer] Store - Download the Rafael - Search for [facility] - Enter your login/password Prescriptions: No [facility]DME[facility] See Rx Instructions .Route Qty: 1 0RF Rx Instructions: As directed albuterol sulfate 90 mcg/actuation HFA aerosol inhaler 2 puff inhalation Q4-6H PRN (Reason: cough and wheezing ) 30 Days Qty: 8.5 2RF cyclobenzaprine 10 mg tablet 10 mg PO BEDTIME Qty: 14 0RF cholecalciferol (vitamin D3) 1,250 mcg (50,000 unit) capsule 1,250 mcg PO QWEEK Qty: 12 1RF amitriptyline 10 mg tablet 10 mg PO DAILY Qty: 90 1RF pantoprazole 40 mg tablet,delayed release (DR/EC) 40 mg PO DAILY Qty: 90 1RF losartan 50 mg tablet 50 mg PO DAILY 30 Days Qty: 90 1RF metoprolol succinate 25 mg tablet extended release 24 hr 25 mg PO DAILY Qty: 90 0RF Eliquis 2.5 mg tablet 2.5 mg PO BID Qty: 180 1RF codeine-guaifenesin 10-100 mg/5 mL liquid 5 ml PO Q6H PRN (Reason: cough) Qty: 120 0RF fluticasone propionate [Flonase Allergy Relief] 50 mcg/actuation spray,suspension 1 spray intranasal BID Qty: 16 0RF Rx Instructions: administer into each nostril lidocaine 4 % adhesive patch,medicated 1 patch topical DAILY PRN (Reason: pain) Qty: 15 0RF azithromycin 250 mg tablet See Rx Instructions PO .COMPLEX Qty: 6 0RF Rx Instructions: For 250 mg dose pack: take 500 mg today (day 1), then 250 mg for 4 days (days 2-5) PO prednisone 20 mg tablet 40 mg PO DAILY 5 Days Qty: 10 0RF albuterol sulfate 90 mcg/actuation HFA aerosol inhaler 1 inh inhalation QID PRN (Reason: shortness of breath or wheezing) Qty: 6.7 0RF amoxicillin-pot clavulanate 875-125 mg tablet 1 tab PO BID 10 Days Qty: 20 0RF hydrocodone-homatropine [Hycodan] 5-1.5 mg/5 mL (5 mL) syrup 5 ml PO Q6H PRN (Reason: cough) Qty: 200 0RF Rx Instructions: Partial Fill upon patient request. loratadine [Claritin] 10 mg tablet 10 mg PO DAILY Referrals: [facility] [Provider Group] (Call to establish and follow up with a web analytics specialist. ) [facility] [Provider Group] (Call to establish and follow up with a web analytics specialist. ) Mustapha Andrew MD [Primary Care Provider] - Print Language: Albanian
[2024-12-01 06:47] LABS: Appearance Urine Clear; Color Urine Yellow; Glucose Urine UA Negative (Negative); Leukocyte Esterase Urine Negative (Negative); Nitrite Urine Negative (Negative); Urine Blood Negative (Negative); Urine Ketones Negative (Negative); Urine Protein Negative (Neg-Trace)
--- NOTE | 2024-12-01 06:53 | ECG_ITS ---
Test Reason : MED CLEARANCE Blood Pressure : */* mmHG Vent. Rate : 93 BPM Atrial Rate : 93 BPM P-R Int : 196 ms QRS Dur : 82 ms QT Int : 334 ms P-R-T Axes : 32 -2 26 degrees QTcB Int : 415 ms Sinus rhythm with Premature atrial complexes Minimal voltage criteria for LVH, may be normal variant ( R in aVL ) Possible Anterior infarct , age undetermined Abnormal ECG When compared with ECG of 15-Aug-2023 06:32, Premature atrial complexes are now Present Referred By: Nazanin Radford Electronically Signed By: DOETTE EUGENE MD
[2024-12-01 07:42] VITALS: RESP 18
[2024-12-01] MEDS: Morphine Sulfate 4 MG/ML CARTRIDGE IVPUSH (07:42)
[2024-12-01] MEDS: ondansetron HCL 4 MG/2 ML VIAL IVPUSH (07:42)
[2024-12-01] MEDS: 0.9 % Sodium Chloride 1,000 ML 999 ML IV (07:45)
--- NOTE | 2024-12-01 08:02 | PC.NURSE ---
Resumed care of pt at 0700. Pt a/ox3, sitting up at bedside, respirations even and unlabored, no increased wob/sob noted. Placed on cardiac cath lab manager, sinus tach, HR 95-100s. 20g IV placed left AC, pt medicated per MAR with fluids, Zofran, and Morphine. Pt updated on plan of care, call borrego within reach, all needs met at this time.
[2024-12-01 08:03] VITALS: BP 155/62; PULSE 103; RESP 13; TEMP 36.8; O2SAT 97
[2024-12-01 08:03] LABS: Lactic Acid 1.5 mmol/L (0.5-2.0)
--- NOTE | 2024-12-01 08:06 | MHC.EDTECH ---
PATIENT CHANGED OVER AND EKG WAS TAKEN, blood work drawn. Patient on the heart monitor and she is resting quietly in her bed within call borrego in her reach.
[2024-12-01] MEDS: iohexoL 350 MG/ML 100 ML INFUS..BTL IV (09:17)
--- NOTE | 2024-12-01 10:04 | ECG_ITS ---
Test Reason : NEW [place]ACHY Blood Pressure : */* mmHG Vent. Rate : 96 BPM Atrial Rate : 96 BPM P-R Int : 148 ms QRS Dur : 76 ms QT Int : 338 ms P-R-T Axes : 25 0 16 degrees QTcB Int : 427 ms Sinus rhythm with Premature atrial complexes with Aberrant conduction Otherwise normal ECG When compared with ECG of 01-Dec-2024 07:51, Premature ventricular complexes are no longer Present Aberrant conduction is now Present Referred By: Nazanin Radofrd Electronically Signed By: ODETTE EUGENE MD
[2024-12-01 10:27] VITALS: BP 159/45; PULSE 100; RESP 15; O2SAT 95
[2024-12-01] MEDS: diazePAM 10 MG/2 ML CARTRIDGE 2.5 MG IVPUSH (10:28)
[2024-12-01 11:22] VITALS: BP 159/45; PULSE 100; O2SAT 95
--- NOTE | 2024-12-01 12:17 | MHC.CM.ED ---
Received case management consult from Nazanin RENE. Patient came to the ER due to back pain related to lumbar stenosis. Physical therapy eval completed. Home with services recommended. Met with patient in regards to discharge planning. Patient lives with her , ambulates with a cane/walker and had no services prior to coming to the ER. PCP verified. HCP completed, signed and witnessed. Original given to patient. Copy placed in chart. Referral for home PT sent to [facility] at patient's request. Patient's will transport patient home. Serena DODGE and Nazanin RENE aware. Contiue to monitor for d/c needs.
== END 2024-12-01 15:18 | disposition home or self-care (01) ==
PROVIDERS: Physician Assistant Medical; Emergency Provider Emergency Medicine; PCP Internal Medicine
DX: M54.16 Radiculopathy, lumbar region (principal); M54.50 Low back pain, unspecified; R06.02 Shortness of breath; R04.2 Hemoptysis; R00.0 Tachycardia, unspecified; R26.81 Unsteadiness on feet; R10.9 Unspecified abdominal pain; Z79.899 Other long term (current) drug therapy
CPT/HCPCS: 36415; 71260; 74177; 80053; 81003; 83605; 85007; 85027; 87040; 93005; 96361; 96374; 96375; 97162; 99284; 99285; J2270; J2405; J3360; Q9967

== ENCOUNTER → 2024-12-01 06:52 | Outpatient (BNV) | payer MEDICARE, SELFPAY | PROVIDERS: Emergency Provider Emergency Medicine; PCP Internal Medicine; Visit Provider Radiology Diagnostic Radiology | DX: R10.9 Unspecified abdominal pain (principal); M54.50 Low back pain, unspecified; R06.02 Shortness of breath | CPT/HCPCS: 71260; 74177 ==

== ENCOUNTER → 2024-12-01 06:53 | Outpatient (BNV) | payer MEDICARE, SELFPAY | PROVIDERS: Emergency Provider Emergency Medicine; PCP Internal Medicine; Visit Provider Internal Medicine Cardiovascular Disease | DX: I49.1 Atrial premature depolarization (principal) | CPT/HCPCS: 93010 ==

== ENCOUNTER 2024-12-08 13:03 | Outpatient (AMB) | payer MEDICARE, SELFPAY ==
--- NOTE | 2024-12-08 13:05 | A.SPINEOV_ITS ---
Intake Visit Reasons: low back pain Intake Note: Mrs. Darling is here today for an ED F/u for Low back pain. Outsole Cutter Machine Required: No Allergies No Known Allergies Allergy (Verified 12/01/24 05:18) Assessment & Plan Assessment & Plan (1) Back pain: Code(s): M54.9 - Dorsalgia, unspecified Category: Medical Plan Mrs Darling came back to see us in follow-up. She was in the emergency room last week after having had the flu for 2 weeks and had a severe bout of coughing and experience severe left-sided rib pain and left-sided low back pain. The pain starts over her left SI joint region. It does not radiate down her legs. She has been having trouble walking. She has been having trouble sleeping. She has tried heating pads, ice, muscle relaxers as well as prednisone which has given her in the hospital emergency room. She has been having a physical therapist here at home and she has been doing stretching but she can not tolerate much of the activity. Walking around his very uncomfortable. Her is with her most of the time and has been helping her with her walker. I examined her today, she is uncomfortable but not in agony, she is able to stand up out of the walker on her own and walk to the other side of the examining room independently. She does wince once in her aunt awhile when the pain will cut her the right way. Her motor exam is somewhat limited in her left hip flexor causes her pain in her back when she moves so she is guarded somewhat with this but her distal lower extremity strength on both sides is full. Reflexes are normal and there is no clonus. I looked a her CT scan which was done at [facility] in the emergency room and I do not see any signs of an acute compression fracture or any significant change in her baseline disc degeneration. Obviously I can not see the discs themselves due to the limitations of CT. I suspect she injured a muscle with all the coughing. I am going to give her a week and some tramadol and see if this helps. I told her to be very cautious as this could be sedating especially in the elderly. Her reassures me that he will watch her at night and make sure that he helps her if she has to get up to go to the bathroom etc.. I told her to stop the cyclobenzaprine because it is not doing anything any way. Her prescription is running out. She will continue Tylenol. I told her to call me next week if it is not getting better and we could order a lumbar MRI. Total amount of time spent in this visit was 20 minutes in discussion of symptoms, lumbar CT imaging results and subsequent plan of care Orlando Nieto MD,PhD [facility] Medications: New tramadol 50 mg PO BEDTIME 30 tabs 0RF pain Coding Level of Care Code Est Pt Level 3 (25086) Diagnoses Back pain M54.9
== END 2024-12-08 13:42 | disposition home or self-care (01) ==
LOC: HO.HNS 13:03
PROVIDERS: PCP Internal Medicine; Visit Provider Physician Assistant
DX: M54.9 Dorsalgia, unspecified (principal)
CPT/HCPCS: 99213

== ENCOUNTER → 2024-12-08 13:03 | Outpatient (BNVA) | payer MEDICARE, SELFPAY | PROVIDERS: PCP Internal Medicine; Visit Provider Physician Assistant | DX: M54.50 Low back pain, unspecified (principal) | CPT/HCPCS: 99212 ==

== ENCOUNTER 2024-12-15 12:49 | Outpatient (AMB) | payer MEDICARE, SELFPAY ==
--- NOTE | 2024-12-15 12:59 | MHC.PC.OV ---
Vital Signs 12/15/24 13:00 Height 4 ft 11 in Weight 154 lb 6 oz BMI 31.2 BP 120/60 Blood Pressure Location Lt brachial Position Sitting Pulse 60 Pulse Source Pulse Oximeter Temp 97.3 F Temp Source Temporal Artery Scan Pulse Oximetry (%) 97 Oxygen Delivery Method Room Air Intake Visit Reasons: 3 month f/u Intake Note: Patient is here to follow up on Asthma, HTN. 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 Son No problems noted. Daughter No problems noted. 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 Easton Peña, Kim Smith, Irvin Arvizu and colleagues, with an educational robina from [employer]. Physical exam (Primary Care) Vital Signs: Last Vital Signs Temp 97.3 F 12/15/24 13:00 Pulse 60 12/15/24 13:00 BP 120/60 12/15/24 13:00 Pulse Ox 97 12/15/24 13:00 Oxygen Delivery Method Room Air 12/15/24 13:00 BMI result Body Mass Index 31.2 Tobacco/Smoking Status: Tobacco use Status Tobacco use date assessed 12/15/24 12/15/24 13:10 Patient Tobacco Use Status Never used Tobacco 12/15/24 13:10 Tobacco use type Cigarette 12/15/24 13:10 e-Cigarette/Vaping Use Never Used 12/15/24 13:10 Thrive Assessment: Date of Thrive Assessment Date Thrive assessed 11/24/24 12/15/24 13:10 Coding Level of Care Code Est Pt Level 4 (72991) Complex EM visit Add On G2211 Diagnoses Knee pain, right M25.561 Lumbar stenosis M48.061 Assessment & Plan Assessment & Plan (1) Knee pain, right: Code(s): M25.561 - Pain in right knee Category: Medical Plan: Patient has an orthopedic appt coming up. Has been scheduled for Synvisc injection. (2) Lumbar stenosis: Code(s): M48.061 - Spinal stenosis, lumbar region without neurogenic claudication Category: Medical Plan: MRI of the spine has been scheduled by [facility]. Cyclobenzaprine has been added to the regimen. Plan History of Present Illness The patient is an 84-year-old female presenting with concerns about eczema and osteoarthritis-related knee pain. Her eczema began on the legs and has spread to the back, appearing as itchy, flaky scabs. Past treatment was ineffective, prompting further evaluation today. For her knee pain, she uses tramadol at night and Tylenol during the day, with plans for upcoming joint injections. Previously experienced pneumonia has left her with diminished physical activity, and she reports back pain being assessed by Dr. Clarke, with a possible MRI for further diagnostics. During this visit, we also discussed managing her leg edema, likely linked to arthritis, monitoring for worsening symptoms before considering additional treatment. Social History - Reports using a cane for ambulation, avoiding risky movements to prevent falls. - Describes functional daily weariness, consistent with high physical demands impacting overall energy. - Indicates past pneumonia led to a decrease in mobility and subsequent activity levels. - Mentions sleep disruption, requiring bed modifications for ease of getting in and out. Review of Systems - General: Reports tiredness and decreased energy. - Musculoskeletal: Reports severe pain in the right knee; Denies any other joint involvement. - Neurological: Reports back pain under investigation by a specialist. - Urological: Reports frequent nocturnal urination, wearing pads for urinary incontinence management. Physical Exam General: Appearance normal, both eyes and all related structures Nutritional Appearance: Well nourished Orientation/consciousness: Patient oriented x3 Limitations: Patient experiences limitations due to arthritis and knee pain Head: Normal to inspection Neck: Normal visual inspection Chest: Normal palpation of entire chest wall Respiratory: Normal respiratory effort Neurology: Patient oriented x3 Results Plan For the eczema, a new topical cream will be tried with monitoring for efficacy. Knee pain will continue to be managed with current medications and joint injections to be performed soon. Back pain requires further evaluation by Dr. Clarke, including an MRI. For leg edema, we will consider diuretics only if symptoms worsen. Intervention for urinary symptoms involves pad use, with treatment adjustments based on future needs. Patient was informed and verbally consented to the use of an ambient scribe for clinic note documentation during this visit. Discussion Notes Today, we discussed various aspects of the management plan, focusing on eczema and chronic knee pain. We explored previous and current treatments, opting for a new topical medication for eczema. I explained the hyaluronic injections details for knee relief, weighing surgical options should symptoms persist. For her back pain, Dr. Clarke's further evaluation with an MRI was reviewed. We deliberated diuretic use for managing leg edema, prioritizing monitoring due to potential side effects. Follow-up guidance includes monitoring symptom progression and contacting the clinic for any acute changes or additional support needs. Patient Instructions - Apply the prescribed topical cream for eczema twice daily. - Continue tramadol at night and Tylenol during the day for knee pain. - Attend scheduled injection appointments for knee joint pain relief. - Follow up with Dr. Clarke concerning back pain evaluation. - Monitor leg swelling; report if symptoms worsen or additional treatment is needed. - Use pads for managing urinary symptoms, and stay hydrated. - Contact the clinic if experiencing significant symptom changes or concerns.
[2024-12-15 13:00] VITALS: BP 120/60; PULSE 60; TEMP 36.3; O2SAT 97; BMI 31.2
== END 2024-12-15 13:57 | disposition home or self-care (01) ==
LOC: HO.HMCH 12:50
PROVIDERS: PCP Internal Medicine; Visit Provider Internal Medicine
DX: M25.561 Pain in right knee (principal); M48.061 Spinal stenosis, lumbar region without neurogenic claudication

== ENCOUNTER → 2024-12-15 12:49 | Outpatient (BNVA) | payer MEDICARE, SELFPAY | PROVIDERS: PCP Internal Medicine; Visit Provider Internal Medicine | DX: M25.561 Pain in right knee (principal); M48.061 Spinal stenosis, lumbar region without neurogenic claudication | CPT/HCPCS: 99212 ==

== ENCOUNTER 2024-12-31 11:32 | Outpatient (REF) | payer MEDICARE, SELFPAY ==
--- NOTE | ~2024-12-31 | MR_ITS ---
CLINICAL HISTORY: M54.9 - Dorsalgia, unspecified MR lumbar spine without gadolinium Comparison: MR/AL/SR - MR LUMBAR SPINE WO CON - 05/31/24 14:02 EDT CR/AL/SR - XR LUMBAR SPINE 2-3V - 03/18/24 17:04 EDT Findings: 5 lumbar type vertebral bodies are present by plain film. Mild rightward curvature of the mid lumbar spine. Loss of normal lumbar lordosis. 4 mm of retrolisthesis T12 on L1. 5 mm of retrolisthesis of L1 on L2. 6 mm of retrolisthesis of L3 on L4. 4 mm of retrolisthesis of L3 on L4. 6 mm of anterolisthesis of L5 on S1. There is moderate reactive signal within the endplates adjacent to the L2-L3 intervertebral disc. Mild reactive signal within the remaining lumbar and lower thoracic endplates. There is new, minimal wedging of L2. New linear low T1/T2 signal intensity traverses the superior L2 endplate, and there is moderate surrounding ill-defined STIR signal elevation. Cauda equina and conus medullaris within normal limits. Paraspinous musculature intact. No masses. L1-L2: Moderate disc height loss and desiccation. Moderate diffuse disc bulge. Mild bilateral facet and ligamentum flavum hypertrophy. Mild epidural lipomatosis. Mild canal stenosis. Moderate left and mild right foraminal stenosis. No significant change. L2-L3:Severe disc height loss and desiccation. Mild diffuse disc bulge with superimposed left far lateral protrusion. Mild facet and ligamentum flavum hypertrophy. Mild epidural lipomatosis. Mild canal stenosis. Moderate bilateral foraminal stenosis. No significant change. L3-L4:Moderate disc height loss and desiccation. Mild diffuse disc bulge. Mild facet and ligamentum flavum hypertrophy. Mild canal stenosis. Moderate bilateral foraminal stenosis. No significant change. L4-L5: Mild disc height loss and desiccation. Mild diffuse disc bulge. Mild bilateral facet hypertrophy. Mild canal stenosis. Mild [id number]-left foraminal stenosis. No significant change. L5-S1:Moderate disc height loss and desiccation. Mild diffuse disc bulge. Moderate bilateral facet hypertrophy. Mild canal stenosis. Moderate bilateral foraminal stenosis. No significant change. IMPRESSION: 1. Minimal subacute L2 compression fracture. 2. Multilevel degenerative disc and facet disease, as well as ligamentum flavum hypertrophy. 3. Mild multilevel canal stenoses. 4. Multilevel [id number] foraminal stenoses. This document has been electronically signed by: Maribel Ashby MD on 12/31/2024 13:57:56
== END 2024-12-31 11:33 | disposition home or self-care (01) ==
LOC: HO.MRI 11:32
PROVIDERS: PCP Internal Medicine; Visit Provider Physician Assistant
DX: M54.9 Dorsalgia, unspecified (principal); M48.061 Spinal stenosis, lumbar region without neurogenic claudication
CPT/HCPCS: 72148

== ENCOUNTER → 2024-12-31 11:45 | Outpatient (BNV) | payer MEDICARE, SELFPAY | PROVIDERS: PCP Internal Medicine; Visit Provider Radiology Diagnostic Radiology | DX: M51.360 Other intervertebral disc degeneration, lumbar region with discogenic back pain only (principal); M99.63 Osseous and subluxation stenosis of intervertebral foramina of lumbar region | CPT/HCPCS: 72148 ==

== ENCOUNTER 2025-04-27 13:47 | Outpatient (AMB) | payer MEDICARE, SELFPAY ==
--- NOTE | 2025-04-27 13:49 | A.OFFPC_ITS ---
Vital Signs 04/27/25 13:50 Height 4 ft 11 in Weight 148 lb 2 oz BMI 29.9 BP 142/70 H Blood Pressure Location Lt brachial Position Sitting Temp 97.3 F Temp Source Temporal Artery Scan Intake Visit Reasons: 3mth f/u Intake Note: Patient is here to follow up on Asthma, HTN. 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 Son No problems noted. Daughter No problems noted. Social History Household Members: Spouse Housing: Apartment Alcohol intake: current Alcohol intake frequency: a few times a month Patient Tobacco Use Status: Never used Tobacco Tobacco use type: Cigarette e-Cigarette/Vaping Use: Never Used Second Hand Smoke Exposure: No Advance Directives Date on File: 12/01/24 service: No Current occupational status: retired Cognitive needs: Yes (Walker) Hearing needs: Yes (hear aide) Vision needs: No Questionnaire PHQ-9 Over the last 2 weeks, how often have you been bothered by any of the following problems? 1. Little interest or pleasure in doing things: not at all 2. Feeling down, depressed, or hopeless: not at all 3. Trouble falling or staying asleep, or sleeping too much: not at all 4. Feeling tired or having little energy: not at all 5. Poor appetite or overeating: not at all 6. Feeling bad about yourself - or that you are a failure or have let yourself or your family down: not at all 7. Trouble concentrating on things, such as reading the newspaper or watching television: not at all 8. Moving or speaking so slowly that other people could have noticed. Or the opposite - being so fidgety or restless that you have been moving around a lot more than usual: not at all 9. Thoughts that you would be better off or of hurting yourself in some way: not at all Total score: 0 Depression Screening Interpretation: Negative Depression Screening Done: Yes Source: Developed by Drs. Easton Peña, Kim Smith, Irvin Arvizu and colleagues, with an educational robina from [employer]. Thrive Questionnaire Date Thrive assessed: 11/24/24 I am a: Patient What is your living situation today?: I have a steady place to live Within the past 12 months, did the food you bought not last and you didn't have the money to get more?: Often true Within the past 12 months, did you worry whether your food would run out before you got money to buy more?: Often true Do you have trouble paying for medicines?: No Do you have trouble getting transportation to medical appointments?: No Do you have trouble paying your heating and electricity bill?: No Do you have trouble taking care of your child, family member or friend?: No Do you have trouble with day-to-day activities such as bathing, preparing meals, shopping, managing finances, etc.?: No Are you currently unemployed and looking for a job?: No Are you interested in more education?: No Please select the resources that you would like help with: None Currently or been in a relationship where the following occur: I choose not to answer THRIVE Score: 2 AUDIT C Alcohol Use Questionnaire (AUDIT-C) 1. How often do you have a drink containing alcohol?: Never Total Score: 0 CHARMAINE-7 AMB Questionnaire CHARMAINE-7 Date CHARMAINE - 7 assessed: 11/24/24 Feeling nervous, anxious, or on edge: 0 = Not at all Not being able to stop or control worryin = Not at all Worrying too much about different things: 0 = Not at all Trouble relaxin = Not at all Being so restless that it is hard to sit still: 0 = Not at all Becoming easily annoyed or irritable: 0 = Not at all Feeling afraid as if something awful might happen: 0 = Not at all Total CHARMAINE-7 score (0-4 normal; 5-9 mild; 10-14 moderate; 15-21 severe): 0 Source: Developed by Drs. Easton Peña, Kim Smith, Irvin Arvizu and colleagues, with an educational robina from [employer]. Physical exam (Primary Care) Vital Signs: Last Vital Signs Temp 97.3 F 04/27/25 13:50 BP 142/70 H 04/27/25 13:50 BMI result Body Mass Index 29.9 Tobacco/Smoking Status: Tobacco use Status Tobacco use date assessed 04/27/25 04/27/25 13:55 Patient Tobacco Use Status Never used Tobacco 04/27/25 13:55 Tobacco use type Cigarette 04/27/25 13:55 e-Cigarette/Vaping Use Never Used 04/27/25 13:55 PHQ-9: PHQ-9 Score PHQ-9: Total score 0 04/27/25 13:55 Depression Screening Interpretation: Negative Thrive Assessment: Date of Thrive Assessment Date Thrive assessed 11/24/24 04/27/25 13:55 Currently or been in a relationship where the following occur: I choose not to answer Coding Level of Care Code Est Pt Level 4 (97825) Complex EM visit Add On G2211 Diagnoses Osteoarthritis, knee M17.9 Assessment & Plan Assessment & Plan (1) Osteoarthritis, knee: Code(s): M17.9 - Osteoarthritis of knee, unspecified Category: Medical Plan: Recent knee replacement. Continue Physical Therapy. To hold on furosemide. Plan History of Present Illness - The patient is an 85-year-old female presenting with follow-up after right knee replacement surgery. - The knee replacement surgery was performed approximately two and a half weeks ago. - The patient is currently using a walker for ambulation and plans to transition to a cane as recovery progresses. - Physical therapy is ongoing, with a session attended on the day of the visit. - The patient reports edema in the right leg, which is expected post-surgery. - The patient has been prescribed Celecoxib for pain management post-surgery. - The patient reports increased urinary frequency, urinating every two to three hours at night without dysuria. Social History - The patient is currently using a walker for mobility and plans to transition to a cane as recovery progresses. Review of Systems - Musculoskeletal: Reports right knee replacement surgery two and a half weeks ago, currently using a walker. - Genitourinary: Reports increased urinary frequency, urinating every two to three hours at night without dysuria. - Cardiovascular: Reports edema in the right leg post-surgery. Physical Exam General: Cooperative and healthy appearing Nutritional Appearance: Well nourished Orientation/consciousness: Patient oriented x3 Limitations: No limitations Head: Normal to inspection General: Appearance normal, both eyes and all related structures Neck: Normal visual inspection Chest: Normal palpation of entire chest wall Respiratory: N ormal respiratory effort Neurology: Patient oriented x3, using a walker to ambulate due to recent right knee replacement two and a half weeks ago. Right knee: Surgical wound healing well. trace edema Results Plan 1. Right Knee Osteoarthritis - Continue with physical therapy to aid recovery and improve mobility. - Use a walker for ambulation, transitioning to a cane as advised by the therapist. - Celecoxib prescribed for pain management; assess the need for continuation ba sed on pain levels. 2. Increased Urinary Frequency - Monitor urinary symptoms; consider further evaluation if symptoms persist or worsen. 3. Edema Of The Right Leg - Monitor for changes in swelling; consider holding off diuretics unless clinically indicated. Discussion Notes During the visit, we discussed the patient's recovery from right knee replacement surgery, including the use of a walker and transition to a cane. We also addressed the management of pain with Celecoxib and the decision to hold off on diuretics for edema. The patient was advised to monitor urinary frequency and return for further evaluation if symptoms persist. Patient Instructions - Continue using the walker for mobility and transition to a cane as advised by your therapist. - Take Celecoxib as prescribed for pain management and assess the need for continuation based on pain levels. - Monitor urinary frequency and report any persistent or worsening symptoms. - Follow up in six months unless symptoms require earlier evaluation.
[2025-04-27 13:50] VITALS: BP 142/70; TEMP 36.3; BMI 29.9
--- OUTSIDE RECORDS SUMMARY | 2025-04-27 13:59 | XMS_ITS | Clinical Summary ---
Author Organization [facility] Address [address] [place] [address] Care Team Providers Care Electronic Musical Instrument Repairer Name Role Phone Unavailable Primary Care Provider Unavailabl e Encounters Date Type Department Care Team Description 04/27/2025 Scanned Document [facility] ORTHO SURGERY SCAN Orthopedic Surgery, Scan from Last 3 Months Social History Tobacco Use Types Packs/Day Years Used Date Smoking Tobacco: Never Assessed Comments Unknown Sex and Gender Information Value Date Recorded Sex Assigned at Not on file Legal Sex Female 7:02 PM EST Gender Identity Not on file Sexual Orientation Not on file Plan of Treatment Health Maintenance Due Date Last Done Comments DTaP/Tdap/Td Vaccines (1 - Tdap) 1961 Pneumococcal Vaccines 50+ (1 of 1 - PCV) 1992 Zoster (Shingles) Vaccine (1 of 2) 1992 RSV Vaccine 60 years and old er and Patients (1 - 1-dose 75+ series) 2017 COVID-19 Vaccine ( - 2023-2 5 season) 2024 Hepatitis B Vaccines Aged Out No long er eligible based on patient's age to complete this topic
== END 2025-04-27 14:47 | disposition home or self-care (01) ==
LOC: HO.HMCH 13:48
PROVIDERS: PCP Internal Medicine; Visit Provider Internal Medicine
DX: M17.9 Osteoarthritis of knee, unspecified (principal)

== ENCOUNTER → 2025-04-27 13:47 | Outpatient (BNVA) | payer MEDICARE, SELFPAY | PROVIDERS: PCP Internal Medicine; Visit Provider Internal Medicine | DX: Z96.651 Presence of right artificial knee joint (principal) | CPT/HCPCS: 99212 ==

== ENCOUNTER 2025-05-08 08:02 | Outpatient (AMB) | payer MEDICARE, SELFPAY ==
--- NOTE | 2025-05-08 08:15 | AM.OFFWIN_ITS ---
Intake Vital Signs 05/08/25 08:27 Height 4 ft 11 in Weight 142 lb BMI 28.7 BP 138/66 Blood Pressure Location Rt brachial Position Sitting Pulse 69 Pulse Source Pulse Oximeter Temp 98.3 F Temp Source Oral Pulse Oximetry (%) 96 Oxygen Delivery Method Room Air Intake Visit Reasons: EP UTI Patient Tobacco Use Status: Never used Tobacco Allergies No Known Allergies Allergy (Verified 05/08/25 08:33) Do you need a note to return to daycare/school/sports/work: No HPI HPI Comments History of Present Illness Details History - The patient is an 85-year-old female p resenting with symptoms suggestive of a urinary tract infection. - Reports burning sensation during urina tion, urgency, and episodes of incontinence. - Symptoms include darkening of urine an d mild abdominal discomfort. - No fever, chills, or vomiting reported . - History of knee surgery without cathet er insertion. - She denies back pain, n/v/d, hematuria , or vaginal itching. Physical Exam General: Cooperative, healthy appearing, comfortable, no acute distress and well developed Cardiac: Normal S1 and S2. RRR, no M/R/G noted. Respiratory: Normal respiratory effort and able to speak in complete sentences. Clear to auscultation bilaterally. No w/r/r noted. Skin: No rashes or lesions noted. GI: Normal inspection. Normal BS noted. Soft, non-tender, non-distended. No TTP of all 4 quadrants. No guarding or rebound tenderness noted. Back: Negative CVA bilaterally Patient was informed and verbally consented to the use of an ambient scribe for clinic note documentation during this visit. 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 Son No problems noted. Daughter No problems noted. Social History Household Members: Spouse Housing: Apartment Alcohol intake: current Alcohol intake frequency: a few times a month Patient Tobacco Use Status: Never used Tobacco Tobacco use type: Cigarette e-Cigarette/Vaping Use: Never Used Second Hand Smoke Exposure: No Advance Directives Date on File: 12/01/24 service: No Current occupational status: retired Cognitive needs: Yes (Walker) Hearing needs: Yes (hear aide) Vision needs: No Review of Systems Const All systems reviewed & are unremarkable except as noted in HPI and below Physical Exam Vital Signs: Last Vital Signs Temp 98.3 F 05/08/25 08:27 Pulse 69 05/08/25 08:27 BP 138/66 05/08/25 08:27 Pulse Ox 96 05/08/25 08:27 Oxygen Delivery Method Room Air 05/08/25 08:27 BMI result Body Mass Index 28.7 Assessment & Plan Assessment & Plan (1) Dysuria: Code(s): R30.0 - Dysuria Plan Most likely UTI UA in the office +leuko Plan - Urine culture was sent to the lab for confirmation of UTI. - Antibiotics were prescribed for treatment. - Drink lots of fluids - will call with the results - follow up with PCP Orders: Orders AMB Urinalysis Automated Today Z13.9 - Encounter for screening, unspecified Urine Culture Today N39.0 - Urinary tract infection, site not specified Medications: New cefuroxime axetil 500 mg PO Q12H 10 tabs 0RF Coding Level of Care Code Est Pt Level 3 (50749) Diagnoses Dysuria R30.0
[2025-05-08 08:27] VITALS: BP 138/66; PULSE 69; TEMP 36.8; O2SAT 96; BMI 28.7
== END 2025-05-08 09:21 | disposition home or self-care (01) ==
PROVIDERS: PCP Internal Medicine; Visit Provider Physician Assistant Medical
DX: Z13.9 Encounter for screening, unspecified (principal); R30.0 Dysuria

== ENCOUNTER 2025-05-08 08:02 | Outpatient (REF) | payer MEDICARE, SELFPAY ==
--- OUTSIDE RECORDS SUMMARY | 2025-05-08 13:42 | XMS_ITS | Clinical Summary ---
Author Organization [facility] Address [address] [place] [address] Care Team Providers Care Special Needs Caregiver Name Role Phone Unavailable Primary Care Provider Unavailabl e Encounters Date Type Department Care Team Description 04/27/2025 Scanned Document [facility] ORTHO SURGERY SCAN Orthopedic Surgery, Scan [...]
== END 2025-05-08 08:03 | disposition home or self-care (01) ==
LOC: HO.LNP 08:02
PROVIDERS: PCP Internal Medicine; Visit Provider Physician Assistant Medical
DX: R30.0 Dysuria (principal); N39.0 Urinary tract infection, site not specified; Z13.89 Encounter for screening for other disorder
CPT/HCPCS: 81003; 87086; 87088; 87186; 99212

== ENCOUNTER 2025-07-12 15:21 | Outpatient (AMB) | payer MEDICARE, SELFPAY ==
--- NOTE | 2025-07-12 15:27 | A.OFFPC_ITS ---
Vital Signs 07/12/25 15:28 Height 4 ft 11 in Weight 149 lb 8 oz BMI 30.2 BP 130/60 Blood Pressure Location Lt brachial Position Sitting Pulse 71 Pulse Source Pulse Oximeter Temp 97.3 F Temp Source Temporal Artery Scan Pulse Oximetry (%) 94 Oxygen Delivery Method Room Air Intake Visit Reasons: follow up Intake Note: Patient is here to follow up on OA, Asthma, HTN. 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 Son No problems noted. Daughter No problems noted. Social History Household Members: Spouse Housing: Apartment Alcohol intake: current Alcohol intake frequency: a few times a month Patient Tobacco Use Status: Never used Tobacco Tobacco use type: Cigarette e-Cigarette/Vaping Use: Never Used Second Hand Smoke Exposure: No Advance Directives Date on File: 12/01/24 service: No Current occupational status: retired Cognitive needs: Yes (Cane) Hearing needs: Yes (hear aide) Vision needs: No Questionnaire Thrive Questionnaire Date Thrive assessed: 04/27/25 I am a: Patient What is your living situation today?: I have a steady place to live Within the past 12 months, did the food you bought not last and you didn't have the money to get more?: Often true Within the past 12 months, did you worry whether your food would run out before you got money to buy more?: Often true Do you have trouble paying for medicines?: No Do you have trouble getting transportation to medical appointments?: No Do you have trouble paying your heating and electricity bill?: No Do you have trouble taking care of your child, family member or friend?: No Do you have trouble with day-to-day activities such as bathing, preparing meals, shopping, managing finances, etc.?: No Are you currently unemployed and looking for a job?: No Are you interested in more education?: No Please select the resources that you would like help with: None Currently or been in a relationship where the following occur: I choose not to answer THRIVE Score: 2 CHARMAINE-7 AMB Questionnaire CHARMAINE-7 Date CHARMAINE - 7 assessed: 11/24/24 Source: Developed by Drs. Easton Peña, Kim Smith, Irvin Arvizu and colleagues, with an educational robina from [employer]. Physical exam (Primary Care) Vital Signs: Last Vital Signs Temp 97.3 F 07/12/25 15:28 Pulse 71 07/12/25 15:28 BP 130/60 07/12/25 15:28 Pulse Ox 94 07/12/25 15:28 Oxygen Delivery Method Room Air 07/12/25 15:28 BMI result Body Mass Index 30.2 Tobacco/Smoking Status: Tobacco use Status Tobacco use date assessed 07/12/25 07/12/25 15:40 Patient Tobacco Use Status Never used Tobacco 07/12/25 15:40 Tobacco use type Cigarette 07/12/25 15:40 e-Cigarette/Vaping Use Never Used 07/12/25 15:40 Thrive Assessment: Date of Thrive Assessment Date Thrive assessed 04/27/25 07/12/25 15:40 Currently or been in a relationship where the following occur: I choose not to answer Coding Level of Care Code Est Pt Level 4 (25738) Complex EM visit Add On G2211 Diagnoses Arthritis of right knee M17.11 Assessment & Plan Assessment & Plan (1) Arthritis of right knee: Code(s): M17.11 - Unilateral primary osteoarthritis, right knee Category: Medical Plan: Continue current treatment of exercise. Continue to use the cane Plan History of Present Illness - The patient is an 85-year-old female presenting for follow-up after knee replacement surgery and general health maintenance. - Osteoarthritis of the knee: The patient underwent knee replacement surgery four months ago, resulting in significant pain relief and reduced need for pain medication. - Varicose veins: The patient has a history of varicose veins, which are noted but not currently causing significant issues. - Preventative care: The patient received an influenza vaccination recently. Health Maintenance - Influenza vaccination administered recently Social History - Mobility: The patient uses a cane for ambulation outside the home but can walk without it indoors. Review of Systems - Musculoskeletal: Reports no pain in the right knee post-surgery. - Gastrointestinal: Denies abdominal pain. Physical Exam - Musculoskeletal: Examination of the right knee post-surgery, patient reports no pain Results Plan Patient was informed and verbally consented to the use of an ambient scribe for clinic note documentation during this visit. 1. Osteoarthritis Of The Knee - Continue monitoring knee function and pain levels. - Encourage continued use of Tylenol as needed for pain management. 2. Varicose Veins - Monitor for any changes or complications related to varicose veins. 3. Preventative Care: Influenza Vaccination - Influenza vaccination administered, no further action required at this time. Discussion Notes The patient was advised to continue monitoring the function and pain levels of the knee post-surgery. The use of Tylenol for pain management was discussed and encouraged as needed. The patient was also informed about the importance of monitoring varicose veins for any changes or complications. The influenza vaccination was administered, and no further action is required at this time. Patient Instructions - Continue using Tylenol as needed for knee pain. - Monitor varicose veins for any changes or complications. - Follow up in three months for routine check-up.
[2025-07-12 15:28] VITALS: BP 130/60; PULSE 71; TEMP 36.3; O2SAT 94; BMI 30.2
--- OUTSIDE RECORDS SUMMARY | 2025-07-12 18:58 | XMS_ITS | Encounter Summary ---
Author Organization [facility] Address [address] [place] [address] Care Team Providers Care Office Machine Punch Operator Name Role Phone Unavailable Primary Care Provider Unavailabl e Encounter Details Date Type Department Care Team (Late st Contact Info) Description 04/27/2025 Scanned Document [facility] ORTHO SURGERY SCAN Orthopedic Surgery, Scan Social History Tobacco Use Types Packs/Day Years Used Date Smoking Tobacco: Never Assessed Comments Unknown Sex and Gender Information Value Date Recorded Sex Assigned at Not on file Legal Sex Female 7:02 PM EST Gender Identity Not on file Sexual Orientation Not on file documented as of this encounter Plan of Treatment Not on file documented as of this encounter Visit Diagnoses Not on filedocumented in this encounter
--- OUTSIDE RECORDS SUMMARY | 2025-07-12 18:58 | XMS_ITS | Clinical Summary ---
Author Organization [facility] Address [address] [place] [address] Care Team Providers Care Protective Services Case Worker Name Role Phone Unavailable Primary Care Provider Unavailabl e Encounters Date Type Department Care Team Description 04/27/2025 Scanned Document [facility] ORTHO SURGERY SCAN Orthopedic Surgery, Scan from [...] Health Maintenance Due Date Last Done Comments Advance Care Planning 1942 DTaP/Tdap/Td Vaccines (1 - Tdap) 1961 Pneumococcal Vaccines 50+ (1 of 1 - PCV) 1992 Zoster (Shingles) Vaccine (1 of 2) 1992 RSV Vaccine 50 years and old er and Patients (1 - 1-dose 75+ series) 2017 COVID-19 Vaccine ( - 2023-2 5 season) 2025 Hepatitis B Vaccines Aged Out No long er eligible based on patient's age to complete this topic
== END 2025-07-12 16:15 | disposition home or self-care (01) ==
LOC: HO.HMCH 15:22
PROVIDERS: PCP Internal Medicine; Visit Provider Internal Medicine
DX: M17.11 Unilateral primary osteoarthritis, right knee (principal)

== ENCOUNTER → 2025-07-12 15:21 | Outpatient (BNVA) | payer MEDICARE, SELFPAY | PROVIDERS: PCP Internal Medicine; Visit Provider Internal Medicine | DX: M17.11 Unilateral primary osteoarthritis, right knee (principal); I83.90 Asymptomatic varicose veins of unspecified lower extremity; Z96.659 Presence of unspecified artificial knee joint | CPT/HCPCS: 99212 ==

== ENCOUNTER 2025-08-11 07:45 | Outpatient (AMB) | payer MEDICARE, SELFPAY ==
[2025-08-11 07:47] VITALS: BP 110/60; PULSE 80; RESP 17; TEMP 36.7; O2SAT 97; BMI 30.3
--- NOTE | 2025-08-11 07:47 | AM.OFFWIN_ITS ---
Intake Vital Signs 08/11/25 07:47 Height 4 ft 11 in Weight 150 lb BMI 30.3 BP 110/60 Blood Pressure Location Rt brachial Position Sitting Respiration 17 Pulse 80 Pulse Source Pulse Oximeter Temp 98.1 F Temp Source Oral Pulse Oximetry (%) 97 Oxygen Delivery Method Room Air Intake Visit Reasons: EP both ears clogged headache pressure under eyes Intake Note: Pt is here today c/o bilateral ear blocked and sinus pressure and congestion x7days Patient Tobacco Use Status: Never used Tobacco Allergies No Known Allergies Allergy (Verified 08/11/25 07:52) HPI HPI Comments History of Present Illness Details History - The patient is an 85-year-old female p resenting with sinusitis symptoms including nasal congestion and cough. - The patient reports experiencing sinus congestion and cough for over a week. - Detailed Description of the Problem: T he patient describes significant nasal congestion, mucus production, and a persistent cough that disrupts sleep. - Interventions: The patient has been us ing Flonase nasal spray and Claritin, although she is unsure of their effectiveness. Review of Systems - Respiratory: Reports persistent cough and nasal congestion. Denies dyspnea or wheezing. - ENT: Reports sinus pain and mucus prod uction. Denies ear pain. All systems reviewed and are unremarkable except as noted in HPI Physical Exam General: Cooperative, healthy appearing, comfortable and no acute distress Orientation/consciousness: Patient oriented x3 Limitations: No limitations Head: Normal to inspection Ears: Hearing grossly normal bilaterally, external ears normal, EAC's normal bilaterally and TM's normal bilaterally Nose: Normal external nose present, Normal nares present and clear nasal discharge present Face and sinus: normal appearing, TTP bilateral maxillary sinuses Mouth: Normal oral and palatal mucosa present and moist mucous membranes Throat: Some tenderness in the mouth of the throat, tonsils normal, no exudates, uvula midline, posterior oropharynx erythema Eyes: Appearance normal, both eyes and all related structures Neck: Normal visual inspection, full ROM Respiratory: Clear to auscultation bilaterally. Normal respiratory effort, able to speak in complete sentences, actively coughing, no respiratory distress, not tachypneic, no tripod positioning and no use of accessory muscles Cardiovascular: Regular rate and rhythm. 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 Son No problems noted. Daughter No problems noted. Social History Household Members: Spouse Housing: Apartment Alcohol intake: current Alcohol intake frequency: a few times a month Patient Tobacco Use Status: Never used Tobacco Tobacco use type: Cigarette e-Cigarette/Vaping Use: Never Used Second Hand Smoke Exposure: No Advance Directives Date on File: 12/01/24 service: No Current occupational status: retired Cognitive needs: Yes (Cane) Hearing needs: Yes (hear aide) Vision needs: No Physical Exam Vital Signs: Last Vital Signs Temp 98.1 F 08/11/25 07:47 Pulse 80 08/11/25 07:47 Resp 17 08/11/25 07:47 BP 110/60 08/11/25 07:47 Pulse Ox 97 08/11/25 07:47 Oxygen Delivery Method Room Air 08/11/25 07:47 BMI result Body Mass Index 30.3 Assessment & Plan Assessment & Plan (1) Acute viral sinusitis: Code(s): J01.90 - Acute sinusitis, unspecified; B97.89 - Other viral agents as the cause of diseases classified elsewhere Plan: Plan Patient was informed and verbally consented to the use of an ambient scribe for clinic note documentation during this visit. Sinusitis - VSS, pt well appearing and PE unremarkable. - Continue using Flonase nasal spray twice daily during illness. - Consider using a Neti Pot with distilled water to help clear nasal passages. - Prescription for Flonase to be sent to the pharmacy for a three-month supply. Medications: New benzonatate 200 mg PO BEDTIME PRN 10 caps 0RF cough fluticasone propionate 50 mcg/actuation administer into each nostril 1 spray intranasal Q24H 48 grams 0RF 90 days Coding Level of Care Code Est Pt Level 3 (85592) Diagnoses Acute viral sinusitis J01.90; B97.89
--- OUTSIDE RECORDS SUMMARY | 2025-08-11 07:47 | XMS_ITS | Clinical Summary ---
Author Organization [facility] Address [address] [place] [address] Care Team Providers Care Law Enforcement Instructor Name Role Phone Unavailable Primary Care Provider Unavailabl e Social History Tobacco Use Types Packs/Day Years [...]
--- OUTSIDE RECORDS SUMMARY | 2025-08-11 07:47 | XMS_ITS | Encounter Summary ---
Author Organization [facility] Address [address] [place] [address] Care Team Providers Care Mosaic Tiler Name Role Phone Unavailable Primary Care Provider Unavailabl e Encounter Details Date Type Department Care Team (Late st Contact Info) Description 04/27/2025 Scanned Document [facility] ORTHO SURGERY SCAN Orthopedic Surgery, Scan Social [...]
== END 2025-08-11 08:18 | disposition home or self-care (01) ==
PROVIDERS: PCP Internal Medicine; Visit Provider Physician Assistant
DX: J01.90 Acute sinusitis, unspecified (principal); B97.89 Other viral agents as the cause of diseases classified elsewhere

== ENCOUNTER → 2025-08-11 07:45 | Outpatient (BNVA) | payer MEDICARE, SELFPAY | PROVIDERS: PCP Internal Medicine; Visit Provider Physician Assistant | DX: J01.90 Acute sinusitis, unspecified (principal); B97.89 Other viral agents as the cause of diseases classified elsewhere | CPT/HCPCS: 99212 ==

== ENCOUNTER 2025-08-12 03:34 | Emergency (ER) | payer MEDICARE, SELFPAY ==
[2025-08-12] VITALS (9 sets, daily range): BP systolic 136–164; BP diastolic 52–72; PULSE 74–115; RESP 18–24; TEMP 36.7–38.2; O2SAT 94–99; BMI 30.3
--- NOTE | ~2025-08-12 | XR_ITS ---
CLINICAL HISTORY: chest pain 1 view chest x-ray Comparison: CT/SR - CT CHEST WITH IV CONTRAST - 12/01/24 08:35 EST CR/SR - XR CHEST 2 VIEWS - 11/24/24 13:01 EST CR - XR CHEST 2V - 11/16/24 00:15 EST Findings: No consolidation or effusion. Cardiomediastinal silhouette is stable. No acute osseous abnormality. IMPRESSION: No acute cardiopulmonary findings. This document has been electronically signed by: Ashu Ventura MD on 08/12/2025 05:49:33
--- OUTSIDE RECORDS SUMMARY | 2025-08-12 04:00 | XMS_ITS | Clinical Summary ---
Author Organization [facility] Address [address] [place] [address] Care Team Providers Care Melter Assistant Name Role Phone Unavailable Primary Care Provider [...]
--- OUTSIDE RECORDS SUMMARY | 2025-08-12 04:00 | XMS_ITS | Encounter Summary ---
Author Organization [facility] Address [address] [place] [address] Care Team Providers Care Fence Repairman Name Role Phone Unavailable Primary Care Provider Unavailabl e Encounter Details Date Type Department Care Team (Late st Contact Info) Description 04/27/2025 Scanned Document [facility] [...]
[2025-08-12] MEDS: guaiFEN/Codeine SF 200/20/10ML 10 ML LIQUID PO (04:08)
[2025-08-12 04:34] LABS: Resp Syncy Virus RNA Qual PCR NEGATIVE (Negative); SARS COV2 PCR INHOUSE NEGATIVE (Negative)
[2025-08-12 04:35] LABS: Hematocrit 37.0 % (37.0-47.0); Hemoglobin 12.0 g/dl (12.0-16.0); Imm Gran Abs Auto 0.32 X10*3/uL (0.00-0.03); Imm Gran Pct Auto 3.5 % (0.0-0.4); Lymphocytes Absolute Auto 2.1 X10*3/uL (1.2-4.9); MANUAL DIFF FLAG SCAN; Mean Corpuscular HGB Conc 32.4 g/dl (31.0-35.0); Mean Corpuscular Hemoglobin 28.3 pg (27.0-33.0); Mean Corpuscular Volume 87.3 fL (80.0-98.0); NRBC Abs Auto 0.000 X10*3/uL (0.0-0.012); NRBC Pct Auto 0.0 /100WBC (0.0-0.2); Platelet Count 196 X10*3/uL (160-400); Red Blood Count 4.24 X10*6/uL (4.20-5.50); SCAN SMEAR FLAG 1; White Blood Count 9.3 X10*3/uL (4.8-10.8)
[2025-08-12] MEDS: Albuterol Sulfate 2.5 MG, Albuterol/Iprat 2.5/0.5MG 3 ML 3 ML INHALE (04:36)
--- NOTE | 2025-08-12 04:46 | ED.GENADULT ---
HPI - General Adult General Chief complaint: Upper Respiratory Symptoms Stated complaint: resp symptoms/SOB Time Seen by Provider: 08/12/25 03:53 Source: patient Limitations: no limitations History of Present Illness ED Provider: Rosario Ross PA-C HPI narrative: 85-year-old female with a history of hypertension, asthma, allergic rhinitis, arthritis, DVT on apixaban, who presents with cough and cold symptoms x1 week. Associated nasal congestion, sinus pain and pressure, dry repetitive cough with the wheezing at times, generalized malaise. Patient thinks she might have a fever, however she has not taken her temperature. Patient was seen at urgent Care, she was given an inhaler, no additional medication. Her symptoms remain refractory. Related Data Home Medications ?Medication ?Instructions ?Recorded ?Confirmed loratadine 10 mg tablet (Claritin) 10 mg PO DAILY 12/31/23 07/17/25 acetaminophen 650 mg 650 mg PO Q6H 04/27/25 07/17/25 tablet,extended release (Tylenol Arthritis Pain) Previous Rx's ?Medication ?Instructions ?Recorded walker #1 ea 12/26/22 albuterol sulfate 90 mcg/actuation 1 puff PO QID PRN for wheezing #18 12/16/24 aerosol inhaler ea furosemide 20 mg tablet 20 mg PO DAILY #14 tabs 02/03/25 pantoprazole 40 mg tablet,delayed 40 mg PO DAILY #90 tabs 02/18/25 release losartan 50 mg tablet 50 mg PO DAILY hypertension 30 03/22/25 days #90 tabs apixaban 2.5 mg tablet (Eliquis) 2.5 mg PO BID #180 tabs 05/14/25 cholecalciferol (vitamin D3) 1,250 1,250 mcg PO QWEEK #12 caps 06/05/25 mcg (50,000 unit) capsule metoprolol succinate 25 mg 25 mg PO DAILY #90 tabs 06/29/25 tablet,extended release 24 hr amitriptyline 10 mg tablet 10 mg PO DAILY #90 tabs 07/21/25 benzonatate 200 mg capsule 200 mg PO BEDTIME PRN cough #10 08/11/25 caps fluticasone propionate 50 1 spray intranasal Q24H 90 days 08/11/25 mcg/actuation nasal #48 grams spray,suspension azithromycin 250 mg tablet 250 mg PO DAILY 4 days #4 tabs 08/12/25 cefuroxime axetil 500 mg tablet 500 mg PO Q12H #20 tabs 08/12/25 codeine 10 mg-guaifenesin 100 mg/5 10 ml PO Q4-6H PRN cough #120 mL 08/12/25 mL oral liquid (Guaifenesin AC) prednisone 20 mg tablet 40 mg (2 x 20 mg) PO DAILY #8 tabs 08/12/25 Allergies Allergy/AdvReac Type Severity Reaction Status Date / Time No Known Allergies Allergy Verified 08/12/25 03:41 Review of Systems Review of Systems: Yes all other systems are reviewed and are negative Constitutional: Constitutional: Reports fatigue, Reports fever(s) and Reports malaise ENT: Reports nasal congestion, Reports sinus pain and Reports sinus pressure Cardiovascular: Cardiovascular: Denies chest pain and Denies dyspnea Respiratory: Respiratory: Reports chest congestion, Reports cough, Denies dyspnea and Reports wheezing Gastrointestinal: Gastrointestinal: Denies nausea and Denies vomiting Endocrine: Endocrine: Reports fatigue Allergic/Immunologic: Allergic/Immunologic: Reports wheezing PMFSH Past Medical History Attestation statement: The following information was validated with the patient. 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 Son No problems noted. Daughter No problems noted. Social History Social History Household Members: Spouse Housing: Apartment Alcohol intake: current Alcohol intake frequency: a few times a month Patient Tobacco Use Status: Never used Tobacco Tobacco use type: Cigarette e-Cigarette/Vaping Use: Never Used Second Hand Smoke Exposure: No Advance Directives: Yes Advance Directives on File: Yes Advance Directives Date on File: 12/01/24 service: No Current occupational status: retired Cognitive needs: Yes (Cane) Hearing needs: Yes (hear aide) Vision needs: No Physical Exam ED Vital Signs: Vital Signs - 24 hr 08/12/25 03:37 08/12/25 04:16 08/12/25 04:36 Temperature 98.0 F 100.8 F H Pulse Rate 110 H 115 H 74 Respiratory Rate 20 20 18 Blood Pressure 164/72 H Pulse Oximetry 97 99 Oxygen Delivery Method Room Air Room Air 08/12/25 05:15 Temperature Pulse Rate 85 Respiratory Rate 20 Blood Pressure 159/52 H Pulse Oximetry 94 Oxygen Delivery Method Room Air BMI result Body Mass Index 30.3 Const Other: Alert Orientation/consciousness: patient oriented x3 Resp Other: Somewhat tachypneic, active bronchospasm cough, no active wheezing, no obvious crackles posterior cornejo Cardio Other: Normal peripheral perfusion Skin Other: Warm dry no rash Neuro General: patient oriented x3, gait normal, no focal motor deficits and CN's II-XI intact bilaterally Psych Other: Cooperative Course Reevaluation(s) Reevaluation #1: At 4:31 a.m. on August 12, a sepsis focused exam was performed. In addition to screening labs, adding blood cultures and lactic. We will give a 500 mL fluid bolus, the patient is not hypotensive, starting empiric antibiotics ceftriaxone and azithromycin, giving Tylenol for the fever. Time: 04:31 Reevaluation #2: Ambulated the patient around the entire emergency room, she maintain oxygen saturation between 97 98% on room air, she will prefer to go home, I agree there was no indication to admit her Time: 05:32 Medications Administered Generic Name Dose Route Start Last Admin Trade Name Freq PRN Reason Stop Dose Admin Azithromycin 500 mg/ Sodium 250 mls @ 125 mls/hr 08/12/25 04:31 08/12/25 05:14 Chloride IV 08/12/25 06:30 125 mls/hr ONCE ONE Administration Discontinued Medications Generic Name Dose Route Start Last Admin Trade Name Freq PRN Reason Stop Dose Admin Acetaminophen 975 mg 08/12/25 04:15 08/12/25 04:40 Acetaminophen 325 Mg Tablet PO 08/12/25 04:16 975 mg ONCE ONE Administration Albuterol Sulfate 2.5 mg/ 0 mg 08/12/25 04:18 08/12/25 04:36 Albuterol/Ipratropium 3 ml INHALE 08/12/25 04:19 5 dose ONCE ONE Administration Guaifenesin/Codeine Phosphate 10 ml 08/12/25 03:58 08/12/25 04:08 Guaifen/Codeine Sf 200/20/10ml 10 Ml Liquid PO 08/12/25 03:59 10 ml ONCE ONE Administration Sodium Chloride 500 mls @ 500 mls/hr 08/12/25 04:15 08/12/25 04:40 Ns IV 08/12/25 05:14 500 mls/hr .Q1H ONE Administration Ceftriaxone Sodium 2 gm/ 50 mls @ 100 mls/hr 08/12/25 04:31 08/12/25 05:13 Sodium Chloride IV 08/12/25 05:00 Infused ONCE ONE Infusion Prednisone 40 mg 08/12/25 03:57 08/12/25 04:08 Prednisone 20 Mg Tablet PO 08/12/25 03:58 40 mg ONCE ONE Administration Medical Decision Making Medical Decision Making [facility] Narrative: 85-year-old female with a history of hypertension, asthma, allergic rhinitis, arthritis, DVT on apixaban, who presents with cough and cold symptoms x1 week. Associated nasal congestion, sinus pain and pressure, dry repetitive cough with the wheezing at times, generalized malaise. Patient thinks she might have a fever, however she has not taken her temperature. Patient was seen at urgent Care, she was given an inhaler, no additional medication. Her symptoms remain refractory. Problem: Age, asthma History: Per patient I have considered the following differential diagnoses: Asthma exacerbation, viral syndrome, pneumonia, bronchitis, sinusitis , sepsis Plan: Patient meets sepsis criteria, given nature of her symptoms, Respiratory source is likely, this is pneumonia versus bronchitis, chest x-ray pending. Obtaining screening labs including blood cultures and lactic, viral panel in process. We will be giving a 500 mL fluid bolus, the patient is not hypotensive, Tylenol for fever, azithromycin and ceftriaxone. I have independently reviewed the following tests: Labs: Viral panel negative, no electrolyte abnormalities, lactic 1.1, no leukocytosis, not anemic Chest x-ray: No obvious pneumonia on my read when compared to prior study, no pleural effusion no pulmonary edema Differential Diagnosis Differential Diagnoses: The differential diagnosis associated with the presentation includes See [facility] Admission/Observation Consideration of admission/observation: Escalation of care including admission/observation considered Lab Data [facility] Lab Attestation statement: I reviewed the patient's lab results. 08/12/25 04:29 08/12/25 04:29 Labs: Lab Results 08/12/25 08/12/25 Range/Units 03:49 04:29 WBC 9.3 (4.8-10.8) X10*3/uL RBC 4.24 (4.20-5.50) X10*6/uL Hgb 12.0 (12.0-16.0) g/dl Hct 37.0 (37.0-47.0) % MCV 87.3 (80.0-98.0) fL MCH 28.3 (27.0-33.0) pg MCHC 32.4 (31.0-35.0) g/dl RDW 13.9 (11.0-16.0) % Plt Count 196 D (160-400) X10*3/uL MPV 11.7 (9.4-12.3) fL Immature Gran % (Auto) 3.5 H (0.0-0.4) % Neut % (Auto) 55.2 (45-73) % Lymph % (Auto) 22.9 (20-40) % [place] % (Auto) 18.2 H (2-11) % Eos % (Auto) 0.0 (0-4) % Baso % (Auto) 0.2 (0-2) % Lymph # (Auto) 2.1 (1.2-4.9) X10*3/uL [place] # (Auto) 1.7 H (0.1-1.2) X10*3/uL Eos # (Auto) 0.0 (0.0-0.4) X10*3/uL Baso # (Auto) 0.0 (0.0-0.2) X10*3/uL Abs Immat Gran (auto) 0.32 H (0.00-0.03) X10*3/uL Absolute Neuts (auto) 5.1 (2.0-8.3) x10*3/uL Absolute Nucleated RBC 0.000 (0.0-0.012) X10*3/uL Nucleated RBC % (auto) 0.0 (0.0-0.2) /100WBC Smear Tech's Comments VERIFIED Sodium 138 (135-145) mmol/L Potassium 3.7 (3.3-5.1) mmol/L Chloride 104 (96-108) mmol/L Carbon Dioxide 23 (22-29) mmol/L Anion Gap 15 (12-20) BUN 16 (9-16) mg/dL Creatinine 0.82 (0.5-1.4) mg/dL Estim Creat Clear Calc 43.5 Estimated GFR > 60 Random Glucose 126 H (60-115) mg/dL Lactic Acid 1.1 (0.5-2.0) mmol/L Calcium 9.6 D (8.4-10.2) mg/dL Magnesium 1.9 (1.6-2.6) mg/dL Total Bilirubin 0.5 (0.0-1.0) mg/dL AST 17 (5-31) U/L ALT 11 (0-31) U/L Alkaline Phosphatase 72 (39-117) U/L Total Protein 7.9 (6.5-8.0) g/dL Albumin 4.7 (3.5-5.0) g/dL Influenza Type A (PCR) NEGATIVE (Negative) Influenza Type B (PCR) NEGATIVE (Negative) RSV RNA Qual (PCR) NEGATIVE (Negative) SARS-CoV-2 RNA (RT-PCR) NEGATIVE (Negative) Independent Interpretation I performed an independent interpretation of an: Plain X-Ray Interpretation: See MDM Radiology Impression Discussion of test interpretation with radiology: I have reviewed the radiologist's reading. Discharge Plan Discharge Clinical Impression: Bronchitis, Fever Patient Disposition: Home, Self-Care Instructions: Fever in Adults (ED), Acute Bronchitis (ED) Additional Instructions: You were found to have a fever in the emergency room, you are being treated for bronchitis. See home care instructions. Take the cefuroxime as directed this is an antibiotic, take the azithromycin as directed this is a 2nd antibiotic. Use your inhaler as needed, every 4-6 hours, for cough and wheezing. Take the steroid as directed. Use the cough syrup as needed, this will help thin your secretions, making your cough more productive. If you develop a fever take [id number] Tylenol 650 mg every 6 hours. Follow up with your primary care provider as needed. Prescriptions: New cefuroxime axetil 500 mg tablet 500 mg PO Q12H Qty: 20 0RF azithromycin 250 mg tablet 250 mg PO DAILY 4 Days Qty: 4 0RF Rx Instructions: start on day 2 of therapy prednisone 20 mg tablet 40 mg PO DAILY Qty: 8 0RF codeine-guaifenesin [Guaifenesin AC] 10-100 mg/5 mL liquid 10 ml PO Q4-6H PRN (Reason: cough) Qty: 120 0RF No Action (DME) mikayla Stokes See Rx Instructions .Route Qty: 1 0RF Rx Instructions: As directed albuterol sulfate 90 mcg/actuation HFA aerosol inhaler 1 puff PO QID PRN (Reason: for wheezing) Qty: 18 3RF furosemide 20 mg tablet 20 mg PO DAILY Qty: 14 0RF pantoprazole 40 mg tablet,delayed release (DR/EC) 40 mg PO DAILY Qty: 90 1RF losartan 50 mg tablet 50 mg PO DAILY 30 Days Qty: 90 1RF Eliquis 2.5 mg tablet 2.5 mg PO BID Qty: 180 1RF cholecalciferol (vitamin D3) 1,250 mcg (50,000 unit) capsule 1,250 mcg PO QWEEK Qty: 12 1RF metoprolol succinate 25 mg tablet extended release 24 hr 25 mg PO DAILY Qty: 90 0RF amitriptyline 10 mg tablet 10 mg PO DAILY Qty: 90 1RF acetaminophen [Tylenol Arthritis Pain] 650 mg tablet extended release 650 mg PO Q6H loratadine [Claritin] 10 mg tablet 10 mg PO DAILY benzonatate 200 mg capsule 200 mg PO BEDTIME PRN (Reason: cough) Qty: 10 0RF fluticasone propionate 50 mcg/actuation spray,suspension 1 spray intranasal Q24H 90 Days Qty: 48 0RF Rx Instructions: administer into each nostril Print Language: Hungarian
[2025-08-12 04:49] LABS: Alanine Aminotransferase 11 U/L (0-31); Albumin Level 4.7 g/dL (3.5-5.0); Alkaline Phosphatase 72 U/L (39-117); Anion Gap 15 (12-20); Aspartate Amino Transferase 17 U/L (5-31); Blood Urea Nitrogen 16 mg/dL (9-16); Calcium 9.6 mg/dL (8.4-10.2); Carbon Dioxide 23 mmol/L (22-29); Chloride 104 mmol/L (96-108); Creatinine Clr Calc Pharmacy 43.5; Estimated Glomerular Filt Rate > 60; Magnesium 1.9 mg/dL (1.6-2.6); Potassium 3.7 mmol/L (3.3-5.1); Sodium 138 mmol/L (135-145); Total Protein 7.9 g/dL (6.5-8.0)
[2025-08-12] MEDS: Magnesium Sulfate/H2O 2 GM/50 ML PIGGYBACK IV (06:14)
--- NOTE | 2025-08-12 07:34 | PC.NURSE ---
this nurse took over patient care at 7am, patient a&ox3, vss, rr equal/non labored- lungs have rhonchi- clear with cough, pt completed iv abx, will be discharging home with .
== END 2025-08-12 07:39 | disposition home or self-care (01) ==
PROVIDERS: Physician Assistant Medical; Emergency Provider Emergency Medicine; PCP Internal Medicine
DX: J45.909 Unspecified asthma, uncomplicated (principal); R50.9 Fever, unspecified; I10 Essential (primary) hypertension; Z86.718 Personal history of other venous thrombosis and embolism; Z79.01 Long term (current) use of anticoagulants
CPT/HCPCS: 36415; 71045; 80053; 83605; 83735; 85025; 87040; 87637; 94640; 96365; 96366; 96367; 96375; 99285; J0456; J0696; J3475